=== PATIENT | female | born 1980 | race Caucasian/White ===

== ENCOUNTER 2017-04-09 09:52 | Emergency (ER) | payer MEDICAID ==
[2017-04-09] MEDS ORDERED: Sodium Chloride 0.9% 10 ML Syringe FLUSH PRN (11:32)
[2017-04-09] MEDS ORDERED: Ondansetron 4 MG/2 ML SDV IVPUSH ONE (11:33)
[2017-04-09] MEDS ORDERED: Ketorolac 30 MG/ML SDV IVPUSH ONE (11:33)
[2017-04-09] MEDS ORDERED: Sodium Chloride 0.9% 1,000 ML IV ONE (11:33)
--- NOTE | 2017-04-09 12:40 | CR ---
Chest: Two views of the chest were obtained. Comparison: No prior chest x-ray. Heart size at the upper limits of normal. Upper mediastinum is within normal limits. Lungs are clear. Bony structures are unremarkable. Surgical clips are seen within the upper abdomen. Impression: 1. Nothing acute is seen on two-view chest x-ray. Diagnostic code #2
--- NOTE | 2017-04-09 12:43 | EDM.PDOC ---
ED HPI GENERAL MEDICAL PROBLEM - General Chief Complaint: General Stated Complaint: WEAKNESS Time Seen by Provider: 04/09/17 11:32 Source of Information: Reports: Patient History Limitations: Reports: No Limitations - History of Present Illness INITIAL COMMENTS - FREE TEXT/NARRATIVE: 36-year-old female presents for evaluation and treatment of weakness, dizziness , nausea and vomiting. Patient reports that her symptoms started Wednesday. Reports that her symptoms started with a hoarse voice. She is then developed nausea, vomiting, chills, dizziness, weakness and a dry nonproductive cough. Reports 2 episodes of vomiting. She denies any abdominal pain, diarrhea or fevers. Reports she feels short of breath with exertion. Patient works at [employer]. She did not get a flu vaccine this season. Duration: Day(s): (3) - Related Data Allergies Allergy/AdvReac Type Severity Reaction Status Date / Time Penicillins Allergy Nausea and Verified 04/09/17 10:06 Vomiting Home Meds: Home Meds . [No Known Home Meds] 04/09/17 [History] Past Medical History HEENT History: Reports: Impaired Vision Other HEENT History: wears corrective lenses Social & Family History - Tobacco Use Smoking Status *Q: Current Every Day Smoker Years of Tobacco use: 19 Packs/Tins Daily: 0.5 Used Tobacco, but Quit: No Second Hand Smoke Exposure: No - Caffeine Use Caffeine Use: Reports: Soda - Recreational Drug Use Recreational Drug Use: No ED ROS GENERAL - Review of Systems Review Of Systems: See Below Constitutional: Reports: Chills, Malaise, Weakness, Fatigue. Denies: Fever HEENT: Reports: Throat Pain. Denies: Ear Pain Respiratory: Reports: Cough. Denies: Sputum Cardiovascular: Reports: Dyspnea on Exertion GI/Abdominal: Reports: Nausea, Vomiting. Denies: Abdominal Pain, Diarrhea Neurological: Reports: Headache ED EXAM, GENERAL - Physical Exam Exam: See Below Exam Limited By: No Limitations General Appearance: Alert, WD/WN, No Apparent Distress Eye Exam: Bilateral Eye: Normal Inspection Ears: Normal External Exam, Normal Canal, Hearing Grossly Normal, Normal TMs Nose: Normal Inspection Throat/Mouth: Normal Inspection, Normal Lips, Normal Oropharynx, Normal Voice, No Airway Compromise Respiratory/Chest: No Respiratory Distress, Lungs Clear, Normal Breath Sounds Cardiovascular: Normal Peripheral Pulses, Regular Rate, Rhythm, No Murmur GI/Abdominal: Soft, Non-Tender Neurological: Alert, Oriented, Normal Cognition Psychiatric: Normal Affect, Normal Mood Skin Exam: Warm, Dry, Normal Color Course - Vital Signs Last Recorded V/S: Last Vital Signs Temp 36.6 C 04/09/17 10:03 Pulse 79 04/09/17 10:03 Resp 20 04/09/17 10:03 BP 152/101 H 04/09/17 10:03 Pulse Ox 98 04/09/17 10:06 Orthostatic Blood Pressure [ 143/104 Standing] Orthostatic Blood Pressure [ 143/111 Sitting] Orthostatic Blood Pressure [ 154/104 Supine] - Orders/Labs/Meds Orders: Active Orders 24 hr Category Date Time Status Peripheral IV Care [RC] . DIRECTED Care 04/09/17 11:33 Active CULTURE STREP A CONFIRMATION [] Stat Lab 04/09/17 12:02 Results STREP SCRN A RAPID W CULT CONF [] Stat Lab 04/09/17 12:02 Results Peripheral IV Insertion Adult [OM.PC] Routine Oth 04/09/17 11:31 Ordered Labs: Laboratory Tests 04/09/17 04/09/17 Range/Units 11:50 11:50 WBC 8.29 (3.98-10.04) K/mm3 RBC 4.58 (3.98-5.22) M/mm3 Hgb 12.8 (11.2-15.7) gm/L Hct 39.9 (34.1-44.9) % MCV 87.1 (79.4-94.8) fl MCH 27.9 (25.6-32.2) pg MCHC 32.1 L (32.2-35.5) g/dl RDW Std Deviation 46.7 H (36.4-46.3) fL Plt Count 298 (182-369) K/mm3 MPV 9.6 (9.4-12.3) fl Neutrophils % (Manual) 49 (40-60) % Band Neutrophils % 3 (0-10) % Lymphocytes % (Manual) 36 (20-40) % Atypical Lymphs % 0 % Monocytes % (Manual) 7 (2-10) % Eosinophils % (Manual) 5 (0.7-5.8) % Basophils % (Manual) 0 L (0.1-1.2) Platelet Estimate Adequate RBC Morph Comment Normal Sodium 141 (136-145) mEq/L Potassium 3.9 (3.5-5.1) mEq/L Chloride 106 (98-107) mEq/L Carbon Dioxide 28 (21-32) mEq/L Anion Gap 10.9 (5-15) BUN 7 (7-18) mg/dL Creatinine 0.9 (0.55-1.02) mg/dL Est Cr Clr Drug Dosing 75.34 mL/min Estimated GFR (MDRD) > 60 (>60) mL/min BUN/Creatinine Ratio 7.8 L (14-18) Glucose 92 (74-106) mg/dL Calcium 8.7 (8.5-10.1) mg/dL Total Bilirubin 0.2 (0.2-1.0) mg/dL AST 20 (15-37) U/L ALT 27 (14-59) U/L Alkaline Phosphatase 97 (46-116) U/L C-Reactive Protein 3.2 H* (<1.0) mg/dL Total Protein 8.0 (6.4-8.2) g/dl Albumin 3.6 (3.4-5.0) g/dl Globulin 4.4 gm/dL Albumin/Globulin Ratio 0.8 L (1-2) Meds: Medications Discontinued Medications Generic Name Dose Route Start Last Admin Trade Name Freq PRN Reason Stop Dose Admin Sodium Chloride 1,000 mls @ 999 mls/hr 04/09/17 11:33 04/09/17 11:57 Normal Saline IV 04/09/17 12:33 999 mls/hr ONETIME ONE Administration Ketorolac Tromethamine 30 mg 04/09/17 11:33 04/09/17 11:59 Toradol IVPUSH 04/09/17 11:34 30 mg ONETIME ONE Administration Ondansetron HCl 4 mg 04/09/17 11:33 04/09/17 11:57 Zofran IVPUSH 04/09/17 11:34 4 mg ONETIME ONE Administration Sodium Chloride 10 ml 04/09/17 11:32 04/09/17 11:59 Saline Flush FLUSH 10 ml ASDIRECTED PRN Administration Keep Vein Open - Radiology Interpretation Free Text/Narrative:: Chest: Two views of the chest were obtained. Comparison: No prior chest x-ray. Heart size at the upper limits of normal. Upper mediastinum is within normal limits. Lungs are clear. Bony structures are unremarkable. Surgical clips are seen within the upper abdomen. Impression: 1. Nothing acute is seen on two-view chest x-ray. - Re-Assessments/Exams Free Text/Narrative Re-Assessment/Exam: 04/09/17 13:15 influenza returned negative rapid strep returned negative I reviewed the labs and imaging with the patient. I feel this is a viral upper respiratory illness. Recommend fluids, Tylenol, Motrin and rest. Note given for work. discharge instructions as documented. Departure - Departure Time of Disposition: :18 Disposition: Home, Self-Care 01 Condition: Fair Clinical Impression: Viral upper respiratory illness - Discharge Information Instructions: Upper Respiratory Infection, Adult, [id number] Referrals: PCP,None [Primary Care Provider] - Forms: ED Department Discharge, ED Return to Work/School Form Additional Instructions: make sure you are drinking plenty of fluids. Note given for work. [id number] Tylenol or Motrin as needed for headaches and body relief. Follow up with family medicine if your symptoms have not improved much within 2 weeks. Please return to the ER if your symptoms change or worsen. - My Orders Last 24 Hours: My Active Orders 04/09/17 11:31 Peripheral IV Insertion Adult [OM.PC] Routine 04/09/17 11:33 Peripheral IV Care [RC] . DIRECTED 04/09/17 12:02 CULTURE STREP A CONFIRMATION [RM] Stat STREP SCRN A RAPID W CULT CONF [RM] Stat - Assessment/Plan Last 24 Hours: My Active Orders 04/09/17 11:31 Peripheral IV Insertion Adult [OM.PC] Routine 04/09/17 11:33 Peripheral IV Care [RC] . DIRECTED 04/09/17 12:02 CULTURE STREP A CONFIRMATION [RM] Stat STREP SCRN A RAPID W CULT CONF [RM] Stat
== END 2017-04-09 13:30 | disposition home or self-care (01) ==
LOC: JD.ED 09:52
DX: J06.9 Acute upper respiratory infection, unspecified (principal); F17.210 Nicotine dependence, cigarettes, uncomplicated; Z88.0 Allergy status to penicillin
CPT/HCPCS: 36415; 71046; 80053; 85025; 86140; 87081; 87430; 87804; 96361; 96374; 96375; 99284; J1885; J2405; J7040; J7050

== ENCOUNTER 2018-07-21 10:45 | Emergency (ER) | payer MEDICAID ==
[2018-07-21] MEDS ORDERED: Sodium Chloride 0.9% 10 ML Syringe FLUSH PRN (10:52)
[2018-07-21] MEDS ORDERED: Sodium Chloride 0.9% 1,000 ML IV SCH (11:00)
[2018-07-21] MEDS ORDERED: Sodium Chloride 0.9% 10 ML Syringe FLUSH ONE (12:09)
[2018-07-21] MEDS ORDERED: Iohexol 350 MG/ML 75 ML Bottle IVPUSH ONE (12:09)
[2018-07-21] MEDS ORDERED: Sodium Chloride 0.9% 100 ML IV SCH (12:15)
--- NOTE | 2018-07-21 12:42 | EDM.PDOC ---
ED HPI GENERAL MEDICAL PROBLEM - General Chief Complaint: Syncope Stated Complaint: [facility] Time Seen by Provider: 07/21/18 10:52 Source of Information: Reports: Patient, EMS History Limitations: Reports: No Limitations - History of Present Illness INITIAL COMMENTS - FREE TEXT/NARRATIVE: The patient presents by [facility] for syncope. 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 The next thing she knew she woke up and saw paramedics tending to her. She has never had this happen before. She was feeling good before she was at work. She is on a diet but she had eaten [employer] before work. She had some chest pain when she woke up earlier. She has no headache or neck pain. She does not feel short of breath. She has no abdominal pain, nausea or vomiting. She does not think she is . She has no history of PE or DVT. Onset: Sudden Duration: Minutes: Location: Reports: Chest Quality: Reports: Sharp Severity: Moderate Improves with: Reports: None Worsens with: Reports: None Associated Symptoms: Reports: Chest Pain. 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 Chest Pain Score (Numeric/FACES): 2 - Related Data Allergies Allergy/AdvReac Type Severity Reaction Status Date / Time Penicillins AdvReac Nausea and Verified 07/21/18 10:50 Vomiting Home Meds: Home Meds Lisinopril [Prinivil] 20 mg PO DAILY 07/21/18 [History] Venlafaxine [Effexor] 25 mg PO DAILY 07/21/18 [History] Past Medical History HEENT History: Reports: Impaired Vision Other HEENT History: wears corrective lenses Cardiovascular History: Reports: Hypertension Respiratory History: Reports: Asthma, Bronchitis, Recurrent Gastrointestinal History: Reports: None Genitourinary History: Reports: None 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: , 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 Musculoskeletal History: Reports: Back Pain, Chronic, Fracture, Other (See Below ) Other Musculoskeletal History: Wrist 2004 Neurological History: Reports: None Psychiatric History: Reports: Anxiety, Depression Endocrine/Metabolic History: Reports: Obesity/BMI 30+ Hematologic History: Reports: None Immunologic History: Reports: None Oncologic (Cancer) History: Reports: None Dermatologic History: Reports: None - Infectious Disease History Infectious Disease History: Reports: None - Past Surgical History Head Surgeries/Procedures: Reports: None HEENT Surgical History: Reports: Oral Surgery Social & Family History - Family History Family Medical History: Noncontributory HEENT: Reports: None Cardiac: Reports: Hypertension, [place], Pacemaker Respiratory: Reports: None GI: Reports: None : Reports: None OBGYN: Reports: None Musculoskeletal: Reports: None Neurological: Reports: CVA, Dementia Psychiatric: Reports: Anxiety, Depression Endocrine/Metabolic: Reports: Diabetes, type II, Hypothyroidism Hematologic: Reports: None Oncologic: Reports: Liver, Metastatic - Tobacco Use Smoking Status *Q: Current Every Day Smoker Years of Tobacco use: 20 Packs/Tins Daily: 1 - Caffeine Use Caffeine Use: Reports: None - Recreational Drug Use Recreational Drug Use: Yes Drug Use in Last 12 Months: No Recreational Drug Type: Reports: Marijuana/Hashish ED ROS GENERAL - Review of Systems Review Of Systems: See Below Constitutional: Reports: No Symptoms HEENT: Reports: No Symptoms Respiratory: Reports: No Symptoms Cardiovascular: Reports: Chest Pain, Syncope Endocrine: Reports: No Symptoms GI/Abdominal: Reports: No Symptoms : Reports: No Symptoms Musculoskeletal: Reports: No Symptoms ED EXAM, GENERAL - Physical Exam Exam: See Below Exam Limited By: No Limitations General Appearance: Alert, No Apparent Distress Ears: Normal External Exam Nose: Normal Inspection Head: Atraumatic, Normocephalic Neck: Normal Inspection, Supple, Non-Tender Respiratory/Chest: No Respiratory Distress, Lungs Clear, Normal Breath Sounds Cardiovascular: Regular Rate, Rhythm, No Edema, No Murmur GI/Abdominal: Soft, Non-Tender, No Organomegaly, No Mass Back Exam: Normal Inspection Extremities: Normal Inspection EKG INTERPRETATION EKG Date: 07/21/18 Time: 11:01 Rhythm: NSR Rate (Beats/Min): 67 Mcbee: Normal P-Wave: Present QRS: Normal ST-T: Normal QT: Normal Course - Vital Signs Last Recorded V/S: Last Vital Signs Temp 97.7 F 07/21/18 10:54 Pulse 61 07/21/18 10:54 Resp 14 07/21/18 10:54 BP 146/105 H 07/21/18 10:54 Pulse Ox 96 07/21/18 10:54 - Orders/Labs/Meds Orders: Active Orders 24 hr Category Date Time Status Cardiac Monitoring [RC] . DIRECTED Care 07/21/18 10:53 Active EKG Documentation Completion [RC] STAT Care 07/21/18 10:54 Active Holter Monitor 48 Hours [RC] .PRN Care 07/21/18 13:43 Active Peripheral IV Care [RC] . DIRECTED Care 07/21/18 10:54 Active Sodium Chloride 0.9% [Normal Saline] 1,000 ml Med 07/21/18 11:00 Active IV .BOLUS Sodium Chloride 0.9% [Normal Saline] 100 ml Med 07/21/18 12:15 Active IV ASDIRECTED Sodium Chloride 0.9% [Saline Flush] Med 07/21/18 10:52 Active 10 ml FLUSH ASDIRECTED PRN Peripheral IV Insertion Adult [OM.PC] Stat Oth 07/21/18 10:52 Ordered Medication Orders Sodium Chloride (Normal Saline) 1,000 mls @ 1,000 mls/hr IV .BOLUS NEIL Last Admin: 07/21/18 11:09 Dose: 1,000 mls/hr Sodium Chloride (Normal Saline) 100 mls @ 60 mls/hr IV ASDIRECTED NEIL Last Admin: 07/21/18 12:34 Dose: 60 mls/hr Sodium Chloride (Saline Flush) 10 ml FLUSH ASDIRECTED PRN PRN Reason: Keep Vein Open Last Admin: 07/21/18 11:09 Dose: 10 ml Labs: Laboratory Tests 07/21/18 07/21/18 07/21/18 Range/Units 11:10 11:10 11:10 WBC 11.51 H (3.98-10.04) K/mm3 RBC 4.18 (3.98-5.22) M/mm3 Hgb 12.0 (11.2-15.7) gm/L Hct 37.6 (34.1-44.9) % MCV 90.0 (79.4-94.8) fl MCH 28.7 (25.6-32.2) pg MCHC 31.9 L (32.2-35.5) g/dl RDW Std Deviation 44.7 (36.4-46.3) fL Plt Count 261 (182-369) K/mm3 MPV 10.2 (9.4-12.3) fl Neut % (Auto) 69.4 (34.0-71.1) % Lymph % (Auto) 19.7 (19.3-51.7) % Childress % (Auto) 7.0 (4.7-12.5) % Eos % (Auto) 3.4 (0.7-5.8) Baso % (Auto) 0.3 (0.1-1.2) % Neut # (Auto) 7.99 H (1.56-6.13) K/mm3 Lymph # (Auto) 2.27 (1.18-3.74) K/mm3 Childress # (Auto) 0.81 H (0.24-0.36) K/mm3 Eos # (Auto) 0.39 H (0.04-0.36) K/mm3 Baso # (Auto) 0.03 (0.01-0.08) K/mm3 D-Dimer, Quantitative 0.69 H (0.19-0.50) mg/L Sodium 141 (136-145) mEq/L Potassium 4.1 (3.5-5.1) mEq/L Chloride 105 (98-107) mEq/L Carbon Dioxide 27 (21-32) mEq/L Anion Gap 13.1 (5-15) BUN 14 (7-18) mg/dL Creatinine 0.9 (0.55-1.02) mg/dL Est Cr Clr Drug Dosing 74.62 mL/min Estimated GFR (MDRD) > 60 (>60) mL/min BUN/Creatinine Ratio 15.6 (14-18) Glucose 103 (74-106) mg/dL Calcium 8.7 (8.5-10.1) mg/dL Total Bilirubin 0.3 (0.2-1.0) mg/dL AST 14 L (15-37) U/L ALT 23 (14-59) U/L Alkaline Phosphatase 82 (46-116) U/L Troponin I < 0.017 (0.00-0.056) ng/mL Total Protein 7.3 (6.4-8.2) g/dl Albumin 3.4 (3.4-5.0) g/dl Globulin 3.9 gm/dL Albumin/Globulin Ratio 0.9 L (1-2) HCG, Qual (NEGATIVE) 07/21/18 Range/Units 11:10 WBC (3.98-10.04) K/mm3 RBC (3.98-5.22) M/mm3 Hgb (11.2-15.7) gm/L Hct (34.1-44.9) % MCV (79.4-94.8) fl MCH (25.6-32.2) pg MCHC (32.2-35.5) g/dl RDW Std Deviation (36.4-46.3) fL Plt Count (182-369) K/mm3 MPV (9.4-12.3) fl Neut % (Auto) (34.0-71.1) % Lymph % (Auto) (19.3-51.7) % Childress % (Auto) (4.7-12.5) % Eos % (Auto) (0.7-5.8) Baso % (Auto) (0.1-1.2) % Neut # (Auto) (1.56-6.13) K/mm3 Lymph # (Auto) (1.18-3.74) K/mm3 Childress # (Auto) (0.24-0.36) K/mm3 Eos # (Auto) (0.04-0.36) K/mm3 Baso # (Auto) (0.01-0.08) K/mm3 D-Dimer, Quantitative (0.19-0.50) mg/L Sodium (136-145) mEq/L Potassium (3.5-5.1) mEq/L Chloride (98-107) mEq/L Carbon Dioxide (21-32) mEq/L Anion Gap (5-15) BUN (7-18) mg/dL Creatinine (0.55-1.02) mg/dL Est Cr Clr Drug Dosing mL/min Estimated GFR (MDRD) (>60) mL/min BUN/Creatinine Ratio (14-18) Glucose (74-106) mg/dL Calcium (8.5-10.1) mg/dL Total Bilirubin (0.2-1.0) mg/dL AST (15-37) U/L ALT (14-59) U/L Alkaline Phosphatase (46-116) U/L Troponin I (0.00-0.056) ng/mL Total Protein (6.4-8.2) g/dl Albumin (3.4-5.0) g/dl Globulin gm/dL Albumin/Globulin Ratio (1-2) HCG, Qual Negative (NEGATIVE) Meds: Medications Generic Name Dose Route Start Last Admin Trade Name Freq PRN Reason Stop Dose Admin Sodium Chloride 1,000 mls @ 1,000 mls/hr 07/21/18 11:00 07/21/18 11:09 Normal Saline IV 1,000 mls/hr .BOLUS NEIL Administration Sodium Chloride 100 mls @ 60 mls/hr 07/21/18 12:15 07/21/18 12:34 Normal Saline IV 60 mls/hr ASDIRECTED NEIL Administration Sodium Chloride 10 ml 07/21/18 10:52 07/21/18 11:09 Saline Flush FLUSH 10 ml ASDIRECTED PRN Administration Keep Vein Open Discontinued Medications Generic Name Dose Route Start Last Admin Trade Name Freq PRN Reason Stop Dose Admin Iohexol 75 ml 07/21/18 12:09 07/21/18 12:34 Omnipaque IVPUSH 07/21/18 12:10 75 ml ONETIME ONE Administration Sodium Chloride 10 ml 07/21/18 12:09 07/21/18 12:34 Saline Flush FLUSH 07/21/18 12:10 10 ml ONETIME ONE Administration - Re-Assessments/Exams Free Text/Narrative Re-Assessment/Exam: 07/21/18 12:44 I ordered an IV NS 1L bolus, EKG, CXR and labs. Her EKG shows a NSR with no acute changes. Her WBC is elevated at 11.51. Her D-dimer was elevated at 0.69. I have ordered a CT angio of her chest. Her CMP looks good. Her troponin is negative. Her HCG is negative. 07/21/18 13:[address] shows dilated ascending aorta with AP dimension of 4.3cm. This is unusual for a patient of this age. Evaluation of the aortic valve is recommended to rule out poststenotic dilation. Consider echocardiogram. No findings of PE. Other incidental findings. Nothing acute is appreciated. I have ordered an echocardiogram and holter monitor. Departure - Departure Time of Disposition: 13:50 Disposition: Home, Self-Care 01 Condition: Good Clinical Impression: Ascending aorta dilation Syncope Qualifiers: Syncope type: unspecified Qualified Code(s): R55 - Syncope and collapse Referrals: Yvon Leal PA-C [Primary Care Provider] - 2 Weeks Forms: ED Department Discharge Additional Instructions: Wear the holter monitor for a couple of days. I have ordered an echocardiogram of your heart. That will be on August 03 at 1pm. Follow up with Yvon Leal in a couple of weeks. Drink plenty of water and please return if you are worse. - My Orders Last 24 Hours: My Active Orders 07/21/18 10:52 Sodium Chloride 0.9% [Saline Flush] 10 ml FLUSH ASDIRECTED PRN Peripheral IV Insertion Adult [OM.PC] Stat 07/21/18 10:53 Cardiac Monitoring [RC] . DIRECTED 07/21/18 10:54 EKG Documentation Completion [RC] STAT Peripheral IV Care [RC] . DIRECTED 07/21/18 11:00 Sodium Chloride 0.9% [Normal Saline] 1,000 ml IV .BOLUS 07/21/18 12:15 Sodium Chloride 0.9% [Normal Saline] 100 ml IV ASDIRECTED 07/21/18 13:43 Holter Monitor 48 Hours [RC] .PRN - Assessment/Plan Last 24 Hours: My Active Orders 07/21/18 10:52 Sodium Chloride 0.9% [Saline Flush] 10 ml FLUSH ASDIRECTED PRN Peripheral IV Insertion Adult [OM.PC] Stat 07/21/18 10:53 Cardiac Monitoring [RC] . DIRECTED 07/21/18 10:54 EKG Documentation Completion [RC] STAT Peripheral IV Care [RC] . DIRECTED 07/21/18 11:00 Sodium Chloride 0.9% [Normal Saline] 1,000 ml IV .BOLUS 07/21/18 12:15 Sodium Chloride 0.9% [Normal Saline] 100 ml IV ASDIRECTED 07/21/18 13:43 Holter Monitor 48 Hours [RC] .PRN
--- NOTE | 2018-07-21 13:05 | CT ---
CT chest Technique: Multiple axial sections through the chest were obtained. Intravenous contrast was utilized. Study performed as a pulmonary angiogram protocol. Findings: Ascending aorta is mildly prominent for the patient's age measuring 4.3 cm in AP dimension. Descending aorta at same level is 2.5 cm. Pulmonary arteries are well opacified. No filling defects are seen to indicate pulmonary embolism. Mediastinum and hilar region show no adenopathy or mass. No pericardial thickening is seen. Small portion of the visualized upper abdominal structures show nothing acute. Surgical clips are partially seen compatible with previous cholecystectomy. Lungs are clear. No acute parenchymal change is seen. No pleural effusions or pneumothorax is identified. Bone window settings were reviewed which show no acute calvarial abnormality. Impression: 1. Dilated ascending aorta with AP dimension of 4.3 cm. This is unusual for a patient of this age. Evaluation of the aortic valve is recommended to rule out poststenotic dilatation (consider echocardiogram). 2. No findings of pulmonary embolism. 3. Other incidental findings. Nothing acute is appreciated. Diagnostic code #3
== END 2018-07-21 14:30 | disposition home or self-care (01) ==
LOC: JD.ED 10:45
DX: I77.810 Thoracic aortic ectasia (principal); R55 Syncope and collapse; I10 Essential (primary) hypertension; F41.9 Anxiety disorder, unspecified; F32.9 Major depressive disorder, single episode, unspecified; F17.210 Nicotine dependence, cigarettes, uncomplicated; Z88.0 Allergy status to penicillin; Z79.899 Other long term (current) drug therapy
CPT/HCPCS: 36415; 71275; 80053; 84484; 84703; 85025; 85379; 93005; 93225; 93226; 96360; 99284; J7030; J7040; Q9967; 93010

== ENCOUNTER 2018-08-16 07:24 | Emergency (ER) | payer MEDICAID ==
--- NOTE | 2018-08-16 07:57 | EDM.PDOC ---
ED HPI GENERAL MEDICAL PROBLEM - General Chief Complaint: Chest Pain Stated Complaint: CHEST PAIN/SOB Time Seen by Provider: 08/16/18 07:39 - History of Present Illness INITIAL COMMENTS - FREE TEXT/NARRATIVE: 37-year-old female presents emergency room with chest pain and cough. This started last night and is really bothering her this morning. At times it feels like her heart to jump out of her chest. The pain is really aggravated by deep breathing. Patient has syncopal episode last month she had a nondiagnostic cardiac echo and Holter monitoring done. Of significance she has a mildly dilated ascending aorta. The patient continues to smoke however she's decreased somewhat. She is down to about half a pack a day. Patient has not taken any medication for this. Patient denies says she cannot get . Patient has elevated blood pressure takes 2 blood pressure medications at this time. Chest Pain Score (Numeric/FACES): 4 - Related Data Allergies Allergy/AdvReac Type Severity Reaction Status Date / Time Penicillins AdvReac Nausea and Verified 08/16/18 07:37 Vomiting Home Meds: Home Meds Lisinopril [Prinivil] 20 mg PO DAILY 07/21/18 [History] Metoprolol Succinate 25 mg PO DAILY 08/16/18 [History] Past Medical History HEENT History: Reports: Impaired Vision Other HEENT History: wears corrective lenses Cardiovascular History: Reports: Hypertension Respiratory History: Reports: Asthma, Bronchitis, Recurrent Gastrointestinal History: Reports: None Genitourinary History: Reports: None 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: , 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 Musculoskeletal History: Reports: Back Pain, Chronic, Fracture, Other (See Below ) Other Musculoskeletal History: Wrist 2004 Neurological History: Reports: None Psychiatric History: Reports: Anxiety, Depression Endocrine/Metabolic History: Reports: Obesity/BMI 30+ Hematologic History: Reports: None Immunologic History: Reports: None Oncologic (Cancer) History: Reports: None Dermatologic History: Reports: None - Infectious Disease History Infectious Disease History: Reports: None - Past Surgical History Head Surgeries/Procedures: Reports: None HEENT Surgical History: Reports: Oral Surgery GI Surgical History: Reports: Cholecystectomy Female Surgical History: Reports: Tubal Ligation Social & Family History - Family History Family Medical History: Noncontributory HEENT: Reports: None Cardiac: Reports: Hypertension, OR, Pacemaker Respiratory: Reports: None GI: Reports: None : Reports: None OBGYN: Reports: None Musculoskeletal: Reports: None Neurological: Reports: CVA, Dementia Psychiatric: Reports: Anxiety, Depression Endocrine/Metabolic: Reports: Diabetes, type II, Hypothyroidism Hematologic: Reports: None Oncologic: Reports: Liver, Metastatic - Tobacco Use Smoking Status *Q: Current Every Day Smoker Years of Tobacco use: 20 Packs/Tins Daily: 0.5 - Caffeine Use Caffeine Use: Reports: None - Recreational Drug Use Recreational Drug Use: No ED ROS GENERAL - Review of Systems Review Of Systems: See Below Constitutional: Reports: No Symptoms HEENT: Reports: No Symptoms Respiratory: Reports: Shortness of Breath, Pleuritic Chest Pain, Sputum Cardiovascular: Reports: Chest Pain, Palpitations Endocrine: Reports: No Symptoms GI/Abdominal: Reports: No Symptoms : Reports: No Symptoms Musculoskeletal: Reports: No Symptoms Neurological: Reports: No Symptoms Psychiatric: Reports: Anxiety ED EXAM, GENERAL - Physical Exam Exam: See Below Exam Limited By: No Limitations General Appearance: Alert, No Apparent Distress Head: Atraumatic, Normocephalic Neck: Normal Inspection, Supple, Non-Tender, Full Range of Motion. No: Lymphadenopathy (L), Lymphadenopathy (R) Respiratory/Chest: No Respiratory Distress, Lungs Clear, Normal Breath Sounds Cardiovascular: Regular Rate, Rhythm, No Edema, No Murmur GI/Abdominal: Normal Bowel Sounds, Soft, Non-Tender Back Exam: Normal Inspection. No: CVA Tenderness (L), CVA Tenderness (R) Extremities: Normal Inspection, Non-Tender, No Pedal Edema Neurological: Alert, Oriented, Normal Cognition Psychiatric: Anxious (Patient is mildly anxious) Lymphatic: No Adenopathy EKG INTERPRETATION EKG Date: 08/16/18 Rhythm: NSR [place]: Normal P-Wave: Present QRS: Normal ST-T: Normal QT: Normal Comparison: No Change (No change from last month's tracing) Course - Vital Signs Last Recorded V/S: Last Vital Signs Temp 35.9 C 08/16/18 07:35 Pulse 80 08/16/18 07:35 Resp 16 08/16/18 07:35 BP 166/95 H 08/16/18 07:35 Pulse Ox 94 L 08/16/18 07:35 - Orders/Labs/Meds Orders: Active Orders 24 hr Category Date Time Status EKG 12 Lead [EKG Documentation Completion] [RC] STAT Care 08/16/18 07:47 Active RT Post Treatment Assessment [RC] Click to Edit Care 08/16/18 10:42 Active RT Post Treatment Assessment [RC] Click to Edit Care 08/16/18 10:56 Active RT Pre-Treatment Assessment [RC] Click to Edit Care 08/16/18 10:42 Active RT Pre-Treatment Assessment [RC] Click to Edit Care 08/16/18 10:56 Active Chest 2V [CR] Stat Exams 08/16/18 07:57 Taken Labs: Laboratory Tests 08/16/18 08/16/18 08/16/18 Range/Units 08:14 08:14 08:14 WBC 11.21 H (3.98-10.04) K/mm3 RBC 4.22 (3.98-5.22) M/mm3 Hgb 12.2 (11.2-15.7) gm/L Hct 37.7 (34.1-44.9) % MCV 89.3 (79.4-94.8) fl MCH 28.9 (25.6-32.2) pg MCHC 32.4 (32.2-35.5) g/dl RDW Std Deviation 45.5 (36.4-46.3) fL Plt Count 294 (182-369) K/mm3 MPV 9.8 (9.4-12.3) fl Neutrophils % (Manual) 68 H (40-60) % Band Neutrophils % 0 (0-10) % Lymphocytes % (Manual) 18 L (20-40) % Atypical Lymphs % 0 % Monocytes % (Manual) 7 (2-10) % Eosinophils % (Manual) 6 H (0.7-5.8) % Basophils % (Manual) 1 (0.1-1.2) Platelet Estimate Adequate RBC Morph Comment Normal PT 9.9 (9.5-12.1) SECONDS INR < 0.93 APTT 32 H (24-31) SECONDS D-Dimer, Quantitative (0.19-0.50) mg/L Sodium 140 (136-145) mEq/L Potassium 4.2 (3.5-5.1) mEq/L Chloride 107 (98-107) mEq/L Carbon Dioxide 24 (21-32) mEq/L Anion Gap 13.2 (5-15) BUN 14 (7-18) mg/dL Creatinine 0.8 (0.55-1.02) mg/dL Est Cr Clr Drug Dosing 83.95 mL/min Estimated GFR (MDRD) > 60 (>60) mL/min BUN/Creatinine Ratio 17.5 (14-18) Glucose 91 (74-106) mg/dL Calcium 8.2 L (8.5-10.1) mg/dL Total Bilirubin 0.2 (0.2-1.0) mg/dL AST 16 (15-37) U/L ALT 27 (14-59) U/L Alkaline Phosphatase 81 (46-116) U/L Troponin I < 0.017 (0.00-0.056) ng/mL Total Protein 7.0 (6.4-8.2) g/dl Albumin 3.4 (3.4-5.0) g/dl Globulin 3.6 gm/dL Albumin/Globulin Ratio 0.9 L (1-2) HCG, Qual (NEGATIVE) 08/16/18 08/16/18 Range/Units 08:14 08:14 WBC (3.98-10.04) K/mm3 RBC (3.98-5.22) M/mm3 Hgb (11.2-15.7) gm/L Hct (34.1-44.9) % MCV (79.4-94.8) fl MCH (25.6-32.2) pg MCHC (32.2-35.5) g/dl RDW Std Deviation (36.4-46.3) fL Plt Count (182-369) K/mm3 MPV (9.4-12.3) fl Neutrophils % (Manual) (40-60) % Band Neutrophils % (0-10) % Lymphocytes % (Manual) (20-40) % Atypical Lymphs % % Monocytes % (Manual) (2-10) % Eosinophils % (Manual) (0.7-5.8) % Basophils % (Manual) (0.1-1.2) Platelet Estimate RBC Morph Comment PT (9.5-12.1) SECONDS INR APTT (24-31) SECONDS D-Dimer, Quantitative 0.56 H (0.19-0.50) mg/L Sodium (136-145) mEq/L Potassium (3.5-5.1) mEq/L Chloride (98-107) mEq/L Carbon Dioxide (21-32) mEq/L Anion Gap (5-15) BUN (7-18) mg/dL Creatinine (0.55-1.02) mg/dL Est Cr Clr Drug Dosing mL/min Estimated GFR (MDRD) (>60) mL/min BUN/Creatinine Ratio (14-18) Glucose (74-106) mg/dL Calcium (8.5-10.1) mg/dL Total Bilirubin (0.2-1.0) mg/dL AST (15-37) U/L ALT (14-59) U/L Alkaline Phosphatase (46-116) U/L Troponin I (0.00-0.056) ng/mL Total Protein (6.4-8.2) g/dl Albumin (3.4-5.0) g/dl Globulin gm/dL Albumin/Globulin Ratio (1-2) HCG, Qual Negative (NEGATIVE) Meds: Medications Discontinued Medications Generic Name Dose Route Start Last Admin Trade Name Freq PRN Reason Stop Dose Admin Albuterol 8.5 gm 08/16/18 10:41 08/16/18 11:10 Proventil Hfa INH 08/16/18 10:42 Not Given ONETIME ONE Albuterol 6.7 gm 08/16/18 10:55 08/16/18 11:02 Proventil Hfa INH 08/16/18 10:56 2 puff ONETIME ONE Administration Albuterol Confirm 08/16/18 10:54 08/16/18 11:10 Proventil Hfa Administered 08/16/18 10:55 Not Given Dose 6.7 gm INH .STK-MED ONE - Re-Assessments/Exams Free Text/Narrative Re-Assessment/Exam: 08/16/18 09:31 EKG nondiagnostic chest x-ray nondiagnostic labs show a minimally elevated white count troponins normal 08/16/18 10:42 Patient is a normal troponin. Nondiagnostic EKG. Discussed the significance of the heart score with the patient she has a heart score of 1. 1 point for risk factors suspicious family history with a grandfather on the maternal side that had stenting and a pacemaker placed in his 50s and an uncle on that side of the family the past way it is sleep associates a point for family history one point for her elevated blood pressure so to risk factors given her hypertension. EKG is normal troponin negative age less than 45 I discussed with the patient the risk of this and a 1.7% chance of major acute cardiac event 6 weeks She would like to go home and give the albuterol inhaler a try. Use Aleve for her chest wall pain. She has follow-up at the heart-lung clinic on the 12th of this month and she will keep that appointment she will follow-up with her regular provider here locally at the end of this week. 08/16/18 10:51 D-dimer is still pending has not been started and has been collected lab is calibrating the analyzer. 08/16/18 12:00 D-dimer did come back slightly elevated at 0.56 upper end of normal 0.50. Offered CTA patient declined this however she agrees to follow-up in the clinic later this week. Patient was seen here several weeks ago had a d-dimer that was a little higher than this had a CTA that was negative and she does not want to go through this again I did enforce that the safest thing to do would be to recheck it. Departure - Departure Time of Disposition: 12:01 Disposition: Home, Self-Care 01 Clinical Impression: Chest pain, Bronchitis, D-dimer, elevated - Discharge Information Referrals: Yvon Leal PA-C [Primary Care Provider] - Forms: ED Department Discharge Additional Instructions: Return to the emergency room if any questions problems worsening symptoms. Follow-up in the clinic in 2-3 days. Try Aleve, this is [id number], 1 twice daily with meals. Use the inhaler 2 puffs every 4 hours while awake. Quit smoking - My Orders Last 24 Hours: My Active Orders 08/16/18 07:47 EKG 12 Lead [EKG Documentation Completion] [RC] STAT 08/16/18 07:57 Chest 2V [CR] Stat 08/16/18 10:42 RT Post Treatment Assessment [RC] Click to Edit RT Pre-Treatment Assessment [RC] Click to Edit 08/16/18 10:56 RT Post Treatment Assessment [RC] Click to Edit RT Pre-Treatment Assessment [RC] Click to Edit - Assessment/Plan Last 24 Hours: My Active Orders 08/16/18 07:47 EKG 12 Lead [EKG Documentation Completion] [RC] STAT 08/16/18 07:57 Chest 2V [CR] Stat 08/16/18 10:42 RT Post Treatment Assessment [RC] Click to Edit RT Pre-Treatment Assessment [RC] Click to Edit 08/16/18 10:56 RT Post Treatment Assessment [RC] Click to Edit RT Pre-Treatment Assessment [RC] Click to Edit
[2018-08-16] MEDS ORDERED: Albuterol 6.7 GM Inhaler INH ONE ×3 (10:41→10:55)
--- NOTE | 2018-08-18 07:45 | CR ---
Chest: Two views of the chest were obtained. Comparison: Previous chest x-ray of 04/09/17. Heart size and mediastinum are within normal limits. Lungs are clear. Bony structures are unremarkable. Surgical clips are present within the upper abdomen. Impression: 1. Nothing acute is seen. Diagnostic code #2
== END 2018-08-16 12:12 | disposition home or self-care (01) ==
LOC: JD.ED 07:24
DX: J40 Bronchitis, not specified as acute or chronic (principal); R79.1 Abnormal coagulation profile; I10 Essential (primary) hypertension; F17.210 Nicotine dependence, cigarettes, uncomplicated; E66.9 Obesity, unspecified; Z98.890 Other specified postprocedural states; Z90.49 Acquired absence of other specified parts of digestive tract; Z98.51 Tubal ligation status; Z88.0 Allergy status to penicillin
CPT/HCPCS: 36415; 71046; 71046-26; 80053; 84484; 84703; 85007; 85027; 85379; 85610; 85730; 93005; 93010; 94640; 99284; 99285-25

== ENCOUNTER 2019-04-04 19:37 | Emergency (ER) | payer MEDICAID ==
[2019-04-04] MEDS ORDERED: Sodium Chloride 0.9% 10 ML Syringe FLUSH PRN (19:52)
[2019-04-04] MEDS ORDERED: Sodium Chloride 0.9% 1,000 ML IV ONE (19:52)
[2019-04-04] MEDS ORDERED: Ondansetron 4 MG/2 ML SDV IVPUSH ONE (19:53)
[2019-04-04] MEDS ORDERED: Morphine 4 MG/ML Syringe IVPUSH ONE (19:53)
--- NOTE | 2019-04-04 19:56 | EDM.PDOC ---
ED HPI GENERAL MEDICAL PROBLEM - General Chief Complaint: Gastrointestinal Problem Stated Complaint: VOMITING/COLD/BODY ACHES Time Seen by Provider: 04/04/19 19:46 Source of Information: Reports: Patient History Limitations: Reports: No Limitations - History of Present Illness INITIAL COMMENTS - FREE TEXT/NARRATIVE: Patient is unfortunate 38-year-old obese occasion female who presents emergency Department today with complaint of abdominal pain nausea vomiting diarrhea. Patient reports that symptoms started approximately 1:45 AM this morning she woke with pelvic cramping started having vomiting and diarrhea. Patient denies any hematemesis no hematochezia and no melena. Patient reports she has not had any recent travel no known recent antibiotic use. He is a crampy type pain which worsens prior to having diarrhea or vomiting improves after diarrhea or vomiting but does not resolve Abdomen Pain Score (Numeric/FACES): 6 - Related Data Allergies Allergy/AdvReac Type Severity Reaction Status Date / Time Penicillins AdvReac Nausea and Verified 04/04/19 19:53 Vomiting Home Meds: Home Meds lisinopriL [Prinivil] 20 mg PO DAILY 07/21/18 [History] Metoprolol Succinate 25 mg PO DAILY 08/16/18 [History] Ondansetron [Zofran ODT] 4 mg PO TID PRN #8 tab.dis 04/04/19 [Rx] Past Medical History HEENT History: Reports: Impaired Vision Other HEENT History: wears corrective lenses Cardiovascular History: Reports: Hypertension Respiratory History: Reports: Asthma, Bronchitis, Recurrent Gastrointestinal History: Reports: None Genitourinary History: Reports: None 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: , 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 Musculoskeletal History: Reports: Back Pain, Chronic, Fracture, Other (See Below ) Other Musculoskeletal History: Wrist 2004 Neurological History: Reports: None Psychiatric History: Reports: Anxiety, Depression Endocrine/Metabolic History: Reports: Obesity/BMI 30+ Hematologic History: Reports: None Immunologic History: Reports: None Oncologic (Cancer) History: Reports: None Dermatologic History: Reports: None - Infectious Disease History Infectious Disease History: Reports: None - Past Surgical History Head Surgeries/Procedures: Reports: None HEENT Surgical History: Reports: Oral Surgery GI Surgical History: Reports: Cholecystectomy Female Surgical History: Reports: Tubal Ligation Social & Family History - Family History Family Medical History: Noncontributory HEENT: Reports: None Cardiac: Reports: Hypertension, OR, Pacemaker Respiratory: Reports: None GI: Reports: None : Reports: None OBGYN: Reports: None Musculoskeletal: Reports: None Neurological: Reports: CVA, Dementia Psychiatric: Reports: Anxiety, Depression Endocrine/Metabolic: Reports: Diabetes, type II, Hypothyroidism Hematologic: Reports: None Oncologic: Reports: Liver, Metastatic - Caffeine Use Caffeine Use: Reports: None ED ROS GENERAL - Review of Systems Review Of Systems: See Below Constitutional: Denies: Fever, Chills GI/Abdominal: Reports: Abdominal Pain, Diarrhea, Nausea, Vomiting. Denies: Black Stool, Bloody Stool, Hematemesis, Hematochezia ED EXAM, GI/ABD - Physical Exam Exam: See Below Exam Limited By: No Limitations General Appearance: Alert, WD/WN, Mild Distress, Obese Nose: Normal Inspection, Normal Mucosa, No Blood Throat/Mouth: Normal Inspection, Normal Lips, Normal Teeth, Normal Gums, Normal Oropharynx, Normal Voice, No Airway Compromise Head: Atraumatic, Normocephalic Neck: Normal Inspection, Supple, Non-Tender, Full Range of Motion Respiratory/Chest: No Respiratory Distress, Lungs Clear, Normal Breath Sounds, No Accessory Muscle Use, Chest Non-Tender Cardiovascular: Normal Peripheral Pulses, Regular Rate, Rhythm, No Edema, No Gallop, No JVD, No Murmur, No Rub GI/Abdominal Exam: Normal Bowel Sounds, Soft, No Organomegaly, No Distention, No Abnormal Bruit, No Mass, Pelvis Stable, Tender (mild diffuse tenderness) Back Exam: Normal Inspection, Full Range of Motion, NT Extremities: Normal Inspection, Normal Range of Motion, Non-Tender, Normal Capillary Refill, No Pedal Edema Neurological: Alert Skin Exam: Warm, Dry Course - Vital Signs Last Recorded V/S: Last Vital Signs Temp 97.5 F 04/04/19 19:46 Pulse 71 04/04/19 19:46 Resp 18 04/04/19 19:46 BP 183/113 H 04/04/19 19:46 Pulse Ox 93 L 04/04/19 19:46 - Orders/Labs/Meds Orders: Active Orders 24 hr Category Date Time Status UA RFX HUMBERTO AND CULT IF INDIC [URIN] Stat Lab 04/04/19 19:52 Ordered Sodium Chloride 0.9% [Saline Flush] Med 01/21/20 19:52 Active 10 ml FLUSH ASDIRECTED PRN Saline Lock Insert [OM.PC] Stat Oth 04/04/19 19:52 Ordered Medication Orders Sodium Chloride (Saline Flush) 10 ml FLUSH ASDIRECTED PRN PRN Reason: Keep Vein Open Last Admin: 04/04/19 20:09 Dose: 10 ml Labs: Laboratory Tests 04/04/19 04/04/19 04/04/19 Range/Units 20:11 20:11 20:11 WBC 9.47 (3.98-10.04) K/mm3 RBC 4.43 (3.98-5.22) M/mm3 Hgb 12.1 (11.2-15.7) gm/dl Hct 38.3 (34.1-44.9) % MCV 86.5 (79.4-94.8) fl MCH 27.3 (25.6-32.2) pg MCHC 31.6 L (32.2-35.5) g/dl RDW Std Deviation 46.5 H (36.4-46.3) fL Plt Count 330 (182-369) K/mm3 MPV 9.6 (9.4-12.3) fl Neut % (Auto) 74.4 H (34.0-71.1) % Lymph % (Auto) 15.0 L (19.3-51.7) % [place] % (Auto) 9.0 (4.7-12.5) % Eos % (Auto) 1.2 (0.7-5.8) Baso % (Auto) 0.1 (0.1-1.2) % Neut # (Auto) 7.05 H (1.56-6.13) K/mm3 Lymph # (Auto) 1.42 (1.18-3.74) K/mm3 [place] # (Auto) 0.85 H (0.24-0.36) K/mm3 Eos # (Auto) 0.11 (0.04-0.36) K/mm3 Baso # (Auto) 0.01 (0.01-0.08) K/mm3 Sodium 135 L (136-145) mEq/L Potassium 3.4 L (3.5-5.1) mEq/L Chloride 99 (98-107) mEq/L Carbon Dioxide 25 (21-32) mEq/L Anion Gap 14.4 (5-15) BUN 13 (7-18) mg/dL Creatinine 0.9 (0.55-1.02) mg/dL Est Cr Clr Drug Dosing TNP Estimated GFR (MDRD) > 60 (>60) mL/min BUN/Creatinine Ratio 14.4 (14-18) Glucose 105 (74-106) mg/dL Calcium 8.2 L (8.5-10.1) mg/dL Total Bilirubin 0.5 (0.2-1.0) mg/dL AST 13 L (15-37) U/L ALT 24 (14-59) U/L Alkaline Phosphatase 92 (46-116) U/L Total Protein 7.4 (6.4-8.2) g/dl Albumin 3.3 L (3.4-5.0) g/dl Globulin 4.1 gm/dL Albumin/Globulin Ratio 0.8 L (1-2) Lipase 114 (73-393) U/L HCG, Qual Negative (NEGATIVE) Meds: Medications Generic Name Dose Route Start Last Admin Trade Name Freq PRN Reason Stop Dose Admin Sodium Chloride 10 ml 04/04/19 19:52 04/04/19 20:09 Saline Flush FLUSH 10 ml ASDIRECTED PRN Administration Keep Vein Open Discontinued Medications Generic Name Dose Route Start Last Admin Trade Name Freq PRN Reason Stop Dose Admin Sodium Chloride 1,000 mls @ 1,000 mls/hr 04/04/19 19:52 04/04/19 20:08 Normal Saline IV 04/04/19 20:51 1,000 mls/hr ONETIME ONE Administration Morphine Sulfate 4 mg 04/04/19 19:53 04/04/19 20:09 Morphine IVPUSH 04/04/19 19:54 4 mg ONETIME ONE Administration Ondansetron HCl 4 mg 04/04/19 19:53 04/04/19 20:08 Zofran IVPUSH 04/04/19 19:54 4 mg ONETIME ONE Administration - Re-Assessments/Exams Free Text/Narrative Re-Assessment/Exam: 04/04/19 21:11 Patient reports symptoms improved is radiating [place] will discharge patient home and have patient follow up outpatient with PCP Departure - Departure Time of Disposition: 21:11 Disposition: Home, Self-Care 01 Condition: Good Clinical Impression: Vomiting, Diarrhea - Discharge Information Prescriptions: Ondansetron [Zofran ODT] 4 mg PO TID PRN #8 tab.dis PRN Reason: Vomiting Referrals: Yvon Leal PA-C [Primary Care Provider] - Forms: ED Department Discharge Additional Instructions: Home, rest, adequate fluids return as needed for worsening condition Sepsis Event Note - Evaluation Sepsis Screening Result: No Definite Risk - Focused Exam Vital Signs: Vital Signs Temp Pulse Resp BP Pulse Ox 04/04/19 19:46 97.5 F 71 18 183/113 H 93 L Date Exam was Performed: 04/04/19 Time Exam was Performed: 21:11 - My Orders Last 24 Hours: My Active Orders 04/04/19 19:52 UA RFX HUMBERTO AND CULT IF INDIC [URIN] Stat Sodium Chloride 0.9% [Saline Flush] 10 ml FLUSH ASDIRECTED PRN Saline Lock Insert [OM.PC] Stat - Assessment/Plan Last 24 Hours: My Active Orders 04/04/19 19:52 UA RFX HUMBERTO AND CULT IF INDIC [URIN] Stat Sodium Chloride 0.9% [Saline Flush] 10 ml FLUSH ASDIRECTED PRN Saline Lock Insert [OM.PC] Stat
== END 2019-04-04 21:20 | disposition home or self-care (01) ==
LOC: JD.ED 19:37
DX: R11.2 Nausea with vomiting, unspecified (principal); R19.7 Diarrhea, unspecified; I10 Essential (primary) hypertension; E66.9 Obesity, unspecified; Z90.49 Acquired absence of other specified parts of digestive tract; Z88.0 Allergy status to penicillin; Z79.899 Other long term (current) drug therapy
CPT/HCPCS: 36415; 80053; 83690; 84703; 85025; 96361; 96374; 96375; 99284; J2270; J2405; J7030

== ENCOUNTER 2019-05-23 15:53 | Emergency (ER) | payer MEDICAID ==
[2019-05-23] MEDS ORDERED: Dextrose 5%-0.9% NaCl 1,000 ML IV SCH (16:15)
--- NOTE | 2019-05-23 16:21 | EDM.PDOC ---
ED HPI GENERAL MEDICAL PROBLEM - General Source of Information: Reports: Patient, EMS History Limitations: Reports: No Limitations <HeatherGagan vann - Last Filed: 05/23/19 17:13> - General Source of Information: Reports: Patient, EMS History Limitations: Reports: No Limitations - History of Present Illness Treatments [employer] O[employer] CRUSHING: Reports: IV/IO <Burt Bower - Last Filed: 05/23/19 18:29> - General Chief Complaint: Syncope Stated Complaint: [facility] Time Seen by Provider: 05/23/19 16:00 - History of Present Illness INITIAL COMMENTS - FREE TEXT/NARRATIVE: 38 y/o female in today due to a syncopal episode. Patient states that yesterday (05/22/2019) she started to develop a bad cough, but that it was not productive, and she went to bed fine last night. When she woke up this morning she did not feel well again due to her cough, but still went to work and had her fiance bring her inhaler to her. She went home so that she could prepare for her other job, and went out to smoke beforehand and then went back in to get ready. She then states she woke up on the floor in her room to the EMS over the top of her. Report from EMS and patient both stated that after the syncopal incident she felt her heart racing more, and was confused about what happened. She further states that her only other complaint beyond the cough is some neck stiffness from how she "woke up on the ground", and she complains of diplopia when trying to look to the right with both eyes. She denies a headache, fever, chills, body aches, ear pain or tinnitus, eye pain, chest pain, weakness or lack of sensation, she denies stomach upset, any troubles with urination or defecation. She does confirm a PMH of one prior syncopal episode, but that one was preceded by fever and chills and she had been eating and drinking less, she also has a history of allergies and when she has sicknesses she takes her inhalers for this purpose. Additional, PMH includes a history of bipolar 1 and depression and anxiety which she is not taking any medications for anymore. ( Gagan Bright) - Related Data Allergies Allergy/AdvReac Type Severity Reaction Status Date / Time Penicillins AdvReac Nausea and Verified 05/23/19 15:58 Vomiting Home Meds: Home Meds lisinopriL [Prinivil] 20 mg PO DAILY 07/21/18 [History] Metoprolol Succinate 25 mg PO DAILY 08/16/18 [History] Hydrocodone/Chlorphen P-Stirex [Hydrocodone-Chlorphen ER Susp] 5 ml PO Q12H PRN #60 ml 05/23/19 [Rx] Past Medical History Cardiovascular History: Reports: Other (See Below) (prior syncopal episode) Psychiatric History: Reports: Bipolar <Gagan Bright - Last Filed: 05/23/19 17:13> HEENT History: Reports: Impaired Vision Other HEENT History: wears corrective lenses Cardiovascular History: Reports: Hypertension Respiratory History: Reports: Asthma, Bronchitis, Recurrent Gastrointestinal History: Reports: None Genitourinary History: Reports: None [employer] History: Reports: , Spontaneous Musculoskeletal History: Reports: Back Pain, Chronic, Fracture, Other (See Below ) Other Musculoskeletal History: Wrist 2004 Neurological History: Reports: None Psychiatric History: Reports: Anxiety, Depression Endocrine/Metabolic History: Reports: Obesity/BMI 30+ Hematologic History: Reports: None Immunologic History: Reports: None Oncologic (Cancer) History: Reports: None Dermatologic History: Reports: None - Infectious Disease History Infectious Disease History: Reports: None - Past Surgical History Head Surgeries/Procedures: Reports: None HEENT Surgical History: Reports: Oral Surgery GI Surgical History: Reports: Cholecystectomy Female Surgical History: Reports: Tubal Ligation <Burt Bower - Last Filed: 05/23/19 18:29> Social & Family History - Family History Family Medical History: Noncontributory HEENT: Reports: None Cardiac: Reports: Hypertension, [place], Pacemaker Respiratory: Reports: None GI: Reports: None : Reports: None OBGYN: Reports: None Musculoskeletal: Reports: None Neurological: Reports: CVA, Dementia Psychiatric: Reports: Anxiety, Depression Endocrine/Metabolic: Reports: Diabetes, type II, Hypothyroidism Hematologic: Reports: None Oncologic: Reports: Liver, Metastatic - Caffeine Use Caffeine Use: Reports: None <Burt Bower Last Filed: 05/23/19 18:29> ED ROS GENERAL - Review of Systems Review Of Systems: See Below Constitutional: Reports: No Symptoms HEENT: Reports: Glasses, Sinus Problem, Other (diplopia with right lateral gaze) Respiratory: Reports: Cough, Other (current smoker) Cardiovascular: Reports: No Symptoms Endocrine: Reports: No Symptoms GI/Abdominal: Reports: No Symptoms : Reports: No Symptoms Musculoskeletal: Reports: Neck Pain (Neck stiffness more than pain ) Skin: Reports: No Symptoms Neurological: Reports: Confusion (from syncopal episode ), Syncope Psychiatric: Reports: Anxiety, Confusion Hematologic/Lymphatic: Reports: No Symptoms <Gagan Bright Last Filed: 05/23/19 17:13> - Physical Exam Exam: See Below Exam Limited By: No Limitations General Appearance: Alert, WD/WN, No Apparent Distress, Anxious Eye Exam: Bilateral Eye: Abnormal EOM (diplopia with rightward lateral gaze), EOMI, PERRL Ears: Normal External Exam, Normal Canal, Hearing Grossly Normal, Normal TMs Nose: Normal Inspection Throat/Mouth: Normal Inspection, Normal Lips, Normal Teeth, Normal Gums, Normal Oropharynx, Normal Voice, No Airway Compromise Head Exam: Atraumatic, Normocephalic Neck: Normal Inspection, Supple, Full Range of Motion, Tender Midline Respiratory/Chest: No Respiratory Distress, Lungs Clear, Normal Breath Sounds, Chest Non-Tender Cardiovascular: Normal Peripheral Pulses, Regular Rate, Rhythm, No Edema, No Gallop, No JVD, No Murmur, No Rub GI/Abdominal: Normal Bowel Sounds, Soft, Non-Tender, No Distention, No Mass Neuro Exam (Abbreviated): Alert, Oriented, CN II-XII Intact, Normal Cognition, No Motor/Sensory Deficits Back Exam: Normal Inspection Extremities: Normal Inspection, Normal Range of Motion, Non-Tender, No Pedal Edema Psychiatric: Normal Affect, Normal Mood Skin Exam: Warm, Dry, Intact <Gagan Bright Last Filed: 05/23/19 17:13> EKG INTERPRETATION EKG Date: 05/23/19 Time: 16:32 Rhythm: NSR Rate (Beats/Min): 71 [place]: Normal P-Wave: Present QRS: Normal ST-T: Normal QT: Prolonged (Mildly prolonged) <Burt Bower Filed: 05/23/19 18:29> Course <Gagan Bright Last Filed: 05/23/19 17:13> <Burt Bower Last Filed: 05/23/19 18:29> - Vital Signs Last Recorded V/S: Last Vital Signs Temp 36.7 C 05/23/19 15:56 Pulse 69 05/23/19 15:56 Resp 20 05/23/19 15:56 BP 177/118 H 05/23/19 15:56 Pulse Ox 97 05/23/19 15:56 - Orders/Labs/Meds Orders: Active Orders 24 hr Category Date Time Status EKG Documentation Completion [RC] STAT Care 05/23/19 16:14 Active Dextrose 5%-0.9% NaCl [Dextrose 5%-Normal Saline] 1,000 Med 05/23/19 16:15 Active ml IV ASDIRECTED Medication Orders Dextrose/Sodium Chloride (Dextrose 5%-Normal Saline) 1,000 mls @ 999 mls/hr IV ASDIRECTED NEIL Last Admin: 05/23/19 16:32 Dose: 999 mls/hr Labs: Laboratory Tests 05/23/19 05/23/19 05/23/19 Range/Units 16:48 16:48 16:48 WBC 12.03 H (3.98-10.04) K/mm3 RBC 4.21 (3.98-5.22) M/mm3 Hgb 11.2 (11.2-15.7) gm/dl Hct 36.4 (34.1-44.9) % MCV 86.5 (79.4-94.8) fl MCH 26.6 (25.6-32.2) pg MCHC 30.8 L (32.2-35.5) g/dl RDW Std Deviation 47.3 H (36.4-46.3) fL Plt Count 327 (182-369) K/mm3 MPV 9.6 (9.4-12.3) fl Neut % (Auto) 68.9 (34.0-71.1) % Lymph % (Auto) 19.5 (19.3-51.7) % [place] % (Auto) 6.7 (4.7-12.5) % Eos % (Auto) 4.6 (0.7-5.8) Baso % (Auto) 0.2 (0.1-1.2) % Neut # (Auto) 8.30 H (1.56-6.13) K/mm3 Lymph # (Auto) 2.35 (1.18-3.74) K/mm3 [place] # (Auto) 0.80 H (0.24-0.36) K/mm3 Eos # (Auto) 0.55 H (0.04-0.36) K/mm3 Baso # (Auto) 0.02 (0.01-0.08) K/mm3 Manual Slide Review Normal smear PT 10.8 (9.7-12.0) SECONDS INR 0.99 APTT 29 D (22-31) SECONDS Sodium 141 (136-145) mEq/L Potassium 3.7 (3.5-5.1) mEq/L Chloride 103 (98-107) mEq/L Carbon Dioxide 25 (21-32) mEq/L Anion Gap 16.7 H (5-15) BUN 14 (7-18) mg/dL Creatinine 0.9 (0.55-1.02) mg/dL Est Cr Clr Drug Dosing 75.46 mL/min Estimated GFR (MDRD) > 60 (>60) mL/min BUN/Creatinine Ratio 15.6 (14-18) Glucose 170 H (74-106) mg/dL Calcium 8.6 (8.5-10.1) mg/dL Magnesium 1.9 (1.8-2.4) mg/dl Total Bilirubin 0.2 (0.2-1.0) mg/dL AST 15 (15-37) U/L ALT 22 (14-59) U/L Alkaline Phosphatase 91 (46-116) U/L C-Reactive Protein 2.4 H* (<1.0) mg/dL Total Protein 7.2 (6.4-8.2) g/dl Albumin 3.2 L (3.4-5.0) g/dl Globulin 4.0 gm/dL Albumin/Globulin Ratio 0.8 L (1-2) Meds: Medications Generic Name Dose Route Start Last Admin Trade Name Freq PRN Reason Stop Dose Admin Dextrose/Sodium Chloride 1,000 mls @ 999 mls/hr 05/23/19 16:15 05/23/19 16:32 Dextrose 5%-Normal Saline IV 999 mls/hr ASDIRECTED NEIL Administration - Radiology Interpretation Free Text/Narrative:: 38-year-old female presents to the ED per [facility] after apparent syncopal event occurred at home. Patient states that she developed a paroxysmal nonproductive cough last evening and has been coughing a good deal today as well. She recognizes that she did not eat or drink all that much today but did have some breakfast. She states she was standing in her bedroom when she woke up on the floor. Dates she had no warning that she was going to pass out such as dizziness lightheadedness nausea or any pain anywhere. She denies coughing paroxysmal before passing out. She was found lying on the floor on her back. Is complaining of some mild diffuse mid neck pain but has full range of motion. She does not believe that she lost consciousness. She appreciates however that on right lateral gaze she has double vision now. Does have a mild headache. She denies nausea or vomiting. Is having pain in any other parts of her body. Plan she will have CT head. Routine labs to be performed. IV will be D5 normal saline at open as she is clinically volume depleted. No medications will be given at this point time. (Burt Bower) - Re-Assessments/Exams Free Text/Narrative Re-Assessment/Exam: 05/23/19 17:21 CT of the head is completely normal with no intracranial bleeding or mass-effect. There are no skull fractures. There is evidence of chronic ethmoid sinusitis on the right side. Nothing that would account for diplopia. ECG was also normal. Chest x-ray was also within normal limits showing no pneumonia or infiltrates. Chemistry is pending.Hematology reveals a white count that is slightly elevated at 12.03. The auto differential shows 69 % neutrophils. Hemoglobin is 11.2 slightly low with a hematocrit of 36.4. Platelet count is 327,000. CT of the brain was completely within normal limits showing no intracranial bleeding mass-effect or skull fracture. There is some evidence of chronic right side ethmoid sinusitis. (Burt Bower) Departure <Gagan Bright - Last Filed: 05/23/19 17:13> - Departure Time of Disposition: 18:24 Condition: Fair - Discharge Information *PRESCRIPTION DRUG MONITORING PROGRAM REVIEWED*: Not Applicable *COPY OF PRESCRIPTION DRUG MONITORING REPORT IN PATIENT NIDIA: Not Applicable <Burt Bower - Last Filed: 05/23/19 18:29> - Departure Disposition: Home, Self-Care 01 Clinical Impression: Syncope and collapse, Viral upper respiratory tract infection, Bronchitis - Discharge Information Prescriptions: Hydrocodone/Chlorphen P-Stirex [Hydrocodone-Chlorphen ER Susp] 5 ml PO Q12H PRN #60 ml PRN Reason: cough relief Instructions: Upper Respiratory Infection, Adult, [id number], Syncope, Easy- to-Read Referrals: PCP,Unknown [Ordering Only Provider] - Forms: ED Department Discharge Additional Instructions: Evaluation in the emergency room today after syncopal event occurred at home with collapse to the floor. No specific cause of the current illness identified to have caused you to pass out and fall to the floor. No cardiac or heart abnormalities were identified while you were in the ED and monitored. Chest x-ray shows no signs of pneumonia although you have developed a very paroxysmal productive cough. You were found to be volume depleted did receive a liter of IV fluids while in the emergency department to rehydrate you. At this point in time it appears that you have a viral upper respiratory tract infection and normal white count with no signs of a fever while in the department. Seun for fever development at home and use Motrin 600 mg every 6 hours if needed for fever relief. Suggest plenty of fluids such as Gatorade or Powerade particular if you do not feel hungry enough to eat a meal. You were prescribed cough syrup called Tussionex or Penntuss 5 mils every 12 hours as necessary for relief of cough. Suggest using this medication a good hour before you are planning on going to sleep as it takes about an hour to work. Just off of work tomorrow to rest and regain your strength. Follow-up with personal doctor if any further problems occur Sepsis Event Note - Focused Exam Date Exam was Performed: 05/23/19 Time Exam was Performed: 17:13 <Gagan Bright L - Last Filed: 05/23/19 17:13> - Evaluation Sepsis Screening Result: No Definite Risk - Focused Exam Date Exam was Performed: 05/23/19 Time Exam was Performed: 18:23 <Burt Bower L - Last Filed: 05/23/19 18:29> - Focused Exam Vital Signs: Vital Signs Temp Pulse Resp BP Pulse Ox 05/23/19 15:56 36.7 C 69 20 177/118 H 97 - My Orders Last 24 Hours: My Active Orders 05/23/19 16:14 EKG Documentation Completion [RC] STAT 05/23/19 16:15 Dextrose 5%-0.9% NaCl [Dextrose 5%-Normal Saline] 1,000 ml IV ASDIRECTED - Assessment/Plan Last 24 Hours: My Active Orders 05/23/19 16:14 EKG Documentation Completion [RC] STAT 05/23/19 16:15 Dextrose 5%-0.9% NaCl [Dextrose 5%-Normal Saline] 1,000 ml IV ASDIRECTED
--- NOTE | 2019-05-23 16:47 | CT ---
Head CT Technique: Multiple axial sections through the brain were obtained. Intravenous contrast was not utilized. Comparison: No prior head CT study is available. Findings: Ventricles along with basal cisterns and sulci over the convexities appear within normal limits for the patient's age. No abnormal parenchymal densities are seen. No evidence of intracranial hemorrhage. No midline shift or mass-effect is seen. Bone window settings were reviewed which shows moderate mucosal thickening within the ethmoid sinuses. Visualized mastoid sinuses are clear. No acute calvarial abnormality is appreciated. Impression: 1. Mucosal thickening within the ethmoid sinus which is most likely chronic. 2. No acute intracranial abnormality is appreciated. Note: Please correlate if patient's symptoms warrant further evaluation by MRI. Diagnostic code #2 This report was dictated in [place] Standard Time
--- NOTE | 2019-05-23 16:48 | CR ---
Chest: Portable view of the chest was obtained. Comparison: Prior chest x-ray of 08/16/18. Heart is generous in size but accentuated from portable technique. Upper mediastinum is within normal limits. Lungs are clear with no acute parenchymal change. Bony structures are grossly intact. Impression: 1. Nothing acute is seen on portable chest x-ray. Diagnostic code #1 This report was dictated in [place] Standard Time
== END 2019-05-23 18:57 | disposition home or self-care (01) ==
LOC: JD.ED 15:53
DX: R55 Syncope and collapse (principal); J06.9 Acute upper respiratory infection, unspecified; J40 Bronchitis, not specified as acute or chronic; I10 Essential (primary) hypertension; J32.2 Chronic ethmoidal sinusitis; E66.9 Obesity, unspecified; Z68.33 Body mass index [BMI] 33.0-33.9, adult; Z79.899 Other long term (current) drug therapy; Z88.0 Allergy status to penicillin
CPT/HCPCS: 36415; 70450; 71045; 80053; 83735; 85025; 85610; 85730; 86140; 93005; 96360; 99285; J7042; 93010

== ENCOUNTER 2019-06-26 15:13 | Emergency (ER) | payer MEDICAID, OTHER ==
--- NOTE | 2019-06-26 16:51 | CT ---
Head CT Technique: Multiple axial sections through the brain were obtained. Intravenous contrast was not utilized. Comparison: Previous head CT study of 05/23/19. Findings: Ventricles along with basal cisterns and sulci over the convexities are within normal limits for the patient's age. No abnormal parenchymal densities are seen. No evidence of intracranial hemorrhage. No midline shift or mass effect is seen. Bone window settings were reviewed. Visualized mastoid sinuses are clear. Moderate mucosal thickening is noted within the ethmoid sinuses which is stable from previous exam. No acute calvarial abnormality is appreciated. Impression: 1. Mucosal thickening within the ethmoid sinuses which is stable from prior head CT study. 2. No acute intracranial abnormality is appreciated. Diagnostic code #2 Study was dictated in MDT
--- NOTE | 2019-06-26 17:02 | CR ---
Chest: Portable view of the chest was obtained. Comparison: Prior chest x-ray of 05/23/19. Heart size and mediastinum are within normal limits for portable technique. Lungs are clear with no acute parenchymal change. Bony structures are unremarkable. Impression: 1. Nothing acute is seen on portable chest x-ray. Diagnostic code #1 Study was dictated in MDT
--- NOTE | 2019-06-26 17:09 | EDM.PDOC ---
ED HPI GENERAL MEDICAL PROBLEM - General Chief Complaint: Syncope Stated Complaint: [facility] Time Seen by Provider: 06/26/19 15:35 Source of Information: Reports: Patient, EMS, EMS Notes Reviewed History Limitations: Reports: No Limitations - History of Present Illness INITIAL COMMENTS - FREE TEXT/NARRATIVE: Fainting spell Onset: Today Duration: Improving Location: Reports: Head, Chest Quality: Reports: Ache Severity: Moderate Improves with: Reports: None Worsens with: Reports: None Associated Symptoms: Reports: Cough, Fever/Chills, Headaches, Loss of Appetite, Syncope. 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 Patient complaining some headache. Per EMS report she had a temperature 101, concerning for whether this could be coronavirus and they did take precautions. Patient was placed in the negative pressure room #12. Patient denies having had any obvious sore throat runny nose, no smell or taste problems. No abdominal pain, no diarrhea, no burning pain or blood in the urine. Denies . She does have exposure to people at work and her 5 kids at home. They have not been following self social isolation precautions.) Head Pain Score (Numeric/FACES): 5 - Related Data Allergies Allergy/AdvReac Type Severity Reaction Status Date / Time Penicillins AdvReac Nausea and Verified 06/26/19 15:16 Vomiting Home Meds: Home Meds Albuterol [Ventolin HFA] 8 gm INH Q4HR 06/26/19 [History] Past Medical History HEENT History: Reports: Impaired Vision Other HEENT History: wears corrective lenses Cardiovascular History: Reports: Hypertension Respiratory History: Reports: Asthma, Bronchitis, Recurrent Gastrointestinal History: Reports: None Genitourinary History: Reports: None 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: , 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 Musculoskeletal History: Reports: Back Pain, Chronic, Fracture, Other (See Below ) Other Musculoskeletal History: 2004 Neurological History: Reports: None Psychiatric History: Reports: Anxiety, Depression Endocrine/Metabolic History: Reports: Obesity/BMI 30+ Hematologic History: Reports: None Immunologic History: Reports: None Oncologic (Cancer) History: Reports: None Dermatologic History: Reports: None - Infectious Disease History Infectious Disease History: Reports: None - Past Surgical History Head Surgeries/Procedures: Reports: None HEENT Surgical History: Reports: Oral Surgery GI Surgical History: Reports: Cholecystectomy Female Surgical History: Reports: Tubal Ligation Social & Family History - Family History Family Medical History: Noncontributory HEENT: Reports: None Cardiac: Reports: Hypertension, [place], Pacemaker Respiratory: Reports: None GI: Reports: None : Reports: None OBGYN: Reports: None Musculoskeletal: Reports: None Neurological: Reports: CVA, Dementia Psychiatric: Reports: Anxiety, Depression Endocrine/Metabolic: Reports: Diabetes, type II, Hypothyroidism Hematologic: Reports: None Oncologic: Reports: Liver, Metastatic - Tobacco Use Smoking Status *Q: Current Every Day Smoker Years of Tobacco use: 20 Packs/Tins Daily: 1 - Caffeine Use Caffeine Use: Reports: None ED ROS GENERAL - Review of Systems Review Of Systems: See Below Constitutional: Reports: Fever. Denies: Diaphoresis HEENT: Denies: Eye Discharge, Eye Pain, Rhinitis, Throat Pain, Throat Swelling, Vision Change Respiratory: Reports: Cough. Denies: Shortness of Breath, Hemoptysis Cardiovascular: Reports: Blood Pressure Problem, Lightheadedness, Syncope. Denies: Chest Pain, Dyspnea on Exertion, Palpitations Endocrine: Denies: High Glucose GI/Abdominal: Reports: No Symptoms. Denies: Diarrhea, Nausea : Denies: Discharge, Dysuria, Frequency, Hematuria Musculoskeletal: Reports: Muscle Pain. Denies: Neck Pain Skin: Denies: Rash Neurological: Reports: Headache, Syncope. Denies: Numbness, Paresthesia, Trouble Speaking, Difficulty Walking, Weakness, Gait Disturbance Psychiatric: Reports: No Symptoms Hematologic/Lymphatic: Reports: No Symptoms Immunologic: Reports: No Symptoms (Patient has a history of high blood pressure however cannot afford her medications it sounds like she was on metoprolol and lisinopril, blood pressure was elevated on arrival.) - Physical Exam Exam: See Below Exam Limited By: No Limitations General Appearance: Alert, WD/WN, No Apparent Distress Eye Exam: Bilateral Eye: EOMI, PERRL Nose: Normal Inspection Head Exam: Atraumatic, Normocephalic Neck: Normal Inspection, Supple, Non-Tender, Other (Fully cleared from the c- collar) Respiratory/Chest: No Respiratory Distress, Lungs Clear, Normal Breath Sounds, Other (Tenderness to the sternal area of where he had sternal rub) GI/Abdominal: Normal Bowel Sounds, Soft, Non-Tender, No Organomegaly Neuro Exam (Abbreviated): Alert, Oriented, CN II-XII Intact, Normal Cognition, No Motor/Sensory Deficits Back Exam: Normal Inspection Extremities: Normal Inspection, Non-Tender, No Pedal Edema, Normal Capillary Refill Psychiatric: Normal Affect, Normal Mood Skin Exam: Warm, Dry EKG INTERPRETATION EKG Date: 06/26/19 EKG Interpretation Comments: I reviewed her EKG and it shows sinus rhythm rate of 63 MA 165 QRS is 87 QT corrected 474, no acute QT changes, no preexcitation syndrome, no acute findings. Course - Vital Signs Last Recorded V/S: Last Vital Signs Temp 97.6 F 06/26/19 15:17 Pulse 71 06/26/19 15:17 Resp 18 06/26/19 15:17 BP 197/120 H 06/26/19 15:17 Pulse Ox 96 06/26/19 15:17 - Orders/Labs/Meds Orders: Active Orders 24 hr Category Date Time Status Cardiac Monitoring [RC] . DIRECTED Care 06/26/19 15:42 Active EKG Documentation Completion [RC] STAT Care 06/26/19 15:41 Active CORONAVIRUS COVID-19 PCR PHL Stat Lab 06/26/19 16:13 Received UA W/MICROSCOPIC [URIN] Stat Lab 06/26/19 15:41 Ordered Labs: Laboratory Tests 06/26/19 06/26/19 06/26/19 Range/Units 15:35 15:35 15:35 WBC 10.41 H (3.98-10.04) K/mm3 RBC 4.31 (3.98-5.22) M/mm3 Hgb 11.7 (11.2-15.7) gm/dl Hct 37.3 (34.1-44.9) % MCV 86.5 (79.4-94.8) fl MCH 27.1 (25.6-32.2) pg MCHC 31.4 L (32.2-35.5) g/dl RDW Std Deviation 46.0 (36.4-46.3) fL Plt Count 357 (182-369) K/mm3 MPV 9.7 (9.4-12.3) fl Neut % (Auto) 63.7 (34.0-71.1) % Lymph % (Auto) 23.5 (19.3-51.7) % [place] % (Auto) 6.2 (4.7-12.5) % Eos % (Auto) 6.2 H (0.7-5.8) Baso % (Auto) 0.3 (0.1-1.2) % Neut # (Auto) 6.62 H (1.56-6.13) K/mm3 Lymph # (Auto) 2.45 (1.18-3.74) K/mm3 [place] # (Auto) 0.65 H (0.24-0.36) K/mm3 Eos # (Auto) 0.65 H (0.04-0.36) K/mm3 Baso # (Auto) 0.03 (0.01-0.08) K/mm3 Manual Slide Review Normal smear Sodium 139 (136-145) mEq/L Potassium 3.8 (3.5-5.1) mEq/L Chloride 103 (98-107) mEq/L Carbon Dioxide 29 (21-32) mEq/L Anion Gap 10.8 (5-15) BUN 10 (7-18) mg/dL Creatinine 1.0 (0.55-1.02) mg/dL Est Cr Clr Drug Dosing 66.51 mL/min Estimated GFR (MDRD) > 60 (>60) mL/min BUN/Creatinine Ratio 10.0 L (14-18) Glucose 101 (74-106) mg/dL Lactic Acid 0.7 (0.4-2.0) mmol/L Calcium 8.8 (8.5-10.1) mg/dL Total Bilirubin 0.3 (0.2-1.0) mg/dL AST 14 L (15-37) U/L ALT 25 (14-59) U/L Alkaline Phosphatase 100 (46-116) U/L Troponin I < 0.017 (0.00-0.056) ng/mL Total Protein 7.4 (6.4-8.2) g/dl Albumin 3.4 (3.4-5.0) g/dl Globulin 4.0 gm/dL Albumin/Globulin Ratio 0.9 L (1-2) - Re-Assessments/Exams Free Text/Narrative Re-Assessment/Exam: 06/26/19 17:12 I reviewed the prehospital part, was in full PPE on examination the patient. Sounds like more of a fainting spell while at work today, history of asthma and has been coughing. Recheck of her temperature is normal. Work-up and evaluation include a CT head which is unremarkable chest x-ray is normal, EKG is negative, lab evaluation performed, orthostatic vital signs done, did send a coronavirus in case, seems like otherwise low risk. Departure - Departure Time of Disposition: 17:50 Disposition: Home, Self-Care 01 Clinical Impression: Syncope Qualifiers: Syncope type: unspecified Qualified Code(s): R55 - Syncope and collapse Asthma Qualifiers: Asthma severity: mild Asthma persistence: intermittent Asthma complication type : uncomplicated Qualified Code(s): J45.20 - Mild intermittent asthma, uncomplicated Hypertension Qualifiers: Hypertension type: essential hypertension Qualified Code(s): I10 - Essential ( primary) hypertension - Discharge Information Instructions: Hypertension, Adult, [id number], Asthma, Adult, [id number], Syncope, [id number] Referrals: PCP,None [Primary Care Provider] - Forms: ED Department Discharge, ED Return to Work/School Form Additional Instructions: Monitor your blood pressure and record, follow-up with your primary care provider. Will call back to [facility] starting back your lisinopril and with your history of asthma we will hold off on the metoprolol for now. Will need you to self quarantine for the next few days until your coronavirus results come back. Self isolate, off work for at least the next 2 days. Return if recurrent fainting spell, chest pain, shortness of breath, fevers, muscle aches or pains, worse. Sepsis Event Note - Evaluation Sepsis Screening Result: No Definite Risk - Focused Exam Vital Signs: Vital Signs Temp Pulse Resp BP Pulse Ox 06/26/19 15:17 97.6 F 71 18 197/120 H 96 Date Exam was Performed: 06/26/19 Time Exam was Performed: 18:12 - My Orders Last 24 Hours: My Active Orders 06/26/19 15:41 EKG Documentation Completion [RC] STAT UA W/MICROSCOPIC [URIN] Stat 06/26/19 15:42 Cardiac Monitoring [RC] . DIRECTED 06/26/19 16:13 CORONAVIRUS COVID-19 PCR PHL Stat - Assessment/Plan Last 24 Hours: My Active Orders 06/26/19 15:41 EKG Documentation Completion [RC] STAT UA W/MICROSCOPIC [URIN] Stat 06/26/19 15:42 Cardiac Monitoring [RC] . DIRECTED 06/26/19 16:13 CORONAVIRUS COVID-19 PCR PHL Stat
== END 2019-06-26 18:27 | disposition home or self-care (01) ==
LOC: JD.ED 15:13
DX: J45.20 Mild intermittent asthma, uncomplicated (principal); I10 Essential (primary) hypertension; F17.210 Nicotine dependence, cigarettes, uncomplicated; E66.9 Obesity, unspecified; Z68.34 Body mass index [BMI] 34.0-34.9, adult; Z88.0 Allergy status to penicillin; Z20.828 Contact with and (suspected) exposure to other viral communicable diseases
CPT/HCPCS: 36415; 70450; 70450-26; 71045; 71045-26; 80053; 83605; 84484; 85025; 93005; 93010; 99284; 99284-25; U0002

== ENCOUNTER 2019-11-06 18:02 | Emergency (ER) | payer MEDICAID, OTHER ==
--- NOTE | 2019-11-06 20:02 | EDM.PDOC ---
ED HPI GENERAL MEDICAL PROBLEM - General Chief Complaint: General Stated Complaint: [facility] Time Seen by Provider: 11/06/19 18:59 Source of Information: Reports: Patient, EMS, RN Notes Reviewed - History of Present Illness INITIAL COMMENTS - FREE TEXT/NARRATIVE: 38 yr old female had what sounds like syncopal event. She had been sleeping, awake for a short time, blew her nose and passed out. A room mate heard her fall, called EMS. Her room mate reports some slight jerking of her arms but nothing that sounds like true tonic clonic seizure activity. She dose have hx of prior syncopal events, last event about 5 months ago. She has had mild sore throat for the last 2 days, increased nasal congestion yesterday and today, chronic cough, no fever or chills. She works at [email or web address], they do not wear masks. No chest pain or difficulty breathing at time of exam. Headache Pain Score (Numeric/FACES): 8 - Related Data Allergies Allergy/AdvReac Type Severity Reaction Status Date / Time Penicillins AdvReac Nausea and Verified 11/06/19 18:15 Vomiting Home Meds: Home Meds Cariprazine HCl [Vraylar] 1.5 mg PO DAILY 11/06/19 [History] OLANZapine [Olanzapine] 5 mg PO DAILY 11/06/19 [History] hydroCHLOROthiazide [Hydrochlorothiazide] 12.5 mg PO DAILY 11/06/19 [History] lisinopriL [Lisinopril] 40 mg PO DAILY 11/06/19 [History] Past Medical History HEENT History: Reports: Impaired Vision Other HEENT History: wears corrective lenses Cardiovascular History: Reports: Hypertension Respiratory History: Reports: Asthma, Bronchitis, Recurrent Gastrointestinal History: Reports: None Genitourinary History: Reports: None 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: , 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 Musculoskeletal History: Reports: Back Pain, Chronic, Fracture, Other (See Below) Other Musculoskeletal History: Wrist 2004 Neurological History: Reports: None Psychiatric History: Reports: Anxiety, Depression Endocrine/Metabolic History: Reports: Obesity/BMI 30+ Hematologic History: Reports: None Immunologic History: Reports: None Oncologic (Cancer) History: Reports: None Dermatologic History: Reports: None - Infectious Disease History Infectious Disease History: Reports: None - Past Surgical History Head Surgeries/Procedures: Reports: None HEENT Surgical History: Reports: Oral Surgery GI Surgical History: Reports: Cholecystectomy Female Surgical History: Reports: Tubal Ligation Social & Family History - Family History Family Medical History: Noncontributory HEENT: Reports: None Cardiac: Reports: Hypertension, [place], Pacemaker Respiratory: Reports: None GI: Reports: None : Reports: None OBGYN: Reports: None Musculoskeletal: Reports: None Neurological: Reports: CVA, Dementia Psychiatric: Reports: Anxiety, Depression Endocrine/Metabolic: Reports: Diabetes, type II, Hypothyroidism Hematologic: Reports: None Oncologic: Reports: Liver, Metastatic - Tobacco Use Smoking Status *Q: Current Every Day Smoker Years of Tobacco use: 20 Packs/Tins Daily: 0.1 - Caffeine Use Caffeine Use: Reports: None ED ROS GENERAL - Review of Systems Review Of Systems: See Below Constitutional: Denies: Fever, Chills, Diaphoresis HEENT: Reports: Rhinitis, Throat Pain Respiratory: Reports: Cough. Denies: Shortness of Breath, Sputum Cardiovascular: Denies: Chest Pain GI/Abdominal: Denies: Abdominal Pain, Diarrhea, Vomiting Musculoskeletal: Denies: Neck Pain, Shoulder Pain, Back Pain, Joint Pain Skin: Reports: No Symptoms Neurological: Reports: Headache (slight posterior). Denies: Numbness, Tingling, Trouble Speaking, Weakness ED EXAM, GENERAL - Physical Exam Exam: See Below General Appearance: Alert, No Apparent Distress Eye Exam: Bilateral Eye: PERRL Ears: Normal External Exam Nose: Normal Inspection Head: Atraumatic. No: Facial Swelling Neck: Supple, Non-Tender Respiratory/Chest: No Respiratory Distress, Lungs Clear, Normal Breath Sounds Cardiovascular: Regular Rate, Rhythm GI/Abdominal: Soft, Non-Tender Neurological: Alert, Oriented, No Motor/Sensory Deficits, Other (finger to nose testing nl) Skin Exam: Warm, Dry, Normal Color, No Rash EKG INTERPRETATION EKG Date: 11/06/19 Rhythm: Other (NSR, a few pVC's) Rate (Beats/Min): 80 [place]: Normal P-Wave: Present QRS: Normal ST-T: Normal Course - Vital Signs Last Recorded V/S: Last Vital Signs Temp 97.9 F 11/06/19 18:10 Pulse 75 11/06/19 20:15 Resp 16 11/06/19 20:15 BP 158/75 H 11/06/19 20:15 Pulse Ox 98 11/06/19 20:15 - Orders/Labs/Meds Orders: Active Orders 24 hr Category Date Time Status CORONAVIRUS COVID-19 PCR PHL Stat Lab 11/06/19 19:40 Ordered Labs: Laboratory Tests 11/06/19 11/06/19 Range/Units 18:35 18:35 WBC 8.04 (3.98-10.04) K/mm3 RBC 4.46 (3.98-5.22) M/mm3 Hgb 12.0 (11.2-15.7) gm/dl Hct 37.9 (34.1-44.9) % MCV 85.0 (79.4-94.8) fl MCH 26.9 (25.6-32.2) pg MCHC 31.7 L (32.2-35.5) g/dl RDW Std Deviation 49.5 H (36.4-46.3) fL Plt Count 318 (182-369) K/mm3 MPV 9.5 (9.4-12.3) fl Neut % (Auto) 59.4 (34.0-71.1) % Lymph % (Auto) 24.0 (19.3-51.7) % [place] % (Auto) 9.3 (4.7-12.5) % Eos % (Auto) 6.6 H (0.7-5.8) Baso % (Auto) 0.5 (0.1-1.2) % Neut # (Auto) 4.77 (1.56-6.13) K/mm3 Lymph # (Auto) 1.93 (1.18-3.74) K/mm3 [place] # (Auto) 0.75 H (0.24-0.36) K/mm3 Eos # (Auto) 0.53 H (0.04-0.36) K/mm3 Baso # (Auto) 0.04 (0.01-0.08) K/mm3 Sodium 140 (136-145) mEq/L Potassium 3.4 L (3.5-5.1) mEq/L Chloride 105 (98-107) mEq/L Carbon Dioxide 26 (21-32) mEq/L Anion Gap 12.4 (5-15) BUN 5 L (7-18) mg/dL Creatinine 1.0 (0.55-1.02) mg/dL Est Cr Clr Drug Dosing 66.51 mL/min Estimated GFR (MDRD) > 60 (>60) mL/min BUN/Creatinine Ratio 5.0 L (14-18) Glucose 114 H (74-106) mg/dL Calcium 8.0 L (8.5-10.1) mg/dL Total Bilirubin 0.2 (0.2-1.0) mg/dL AST 14 L (15-37) U/L ALT 18 (14-59) U/L Alkaline Phosphatase 83 (46-116) U/L Troponin I < 0.017 (0.00-0.056) ng/mL Total Protein 7.3 (6.4-8.2) g/dl Albumin 3.1 L (3.4-5.0) g/dl Globulin 4.2 gm/dL Albumin/Globulin Ratio 0.7 L (1-2) - Re-Assessments/Exams Free Text/Narrative Re-Assessment/Exam: 11/06/19 20:08 labs are nl, resting comfortably, feels up to going home. Departure - Departure Time of Disposition: 20:00 Disposition: Home, Self-Care 01 Condition: Fair Clinical Impression: Syncope Qualifiers: Syncope type: unspecified Qualified Code(s): R55 - Syncope and collapse - Discharge Information Instructions: Syncope, [id number] Referrals: Yvon Leal PA-C [Primary Care Provider] - Forms: ED Department Discharge, ED Return to Work/School Form Additional Instructions: Rest, continue to drink plenty of water. A rebollar screen has been collected. Self isolated until we notify you of results which should be available for 2 to 3 days. Follow up with your medical provider as needed. Return to ED as needed if symptoms worsening in any way. Sepsis Event Note (ED) - Evaluation Sepsis Screening Result: No Definite Risk - Focused Exam Vital Signs: Vital Signs Temp Pulse Resp BP Pulse Ox 11/06/19 20:15 75 16 158/75 H 98 11/06/19 18:10 97.9 F 70 18 180/110 H 94 L - My Orders Last 24 Hours: My Active Orders 11/06/19 19:40 CORONAVIRUS COVID-19 PCR PHL Stat - Assessment/Plan Last 24 Hours: My Active Orders 11/06/19 19:40 CORONAVIRUS COVID-19 PCR PHL Stat
== END 2019-11-06 20:15 | disposition home or self-care (01) ==
LOC: JD.ED 18:02
DX: R55 Syncope and collapse (principal); I10 Essential (primary) hypertension; J45.909 Unspecified asthma, uncomplicated; E66.9 Obesity, unspecified; F17.210 Nicotine dependence, cigarettes, uncomplicated; Z88.0 Allergy status to penicillin; Z79.899 Other long term (current) drug therapy; Z20.828 Contact with and (suspected) exposure to other viral communicable diseases; Z68.36 Body mass index [BMI] 36.0-36.9, adult
CPT/HCPCS: 36415; 80053; 84484; 85025; 93005; 93010; 99282; 99284-25; U0002

== ENCOUNTER 2019-11-08 21:27 | Emergency (ER) | payer MEDICAID ==
--- NOTE | 2019-11-08 22:09 | EDM.PDOC ---
ED HPI GENERAL MEDICAL PROBLEM - General Chief Complaint: Respiratory Problem Stated Complaint: sob chest pressure dizzy cough Time Seen by Provider: 11/08/19 22:09 Source of Information: Reports: Patient History Limitations: Reports: No Limitations - History of Present Illness INITIAL COMMENTS - FREE TEXT/NARRATIVE: 38-year-old female presents to the ED with gradually worsening asthma symptoms i.e. wheezing, dyspnea and productive cough over the last 5 days. She has been assessed for COVID-19 on the but has not yet heard of the results. She feels warm but clinically has no fever. She denies any chills. Has a poor appetite. Is bringing up minimal quantities of sputum although the cough sounds quite wet and productive. Patient has been needing to use her albuterol inhaler much more frequently than normal team and tonight she could not get a full deep breath and could not lie flat. She has been on Advair Diskus inhaler for about 2 months. Onset: Gradual Onset Date: 11/03/19 Duration: Day(s):, Getting Worse Location: Reports: Chest (Increased shortness of breath and audible wheezing. Productive cough. Feels warm but clinically has no fever at this time. Poor appetite. Would screen was done on the and sent to public health department she has not yet received the results.) Quality: Reports: Other (Shortness of breath and audible wheezing with productive cough) Severity: Moderate Improves with: Reports: None (Getting any relief with albuterol inhaler.) Worsens with: Reports: Movement (Is with movement) Context: Reports: Other (Spontaneous occurrence.). Denies: Activity, Exercise, Lifting, Sick Contact, Trauma Associated Symptoms: Reports: Chest Pain, Cough, cough w sputum (Coughing so much. Very rare sputum production.), Fever/Chills, Loss of Appetite, Malaise, Shortness of Breath, Weakness. Denies: Confusion, Diaphoresis ( Does not look at the color.), Headaches (Feels febrile but no fever documented on exam.), Nausea/Vomiting, Rash, Seizure, Syncope Treatments ON SITE NURSE: Reports: Other (see below) (Albuterol metered-dose inhaler.) Chest Pain Score (Numeric/FACES): 2 - Related Data Allergies Allergy/AdvReac Type Severity Reaction Status Date / Time Penicillins AdvReac Nausea and Verified 11/08/19 21:56 Vomiting Home Meds: Home Meds Cariprazine HCl [Vraylar] 1.5 mg PO DAILY 11/06/19 [History] OLANZapine [Olanzapine] 5 mg PO DAILY 11/06/19 [History] hydroCHLOROthiazide [Hydrochlorothiazide] 12.5 mg PO DAILY 11/06/19 [History] lisinopriL [Lisinopril] 40 mg PO DAILY 11/06/19 [History] Albuterol Sulfate 2.5 mg IH Q3H PRN #4 ml 11/08/19 [Rx] Albuterol Sulfate 2.5 mg IH Q3H PRN #60 ampule 11/08/19 [Rx] Albuterol [Ventolin HFA] 11/08/19 [History] Azithromycin [Zithromax] 250 mg PO DAILY #6 tablet 11/08/19 [Rx] Fluticasone Propion/Salmeterol [Advair 250-50 Diskus] 11/08/19 [History] predniSONE [Prednisone] 20 mg PO ASDIRECTED #18 tablet 11/08/19 [Rx] Past Medical History HEENT History: Reports: Allergic Rhinitis, Impaired Vision Other HEENT History: wears corrective lenses Cardiovascular History: Reports: Hypertension Respiratory History: Reports: Asthma, Bronchitis, Recurrent Gastrointestinal History: Reports: None Genitourinary History: Reports: None 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: , 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 Musculoskeletal History: Reports: Back Pain, Chronic, Fracture, Other (See Below) Other Musculoskeletal History: 2004 Neurological History: Reports: None Psychiatric History: Reports: Anxiety, Depression Endocrine/Metabolic History: Reports: Obesity/BMI 30+ Hematologic History: Reports: None Immunologic History: Reports: None Oncologic (Cancer) History: Reports: None Dermatologic History: Reports: None - Infectious Disease History Infectious Disease History: Reports: None - Past Surgical History Head Surgeries/Procedures: Reports: None HEENT Surgical History: Reports: Oral Surgery GI Surgical History: Reports: Cholecystectomy Female Surgical History: Reports: Tubal Ligation Social & Family History - Family History Family Medical History: Noncontributory HEENT: Reports: None Cardiac: Reports: Hypertension, [place], Pacemaker Respiratory: Reports: None GI: Reports: None : Reports: None OBGYN: Reports: None Musculoskeletal: Reports: None Neurological: Reports: CVA, Dementia Psychiatric: Reports: Anxiety, Depression Endocrine/Metabolic: Reports: Diabetes, type II, Hypothyroidism Hematologic: Reports: None Oncologic: Reports: Liver, Metastatic - Tobacco Use Smoking Status *Q: Current Every Day Smoker Years of Tobacco use: 21 Packs/Tins Daily: 1 - Caffeine Use Caffeine Use: Reports: Coffee - Recreational Drug Use Recreational Drug Use: No - Living Situation & Occupation Living situation: Reports: Single Occupation: Employed ED ROS GENERAL - Review of Systems Review Of Systems: See Below Constitutional: Reports: Fever, Malaise, Weakness, Fatigue, Decreased Appetite. Denies: Chills, Weight Loss HEENT: Reports: No Symptoms Respiratory: Reports: Shortness of Breath, Wheezing, Cough, Sputum. Denies: Pleuritic Chest Pain, Hemoptysis, Other Cardiovascular: Reports: Chest Pain, Blood Pressure Problem (Chest pressure discomfort and coughing so much.), Dyspnea on Exertion, Orthopnea ( Chronic hypertension). Denies: Claudication, Edema, Lightheadedness Endocrine: Reports: Fatigue GI/Abdominal: Reports: Decreased Appetite. Denies: Diarrhea, Nausea, Vomiting : Reports: Frequency Musculoskeletal: Reports: Back Pain (Chronic back pain) Skin: Reports: No Symptoms Neurological: Reports: No Symptoms Psychiatric: Reports: Anxiety, Depression, Mood Lability, Other Hematologic/Lymphatic: Reports: No Symptoms (Bipolar affective disorder) Immunologic: Reports: No Symptoms ED EXAM, GENERAL - Physical Exam Exam: See Below Exam Limited By: No Limitations General Appearance: Alert, WD/WN, Moderate Distress, Other (Temperature is 36.2 heart rate was 90 in sinus respiratory to 16 with sats reported at 90% on room air. BP elevated 178/96.) Eye Exam: Bilateral Eye: Normal Inspection, PERRL Ears: Normal TMs Throat/Mouth: Normal Inspection, Normal Lips, Normal Teeth, Normal Oropharynx Head: Atraumatic, Normocephalic Neck: Normal Inspection, Supple, Non-Tender, Full Range of Motion. No: Carotid Bruit, Lymphadenopathy (L), Lymphadenopathy (R), Thyromegaly Respiratory/Chest: Respiratory Distress, Decreased Breath Sounds (In all lobes of lung koenig.), Rhonchi (Productive sounding cough with rhonchi both anterior upper lobes.), Wheezing. No: Lungs Clear (Low O2 sats of 90/min.), Normal Breath Sounds, Crackles ( Really decreased air entry to the left lung base posteriorly.), Rales, Stridor, Pleural Rub Cardiovascular: Normal Peripheral Pulses, Regular Rate, Rhythm, No Edema, No Gallop, No Murmur, No Rub Peripheral Pulses: 2+: Posterior Tibial (L), Posterior Tibial (R), Dorsalis Pedis (L), Dorsalis Pedis (R), 3+: Carotid (L), Carotid (R) GI/Abdominal: Normal Bowel Sounds, Soft, Non-Tender, No Organomegaly, No Abnormal Bruit, No Mass, Pelvis Stable Back Exam: Normal Inspection, Decreased Range of Motion, Vertebral Tenderness. No: CVA Tenderness (L), CVA Tenderness (R) Extremities: Normal Inspection (Bar spine), Normal Range of Motion, Non-Tender, No Pedal Edema Neurological: Alert, Oriented, CN II-XII Intact, Normal Cognition Psychiatric: Normal Affect, Normal Mood, Other Skin Exam: Warm (She is working hard to breathe.), Dry, Intact, Normal Color, No Rash Course - Vital Signs Last Recorded V/S: Last Vital Signs Temp 36.2 C 11/08/19 21:53 Pulse 90 11/08/19 21:53 Resp 16 11/08/19 21:53 BP 178/96 H 11/08/19 21:53 Pulse Ox 95 11/08/19 22:25 - Orders/Labs/Meds Orders: Active Orders 24 hr Category Date Time Status RT Aerosol Therapy [RC] ASDIRECTED Care 11/08/19 22:15 Active RT Aerosol Therapy [RC] ASDIRECTED Care 11/08/19 23:20 Ordered Chest 1V Frontal [CR] Stat Exams 11/08/19 22:15 Taken Albuterol/Ipratropium [DuoNeb 3.0-0.5 MG/3 ML] Med 11/08/19 23:19 Once 3 ml NEB ONETIME ONE predniSONE Med 11/08/19 23:20 Once 30 mg PO ONETIME ONE Meds: Medications Discontinued Medications Generic Name Dose Route Start Last Admin Trade Name Freq PRN Reason Stop Dose Admin Albuterol/Ipratropium 3 ml 11/08/19 22:15 11/08/19 22:24 Duoneb 3.0-0.5 Mg/3 Ml NEB 11/08/19 22:16 3 ml ONETIME ONE Administration - Radiology Interpretation Free Text/Narrative:: 38-year-old female Thaddeus to the ED with gradually worsening symptoms of asthma with shortness of breath audible wheezing productive cough and subjective fever. On examination she is working hard to breathe. O2 sats are reportedly 90% on room air. She is not moving much air at all to the left lung base. Cough sounds productive. She is not bringing up much sputum however. She is afebrile at the time of my exam. Not using accessory muscles of respiration. She has been screened for COVID 19 on the and should receive her results tomorrow. Plan DuoNeb at this time. 1 view chest x-ray to rule out pneumonia. - Re-Assessments/Exams Free Text/Narrative Re-Assessment/Exam: 11/08/19 23:12 chest x-ray reveals no signs of pneumonia. Both lung koenig are clear. Normal cardiac silhouette. There is a notation in the chart her COVID- 19 test did come back and it is negative. 11/08/19 23:20 reexamination patient is moving air much better to the left lower lung field but there is still diffuse wheezing throughout posterior lung field and slightly in the upper anterior chest. O2 sats of improved to 97% on room air. Going to repeat the DuoNeb and start her on steroids giving her 30 mg of prednisone at this time. The plan will be to send her home on steroids prednisone 20 mg twice daily for 6 days and then once a day in the morning for another 6 days. Also will cover with antibiotics since she has a very congested sounding cough. Placed on Zithromax 250 mg once daily for 6 days. Also will send her home with albuterol nebs as she has a nebulizer machine at home. Departure - Departure Time of Disposition: 23:26 Disposition: Home, Self-Care 01 Condition: Fair Clinical Impression: Acute exacerbation of moderate persistent extrinsic asthma Upper respiratory tract infection Qualifiers: Pharyngitis/tonsillitis etiology: unspecified etiology - Discharge Information *PRESCRIPTION DRUG MONITORING PROGRAM REVIEWED*: Not Applicable *COPY OF PRESCRIPTION DRUG MONITORING REPORT IN PATIENT NIDIA: Not Applicable Prescriptions: Albuterol Sulfate 2.5 mg IH Q3H PRN #4 ml PRN Reason: Asthma Albuterol Sulfate 2.5 mg IH Q3H PRN #60 ampule PRN Reason: Asthma predniSONE [Prednisone] 20 mg PO ASDIRECTED #18 tablet Azithromycin [Zithromax] 250 mg PO DAILY #6 tablet Instructions: Asthma, Adult, Acute Bronchitis, Adult, [id number] Referrals: PCP,None [Primary Care Provider] - Forms: ED Department Discharge, ED Return to Work/School Form Additional Instructions: Evaluation in the emergency room tonight in regards to acute exacerbation of asthma. Marked wheezing appreciated throughout both lung koenig with very poor air entry into the lower left lung field. Harsh productive sounding cough appreciated. COVID 19 test done on the kit did come back tonight as n egative. Chest x-ray was negative for pneumonia. Diagnosis is acute bronchitis with exacerbation of asthma. You were treated with DuoNeb nebulizer x2 in the ED to improve airflow. You will be sent home with albuterol Nebules to be used with your home nebulizer machine 1 Nebules every 2-3 hours as needed for shortness of breath and/or wheezing. You are started on prednisone in the ED 30 mg were given. He will need to take 20 mg twice daily for 6 days used with breakfast and supper and then 1 tab in the morning only for another 6 days to clear up asthma symptoms. Continue your Advair Diskus inhaler as before. He will also be started on antibiotic Zithromax initial dose 500 mg was given in the ED. You will need to take to 50 mg once daily at bedtime for another 6 days starting tomorrow. Note given to excuse her from the workplace for the next 2 days until asthma symptoms improve. Follow-up with personal care physician if not markedly improved in 48 to 72 hours time. Sepsis Event Note (ED) - Evaluation Sepsis Screening Result: No Definite Risk - Focused Exam Vital Signs: Vital Signs Temp Pulse Resp BP Pulse Ox Pulse Ox 11/08/19 22:25 95 11/08/19 21:53 36.2 C 90 16 178/96 H 90 L - My Orders Last 24 Hours: My Active Orders 11/08/19 22:15 RT Aerosol Therapy [RC] ASDIRECTED Chest 1V Frontal [CR] Stat 11/08/19 23:19 Albuterol/Ipratropium [DuoNeb 3.0-0.5 MG/3 ML] 3 ml NEB ONETIME ONE 11/08/19 23:20 RT Aerosol Therapy [RC] ASDIRECTED predniSONE 30 mg PO ONETIME ONE - Assessment/Plan Last 24 Hours: My Active Orders 11/08/19 22:15 RT Aerosol Therapy [RC] ASDIRECTED Chest 1V Frontal [CR] Stat 11/08/19 23:19 Albuterol/Ipratropium [DuoNeb 3.0-0.5 MG/3 ML] 3 ml NEB ONETIME ONE 11/08/19 23:20 RT Aerosol Therapy [RC] ASDIRECTED predniSONE 30 mg PO ONETIME ONE
[2019-11-08] MEDS ORDERED: Albuterol/Ipratropium 3.0-0.5 MG/3 ML Neb Soln NEB ONE ×2 (22:15→23:19)
[2019-11-08] MEDS ORDERED: predniSONE 20 MG Tab PO ONE (23:20)
[2019-11-08] MEDS ORDERED: Azithromycin 250 MG Tab PO ONE (23:21)
--- NOTE | 2019-11-09 06:56 | CR ---
Chest: Frontal view of the chest was obtained. Comparison: Prior chest x-ray of 06/26/19 and 05/23/19. Heart size and mediastinum felt to be stable from previous study. Lungs show no acute parenchymal change. Bony structures are grossly intact. Impression: 1. Nothing acute is seen on frontal chest x-ray. Diagnostic code #1 This report was dictated in MDT
== END 2019-11-08 23:47 | disposition home or self-care (01) ==
LOC: JD.ED 21:27
DX: J45.41 Moderate persistent asthma with (acute) exacerbation (principal); E66.9 Obesity, unspecified; J06.9 Acute upper respiratory infection, unspecified; Z68.36 Body mass index [BMI] 36.0-36.9, adult; F17.210 Nicotine dependence, cigarettes, uncomplicated; Z88.0 Allergy status to penicillin; Z79.899 Other long term (current) drug therapy
CPT/HCPCS: 71045; 94640; 99285; A9270; J7512; 99283; J7620-GY

== ENCOUNTER 2020-04-18 07:36 | Emergency (ER) | payer MEDICAID ==
[2020-04-18] MEDS ORDERED: Sodium Chloride 0.9% 10 ML Syringe FLUSH PRN (07:56)
[2020-04-18] MEDS ORDERED: Ondansetron 4 MG/2 ML SDV IVPUSH ONE (07:57)
[2020-04-18] MEDS ORDERED: Metoprolol Succinate 50 MG Tab.ER PO ONE (07:57)
--- NOTE | 2020-04-18 09:14 | EDM.PDOC ---
ED HPI GENERAL MEDICAL PROBLEM - General Chief Complaint: Syncope Stated Complaint: [facility] Time Seen by Provider: 04/18/20 07:41 Source of Information: Reports: Patient, EMS History Limitations: Reports: No Limitations - History of Present Illness INITIAL COMMENTS - FREE TEXT/NARRATIVE: The patient presents by [facility] for syncope. She woke up this miran g and said she had nausea. She drank some Mountain Dew and that did not help. She then passed out. This is the 4th time she has passed out in the past couple years. She has been worked up before but no real reason has been found. She did say her heart beats fast at times but today she did not feel like her heart was beating fast. She was not out that long. She has a very mild headache. She has no neck pain, chest pain, shortness of breath, cough, fever, chills, abdominal pain, vomiting or dysuria. Onset: Sudden Duration: Minutes: Location: Reports: Head Quality: Reports: Ache Severity: Mild Improves with: Reports: None Worsens with: Reports: None Associated Symptoms: Reports: Headaches, Nausea/Vomiting. Denies: Chest Pain, Cough, Fever/Chills, Shortness of Breath Left Arm Pain Score (Numeric/FACES): 6 - Related Data Allergies Allergy/AdvReac Type Severity Reaction Status Date / Time Penicillins AdvReac Nausea and Verified 04/18/20 07:41 Vomiting Home Meds: Home Meds . 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 Musculoskeletal History: Reports: Back Pain, Chronic, Fracture, Other (See Below) Other Musculoskeletal History: Wrist 2004 Neurological History: Reports: None Psychiatric History: Reports: Anxiety, Depression Endocrine/Metabolic History: Reports: Obesity/BMI 30+ Hematologic History: Reports: None Immunologic History: Reports: None Oncologic (Cancer) History: Reports: None Dermatologic History: Reports: None - Infectious Disease History Infectious Disease History: Reports: None - Past Surgical History HEENT Surgical History: Reports: Oral Surgery GI Surgical History: Reports: Cholecystectomy Female Surgical History: Reports: Tubal Ligation Social & Family History - Family History Family Medical History: No Pertinent Family History HEENT: Reports: None Cardiac: Reports: Hypertension, [place], Pacemaker Respiratory: Reports: None GI: Reports: None : Reports: None OBGYN: Reports: None Musculoskeletal: Reports: None Neurological: Reports: CVA, Dementia Psychiatric: Reports: Anxiety, Depression Endocrine/Metabolic: Reports: Diabetes, type II, Hypothyroidism Hematologic: Reports: None Oncologic: Reports: Liver, Metastatic - Tobacco Use Tobacco Use Status *Q: Current Every Day Tobacco User Years of Tobacco use: 12 Packs/Tins Daily: 0.3 - Caffeine Use Caffeine Use: Reports: Coffee - Recreational Drug Use Recreational Drug Use: No - Living Situation & Occupation Living situation: Reports: Single Occupation: Employed ED ROS GENERAL - Review of Systems Review Of Systems: See Below Constitutional: Reports: No Symptoms HEENT: Reports: No Symptoms Respiratory: Reports: No Symptoms Cardiovascular: Reports: Syncope. Denies: Chest Pain Endocrine: Reports: No Symptoms GI/Abdominal: Reports: Nausea. Denies: Abdominal Pain, Vomiting : Reports: No Symptoms Musculoskeletal: Reports: No Symptoms Skin: Reports: No Symptoms - Physical Exam Exam: See Below Exam Limited By: No Limitations General Appearance: Alert, No Apparent Distress Ears: Normal External Exam Nose: Normal Inspection Head Exam: Atraumatic, Normocephalic Neck: Normal Inspection, Supple, Non-Tender Respiratory/Chest: No Respiratory Distress, Lungs Clear, Normal Breath Sounds Cardiovascular: Regular Rate, Rhythm, No Edema, No Murmur GI/Abdominal: Soft, Non-Tender, No Organomegaly, No Mass Neuro Exam (Abbreviated): Alert, Oriented, No Motor/Sensory Deficits #1 Interpretation EKG Date: 04/18/20 Time: 08:22 Rhythm: NSR Rate (Beats/Min): 69 [place]: Normal P-Wave: Present QRS: Normal ST-T: Normal QT: Normal Course - Vital Signs Last Recorded V/S: Last Vital Signs Temp 97.0 F 04/18/20 07:41 Pulse 73 04/18/20 08:15 Resp 21 H 04/18/20 07:41 BP 204/98 H 04/18/20 08:15 Pulse Ox 95 04/18/20 07:41 - Orders/Labs/Meds Orders: Active Orders 24 hr Category Date Time Status Cardiac Monitoring [RC] . DIRECTED Care 04/18/20 07:56 Active EKG Documentation Completion [RC] STAT Care 04/18/20 07:56 Active Peripheral IV Care [RC] . DIRECTED Care 04/18/20 07:56 Active Sodium Chloride 0.9% [Saline Flush] Med 04/18/20 07:56 Active 10 ml FLUSH ASDIRECTED PRN Peripheral IV Insertion Adult [OM.PC] Stat Oth 04/18/20 07:56 Ordered Medication Orders Sodium Chloride (Saline Flush) 10 ml FLUSH ASDIRECTED PRN PRN Reason: Keep Vein Open Last Admin: 04/18/20 08:16 Dose: 10 ml Documented by: [id number] Labs: Laboratory Tests 04/18/20 04/18/20 04/18/20 Range/Units 08:32 08:32 08:32 WBC 10.02 (3.98-10.04) K/mm3 RBC 4.23 (3.98-5.22) M/mm3 Hgb 11.8 (11.2-15.7) gm/dl Hct 37.8 (34.1-44.9) % MCV 89.4 D (79.4-94.8) fl MCH 27.9 (25.6-32.2) pg MCHC 31.2 L (32.2-35.5) g/dl RDW Std Deviation 47.0 H (36.4-46.3) fL Plt Count 299 (182-369) K/mm3 MPV 9.6 (9.4-12.3) fl Neut % (Auto) 61.1 (34.0-71.1) % Lymph % (Auto) 26.3 (19.3-51.7) % [place] % (Auto) 6.8 (4.7-12.5) % Eos % (Auto) 5.3 (0.7-5.8) Baso % (Auto) 0.3 (0.1-1.2) % Neut # (Auto) 6.12 (1.56-6.13) K/mm3 Lymph # (Auto) 2.64 (1.18-3.74) K/mm3 [place] # (Auto) 0.68 H (0.24-0.36) K/mm3 Eos # (Auto) 0.53 H (0.04-0.36) K/mm3 Baso # (Auto) 0.03 (0.01-0.08) K/mm3 Sodium 144 (136-145) mEq/L Potassium 4.0 (3.5-5.1) mEq/L Chloride 108 H (98-107) mEq/L Carbon Dioxide 25 (21-32) mEq/L Anion Gap 15.0 (5-15) BUN 10 (7-18) mg/dL Creatinine 0.8 (0.55-1.02) mg/dL Est Cr Clr Drug Dosing 82.33 mL/min Estimated GFR (MDRD) > 60 (>60) mL/min BUN/Creatinine Ratio 12.5 L (14-18) Glucose 95 (74-106) mg/dL Calcium 8.4 L (8.5-10.1) mg/dL Magnesium 2.0 (1.8-2.4) mg/dl Total Bilirubin 0.2 (0.2-1.0) mg/dL AST 17 (15-37) U/L ALT 21 (14-59) U/L Alkaline Phosphatase 82 (46-116) U/L Troponin I < 0.017 (0.00-0.056) ng/mL Total Protein 7.1 (6.4-8.2) g/dl Albumin 3.2 L (3.4-5.0) g/dl Globulin 3.9 gm/dL Albumin/Globulin Ratio 0.8 L (1-2) HCG, Qual Negative (NEGATIVE) Meds: Medications Generic Name Dose Route Start Last Admin Trade Name Freq PRN Reason Stop Dose Admin Sodium Chloride 10 ml 04/18/20 07:56 04/18/20 08:16 Saline Flush FLUSH 10 ml ASDIRECTED PRN Administration Keep Vein Open Discontinued Medications Generic Name Dose Route Start Last Admin Trade Name Freq PRN Reason Stop Dose Admin Metoprolol Succinate 50 mg 04/18/20 07:57 04/18/20 08:15 Toprol Xl PO 04/18/20 07:58 50 mg ONETIME ONE Administration Ondansetron HCl 4 mg 04/18/20 07:57 04/18/20 08:15 Zofran IVPUSH 04/18/20 07:58 4 mg ONETIME ONE Administration - Re-Assessments/Exams Free Text/Narrative Re-Assessment/Exam: 04/18/20 09:14 I ordered an IV saline lock, labs, EKG, zofran 4mg IV and metoprolol. 04/18/20 09:48 Her EKG shows a NSR with no acute changes. Her CBC and CMP look good. Her troponin is negative. Her HCG is negative. Her blood pressure is better. I will need to get her back on her blood pressure medications. 04/18/20 09:59 I am also going to do a holter monitor. Departure - Departure Time of Disposition: 10:00 Disposition: Home, Self-Care 01 Condition: Good Clinical Impression: Syncope Qualifiers: Syncope type: unspecified Qualified Code(s): R55 - Syncope and collapse - Discharge Information *PRESCRIPTION DRUG MONITORING PROGRAM REVIEWED*: Not Applicable *COPY OF PRESCRIPTION DRUG MONITORING REPORT IN PATIENT NIDIA: Not Applicable Referrals: Yvon Leal PA-C [Primary Care Provider] - 1 Week Forms: ED Department Discharge, ED Return to Work/School Form Additional Instructions: Drink plenty of fluids. Take your blood pressure medications. Wear the holter monitor for 48 hours. Follow up with Yvon Leal within a week. Please return if you are worse. Sepsis Event Note (ED) - Evaluation Sepsis Screening Result: No Definite Risk - Focused Exam Vital Signs: Vital Signs Temp Pulse Pulse Resp BP BP Pulse Ox 04/18/20 08:15 73 204/98 H 04/18/20 07:41 97.0 F 71 21 H 204/98 H 95 - My Orders Last 24 Hours: My Active Orders 04/18/20 07:56 Cardiac Monitoring [RC] . DIRECTED EKG Documentation Completion [RC] STAT Peripheral IV Care [RC] . DIRECTED Sodium Chloride 0.9% [Saline Flush] 10 ml FLUSH ASDIRECTED PRN Peripheral IV Insertion Adult [OM.PC] Stat - Assessment/Plan Last 24 Hours: My Active Orders 04/18/20 07:56 Cardiac Monitoring [RC] . DIRECTED EKG Documentation Completion [RC] STAT Peripheral IV Care [RC] . DIRECTED Sodium Chloride 0.9% [Saline Flush] 10 ml FLUSH ASDIRECTED PRN Peripheral IV Insertion Adult [OM.PC] Stat
== END 2020-04-18 10:20 | disposition home or self-care (01) ==
LOC: SUPCPDRO 07:36 → JD.ED 07:36
DX: R55 Syncope and collapse (principal); J45.909 Unspecified asthma, uncomplicated; I10 Essential (primary) hypertension; E66.9 Obesity, unspecified; Z68.34 Body mass index [BMI] 34.0-34.9, adult; Z88.0 Allergy status to penicillin; Z72.0 Tobacco use
CPT/HCPCS: 36415; 80053; 83735; 84484; 84703; 85025; 93005; 93225; 93226; 96374; 99284; A9270; J2405; 93010

== ENCOUNTER 2020-05-20 18:38 | Emergency (ER) | payer MEDICAID ==
[2020-05-20] MEDS ORDERED: FLU VACC QS2020-21(6MOS UP)/PF 60 MCG/0.5 ML SYRINGE IM ONE (19:30)
[2020-05-20] MEDS ORDERED: Sodium Chloride 0.9% 1,000 ML IV SCH ×2 (19:30→20:45)
--- NOTE | 2020-05-20 19:30 | EDM.PDOC ---
ED HPI GENERAL MEDICAL PROBLEM - General Chief Complaint: Syncope Stated Complaint: [facility] Time Seen by Provider: 05/20/20 19:05 Source of Information: Reports: Patient, Family (Daughter) History Limitations: Reports: No Limitations - History of Present Illness INITIAL COMMENTS - FREE TEXT/NARRATIVE: Ms. Simms is a very pleasant 39-year-old woman who is now brought to the ED by EMS after suffering a syncopal episode. The patient states that she was in her bedroom, got up to go to the bathroom, then apparently suffered a syncopal sewed on her way to the bathroom. The patient's daughter, who is at the bedside, states that she heard the patient fall, and found the patient on the floor. Patient's daughter called 911. She states that she woke her to find the police performing a sternal rub on her. She denies suffering any injury, and states that the only thing that hurts is her sternum, although she states that she has a headache. She states that she had some nausea earlier, but EMS gave 4 mg of Zofran, the patient denies having nausea at this time. This is the patient's fifth syncopal episode over the past 2 years. Medical records indicates that the patient was seen in this ED on 04/18/2020, after suffering her fourth syncopal episode. Her BP was found to be elevated. A work-up was unremarkable. She was prescribed antihypertensive medication and discharged home with a Holter monitor, which she tells me at this time did not find any significant abnormalities. She was to follow-up with her PCP 1 week later, which she tells me she did on 05/10/2020, and that she was prescribed an additional antihypertensive medication, which she states she has been compliant with. Here in the ED, the patient's initial BP is found to be elevated at 161/107, otherwise, she is hemodynamically stable, afebrile, saturating 94% on room air. The patient states that she had some vomiting and diarrhea this past 05/18/2020, otherwise, the patient denies having a recent fever, chills, sore throat, ear pain, nasal or sinus congestion, cough, dyspnea, chest pain, palpitations, nausea, vomiting, constipation, diarrhea, abdominal pain, urinary symptoms, recent weight gain or weight loss, recent bloody bowel movements or black bowel movements, recent joint aches, headaches, or rashes. The patient's PCP is NNAMDI Walker. She has an appointment to follow-up with Mr. Leal on 05/23/2020. She does not recall the name of her Community Nurse, at [facility]. She states she has not received an influenza vaccine this season, but agreed to get 1 here in the ED. Headache Pain Score (Numeric/FACES): 8 - Related Data Allergies Allergy/AdvReac Type Severity Reaction Status Date / Time Penicillins AdvReac Nausea and Verified 05/20/20 18:48 Vomiting Home Meds: Home Meds Venlafaxine [Effexor] 37.5 mg PO DAILY 05/20/20 [History] hydroCHLOROthiazide [Hydrochlorothiazide] 25 mg PO DAILY 05/20/20 [History] lisinopriL [Lisinopril] 40 mg PO DAILY 05/20/20 [History] Past Medical History HEENT History: Reports: Allergic Rhinitis, Impaired Vision (wears glasses) Cardiovascular History: Reports: Hypertension Respiratory History: Reports: Asthma (suspected, not confirmed) [employer] History: Reports: Spontaneous (x 3) Musculoskeletal History: Reports: Fracture (right wrist, 2004) Psychiatric History: Reports: Anxiety, Depression Endocrine/Metabolic History: Reports: Obesity/BMI 30+ - Past Surgical History HEENT Surgical History: Reports: Oral Surgery (dental extractions) GI Surgical History: Reports: Cholecystectomy (around 2011) Female Surgical History: Reports: Tubal Ligation Social & Family History - Family History Cardiac: Reports: Hypertension, CO, Pacemaker Neurological: Reports: CVA, Dementia Psychiatric: Reports: Anxiety, Depression Endocrine/Metabolic: Reports: Diabetes, type II, Hypothyroidism Hematologic: Reports: None Oncologic: Reports: Liver, Metastatic - Tobacco Use Tobacco Use Status *Q: Current Every Day Tobacco User Years of Tobacco use: 22 Packs/Tins Daily: 0.5 Packs/Tins Daily Comment: Down from 1 ppd Tobacco Use Comment: Since 17 yrs old - Caffeine Use Caffeine Use: Reports: None - Alcohol Use Alcohol Use History: No - Recreational Drug Use Recreational Drug Use: Yes Drug Use in Last 12 Months: No Recreational Drug Type: Reports: Marijuana/Hashish (last smoked 2016) - Living Situation & Occupation Living situation: Reports: Single, with Significant Other (Fianc), with Family (Daughter) 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 - Physical Exam Exam: See Below Exam Limited By: No Limitations General Appearance: Alert, WD/WN, No Apparent Distress Eye Exam: Bilateral Eye: EOMI, Normal Inspection, PERRL Ears: Normal External Exam, Normal Canal, Hearing Grossly Normal, Normal TMs Nose: Normal Inspection, Normal Mucosa, No Blood Throat/Mouth: Normal Inspection, Normal Lips, Normal Teeth, Normal Gums, Normal Oropharynx, Normal Voice, No Airway Compromise, Other (Tongue piercing) Head Exam: Atraumatic, Normocephalic Neck: Normal Inspection, Supple, Non-Tender, Full Range of Motion. No: Lymphadenopathy (L), Lymphadenopathy (R) Respiratory/Chest: No Respiratory Distress, Lungs Clear, Normal Breath Sounds, No Accessory Muscle Use Cardiovascular: Normal Peripheral Pulses, Regular Rate, Rhythm, No Edema, No Gallop, No JVD, No Murmur, No Rub GI/Abdominal: Normal Bowel Sounds, Soft, Non-Tender, No Organomegaly, No Distention, No Abnormal Bruit, No Mass Neuro Exam (Abbreviated): Alert, Oriented, CN II-XII Intact, Normal Cognition, No Motor/Sensory Deficits Back Exam: Normal Inspection, Full Range of Motion, NT Extremities: Normal Inspection, Normal Range of Motion, No Pedal Edema, Normal Capillary Refill Psychiatric: Normal Affect Skin Exam: Warm, Dry, Intact, Normal Color, No Rash #1 Interpretation EKG Date: 05/20/20 Time: 19:55 Rhythm: NSR Rate (Beats/Min): 74 [place]: Normal P-Wave: Present QRS: Normal ST-T: Normal QT: Normal Comparison: No Change (04/18/2020) Course - Vital Signs Last Recorded V/S: Last Vital Signs Temp 36.6 C 05/20/20 18:44 Pulse 70 05/20/20 18:44 Resp 16 05/20/20 18:44 BP 161/107 H 05/20/20 18:44 Pulse Ox 94 L 05/20/20 18:44 Orthostatic Blood Pressure [ 150/105 Standing] Orthostatic Blood Pressure [ 146/103 Sitting] Orthostatic Blood Pressure [ 148/92 Supine] - Orders/Labs/Meds Labs: Laboratory Tests 05/20/20 05/20/20 05/20/20 Range/Units 19:41 19:41 19:41 WBC 10.92 H (3.98-10.04) K/mm3 RBC 4.25 (3.98-5.22) M/mm3 Hgb 12.0 (11.2-15.7) gm/dl Hct 37.5 (34.1-44.9) % MCV 88.2 (79.4-94.8) fl MCH 28.2 (25.6-32.2) pg MCHC 32.0 L (32.2-35.5) g/dl RDW Std Deviation 45.3 (36.4-46.3) fL Plt Count 278 (182-369) K/mm3 MPV 9.3 L (9.4-12.3) fl Neutrophils % (Manual) 59 (40-60) % Band Neutrophils % 1 (0-10) % Lymphocytes % (Manual) 28 (20-40) % Atypical Lymphs % 0 % Monocytes % (Manual) 10 (2-10) % Eosinophils % (Manual) 2 (0.7-5.8) % Basophils % (Manual) 0 L (0.1-1.2) Nucleated RBCs 2.0 % Platelet Estimate Adequate RBC Morph Comment Normal D-Dimer, Quantitative 0.87 H (0.19-0.50) mg/L Sodium 141 (136-145) mEq/L Potassium 3.5 (3.5-5.1) mEq/L Chloride 105 (98-107) mEq/L Carbon Dioxide 26 (21-32) mEq/L Anion Gap 13.5 (5-15) BUN 10 (7-18) mg/dL Creatinine 0.9 (0.55-1.02) mg/dL Est Cr Clr Drug Dosing 73.19 mL/min Estimated GFR (MDRD) > 60 (>60) mL/min BUN/Creatinine Ratio 11.1 L (14-18) Glucose 92 (74-106) mg/dL Calcium 8.3 L (8.5-10.1) mg/dL Magnesium 2.1 (1.8-2.4) mg/dl Total Bilirubin 0.3 (0.2-1.0) mg/dL AST 23 (15-37) U/L ALT 32 (14-59) U/L Alkaline Phosphatase 89 (46-116) U/L Troponin I 0.051 (0.00-0.056) ng/mL C-Reactive Protein 3.2 H* (<1.0) mg/dL Total Protein 7.3 (6.4-8.2) g/dl Albumin 3.2 L (3.4-5.0) g/dl Globulin 4.1 gm/dL Albumin/Globulin Ratio 0.8 L (1-2) TSH 3rd Generation 5.743 H (0.358-3.74) uIU/mL Urine HCG, Qual (NEGATIVE) Urine Opiates Screen (JVVWXP=599) Ur Buprenorphine Scrn (CUTOFF=10) Ur Oxycodone Screen (JAY3GV=669) Urine Methadone Screen (UJWPGS=642) Ur Propoxyphene Screen (IVEFZD=909) Ur Barbiturates Screen (LIZNDY=067) Ur Tricyclics Screen (CUUKEC=620) Ur Phencyclidine Scrn (CUTOFF=25) Ur Amphetamine Screen (LCHSCL=135) U Methamphetamines Scrn (QVILZT=282) U Benzodiazepines Scrn (MTPLDA=704) U Cocaine Metab Screen (MYSVDU=997) U Marijuana (THC) Screen (CUTOFF=50) Influenza Type A RNA (NEGATIVE) Influenza Type B RNA (NEGATIVE) SARS-CoV-2 RNA (TOMÁS) (NEGATIVE) 05/20/20 05/20/20 05/20/20 Range/Units 20:09 20:44 20:49 WBC (3.98-10.04) K/mm3 RBC (3.98-5.22) M/mm3 Hgb (11.2-15.7) gm/dl Hct (34.1-44.9) % MCV (79.4-94.8) fl MCH (25.6-32.2) pg MCHC (32.2-35.5) g/dl RDW Std Deviation (36.4-46.3) fL Plt Count (182-369) K/mm3 MPV (9.4-12.3) fl Neutrophils % (Manual) (40-60) % Band Neutrophils % (0-10) % Lymphocytes % (Manual) (20-40) % Atypical Lymphs % % Monocytes % (Manual) (2-10) % Eosinophils % (Manual) (0.7-5.8) % Basophils % (Manual) (0.1-1.2) Nucleated RBCs % Platelet Estimate RBC Morph Comment D-Dimer, Quantitative (0.19-0.50) mg/L Sodium (136-145) mEq/L Potassium (3.5-5.1) mEq/L Chloride (98-107) mEq/L Carbon Dioxide (21-32) mEq/L Anion Gap (5-15) BUN (7-18) mg/dL Creatinine (0.55-1.02) mg/dL Est Cr Clr Drug Dosing mL/min Estimated GFR (MDRD) (>60) mL/min BUN/Creatinine Ratio (14-18) Glucose (74-106) mg/dL Calcium (8.5-10.1) mg/dL Magnesium (1.8-2.4) mg/dl Total Bilirubin (0.2-1.0) mg/dL AST (15-37) U/L ALT (14-59) U/L Alkaline Phosphatase (46-116) U/L Troponin I (0.00-0.056) ng/mL C-Reactive Protein (<1.0) mg/dL Total Protein (6.4-8.2) g/dl Albumin (3.4-5.0) g/dl Globulin gm/dL Albumin/Globulin Ratio (1-2) TSH 3rd Generation (0.358-3.74) uIU/mL Urine HCG, Qual Negative (NEGATIVE) Urine Opiates Screen Negative (CHVSEV=526) Ur Buprenorphine Scrn Negative (CUTOFF=10) Ur Oxycodone Screen Negative (SQO2ND=037) Urine Methadone Screen Negative (UCLGQE=957) Ur Propoxyphene Screen Negative (ODEZEI=782) Ur Barbiturates Screen Negative (BAQSRU=104) Ur Tricyclics Screen Negative (NGCGAU=854) Ur Phencyclidine Scrn Negative (CUTOFF=25) Ur Amphetamine Screen Negative (EGIHFV=780) U Methamphetamines Scrn Negative (NOLXOR=669) U Benzodiazepines Scrn Negative (PNZDED=065) U Cocaine Metab Screen Negative (CFMMZM=178) U Marijuana (THC) Screen Presumptive positive H (CUTOFF=50) Influenza Type A RNA Negative (NEGATIVE) Influenza Type B RNA Negative (NEGATIVE) SARS-CoV-2 RNA (TOMÁS) Negative (NEGATIVE) Meds: Medications Discontinued Medications Generic Name Dose Route Start Last Admin Trade Name Freq PRN Reason Stop Dose Admin Sodium Chloride 1,000 mls @ 150 mls/hr 05/20/20 19:30 05/20/20 19:53 Normal Saline IV 150 mls/hr ASDIRECTED NEIL Administration Sodium Chloride 100 mls @ 4 mls/sec 05/20/20 21:15 05/20/20 21:44 Normal Saline IV 05/20/20 21:16 4 mls/sec ONETIME ONE Administration Influenza Virus Vaccine 1 each 05/20/20 19:27 Pharmacy To Dose - Influenza Vaccine IM 05/20/20 19:28 ONETIME ONE Influenza Virus Vaccine 60 mcg 05/20/20 19:30 05/20/20 20:00 Fluzone Quad [id number] Syringe IM 05/20/20 19:31 60 mcg .ONCE ONE Administration Iopamidol 100 ml 05/20/20 21:15 05/20/20 21:44 Isovue-370 (76%) IVPUSH 05/20/20 21:16 100 ml ONETIME ONE Administration Sodium Chloride 10 ml 05/20/20 21:15 05/20/20 21:44 Saline Flush FLUSH 10 ml ONETIME PRN Administration IV Flush - Re-Assessments/Exams Free Text/Narrative Re-Assessment/Exam: 05/20/20 19:27 As above, the patient suffered a syncopal episode in her bedroom tonight after she got up to go to the bathroom. The fall was heard by her daughter, who found her lying on the bedroom floor, and called 911. The patient woke to a sternal rub by the police, complaining of a headache and nausea. The patient was given Zofran by EMS, with resolution of her nausea. She states that she still has a headache and some sternal discomfort, but denies any other pain or injury, and she declined an offer for pain medication at this time. Her physical examination, including a thorough neurologic examination, is unremarkable. I have ordered a work-up that includes orthostatics, numerous blood tests, a urine test, a urine drug screen, a swab for both the SARS-CoV-2 virus and influenza, and an ECG. In the meantime, the patient will be given some IV fl uid. 05/20/20 20:29 The patient is not orthostatic. Her CBC is remarkable for leukocytosis of 10.92, but with only 1% bandemia, with the remainder of her CBC being unremarkable. Her CMP is unremarkable. Her magnesium level is within normal limits at 2.1. Her TSH is elevated at 5.743. Her CRP is mildly elevated at 3.2. Her troponin is within normal limits at 0.051. Her D-dimer is elevated at 0.87. The patient's swab for the SARS-CoV-2 virus and influenza has not yet resulted. A urine sample for the urine test and urine drug screen has not yet been collected. Based on the above, I have ordered a CT angiogram of the chest to evaluate for a PE. 05/20/20 21:27 The patient's urine test is negative. Her drug screen is positive for marijuana, only. Her swab for the SARS-CoV-2 virus and influenza viruses returned negative for all. 05/20/20 22:16 CT angiogram of the chest is read by Alondra as "There is no CT evidence of pulmonary embolism." 05/20/20 22:19 Test results discussed with the patient. As above, today's work-up is unremarkable and does not explain the cause of the patient's recurrent syncopal episodes. I will discharge her home with the recommendation that she follow-up with her PCP, who may consider referring her back to her Community Nurse, for further evaluation. Departure - Departure Time of Disposition: 22:19 Disposition: Home, Self-Care 01 Condition: Good Clinical Impression: Marijuana use, Elevated TSH Syncope Qualifiers: Syncope type: unspecified Qualified Code(s): R55 - Syncope and collapse - Discharge Information *PRESCRIPTION DRUG MONITORING PROGRAM REVIEWED*: Not Applicable *COPY OF PRESCRIPTION DRUG MONITORING REPORT IN PATIENT NIDIA: Not Applicable Instructions: What You Need to Know About Marijuana Use, Syncope, [id number] Referrals: Yvon Leal PA-C [Primary Care Provider] - Forms: ED Department Discharge Additional Instructions: You were seen in the emergency room after passing out at home. Work-up in the ER included positional blood pressure checks, numerous blood tests, a urine test, urine drug screen, a swab for the SARS-CoV-2 virus and influenza viruses, a CT angiogram of your chest, and an ECG. Your work-up revealed an elevated TSH level, indicating that you MAY be hypothyroid, otherwise, the remainder of your work-up was unremarkable, and does not explain the cause of your repeated episodes of passing out. We recommend that you follow-up with your PCP, NNAMDI Walker, for further evaluation, that should include a repeat TSH level. He may also want to refer you back to your Community Nurse in [place]. If any other problems, please do not hesitate to return to the ER. Sepsis Event Note (ED) - Evaluation Sepsis Screening Result: No Definite Risk
[2020-05-20 21:03] LABS: CORONAVIRUS COVID-19 NAA NEGATIVE (NEGATIVE)
[2020-05-20] MEDS ORDERED: Iopamidol 755 Mg/ML 100 ML Bottle IVPUSH ONE (21:15)
[2020-05-20] MEDS ORDERED: Sodium Chloride 0.9% 10 ML Syringe FLUSH PRN (21:15)
[2020-05-20] MEDS ORDERED: Sodium Chloride 0.9% 100 ML IV ONE (21:15)
--- NOTE | 2020-05-21 07:14 | CT ---
CT chest Technique: Multiple axial sections were obtained from above the lung apices inferiorly through the lung bases. Intravenous contrast was utilized. Study has been performed as a pulmonary angiogram protocol. Comparison: Prior chest CT of 07/21/18. Findings: Ascending aorta is ectatic. This ascending aorta measures about 4.2 cm in AP dimension which is stable. Pulmonary arteries are well opacified. No filling defects are seen to indicate pulmonary embolism. Mediastinum shows no adenopathy. No hilar adenopathy is seen. No axillary adenopathy is identified. Visualized upper abdominal structures show prior cholecystectomy. Nothing acute is definitely appreciated. Lung window settings were reviewed which show no acute parenchymal change. No pleural effusions are seen. Bone window settings were reviewed which show no acute osseous finding. Impression: 1. Dilated ascending aorta with AP dimension of about 4.2 cm. This appears stable from prior exam. 2. No findings of pulmonary embolism. Nothing acute is seen. Diagnostic code #3 I agree with preliminary report issued by [facility] finalized on 05/20/20, 10:55 PM [employer]FORMATION [employer]
== END 2020-05-20 22:31 | disposition home or self-care (01) ==
LOC: JD.ED 18:38
DX: R55 Syncope and collapse (principal); F12.90 Cannabis use, unspecified, uncomplicated; I10 Essential (primary) hypertension; J45.909 Unspecified asthma, uncomplicated; E66.9 Obesity, unspecified; Z68.36 Body mass index [BMI] 36.0-36.9, adult; R94.6 Abnormal results of thyroid function studies; Z20.822 Contact with and (suspected) exposure to COVID-19; Z88.0 Allergy status to penicillin; Z79.899 Other long term (current) drug therapy; Z72.0 Tobacco use
CPT/HCPCS: 0240U; 36415; 71275; 80053; 80306; 81025; 83735; 84443; 84484; 85007; 85027; 85379; 86140; 90471; 90686; 93005; 99285; J7030; Q9967; 93010; 99284; G0008

== ENCOUNTER 2020-07-15 19:24 | Emergency (ER) | payer MEDICAID ==
[2020-07-15] MEDS ORDERED: Ondansetron 4 MG/2 ML SDV IVPUSH ONE (20:02)
--- NOTE | 2020-07-15 20:02 | EDM.PDOC ---
ED HPI GENERAL MEDICAL PROBLEM - General Chief Complaint: Syncope Stated Complaint: [facility] Time Seen by Provider: 07/15/20 19:30 Source of Information: Reports: Patient History Limitations: Reports: No Limitations - History of Present Illness INITIAL COMMENTS - FREE TEXT/NARRATIVE: Patient reports feeling vaguely unwell and lightheaded throughout the day Symptoms began while she was at work She thought she would feel better after she got home and ate something After eating she felt somewhat better and went to [facility] with her daughter, but while there symptoms recurred Her daughter drove home because patient did not feel safe to do so When she got home, she went to her bedroom, where she apparently lost consciousness She awoke to find herself on EMS stretcher which paramedics were loading into the ambulance Complains of feeling nauseated currently Denies chest pain, shortness of breath, headache, or focal weakness Denies bowel bladder incontinence, head/scalp pain or injury, or tongue biting "I do not know why this keeps happening" She reports approximately 5 similar episodes occurring over the past 3-4 years Last episode was about 2 months ago and was associated with stressful situation She does not identify stressful circumstances associated with the other occurrences After initial occurrence 3 to 4 years ago, she had evaluation with cardiology which included cardiac rhythm monitoring and echocardiogram She has no known diagnosis or history of cardiac disorder She has not had neurology consultation She reports she has not taken her blood pressure medications for about a month "I keep forgetting" She admits to periodic use of marijuana, denies other drug use - Related Data Allergies Allergy/AdvReac Type Severity Reaction Status Date / Time Penicillins AdvReac Severe Nausea and Verified 07/15/20 19:30 Vomiting Home Meds: Home Meds hydroCHLOROthiazide [Hydrochlorothiazide] 25 mg PO DAILY 05/20/20 [History] lisinopriL [Lisinopril] 40 mg PO DAILY 05/20/20 [History] Past Medical History HEENT History: Reports: Allergic Rhinitis, Impaired Vision Other HEENT History: wears corrective lenses Cardiovascular History: Reports: Hypertension, Syncope Respiratory History: Reports: Asthma Gastrointestinal History: Reports: None Genitourinary History: Reports: None 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 Musculoskeletal History: Reports: Fracture Other Musculoskeletal History: 2004 Neurological History: Reports: None Psychiatric History: Reports: Anxiety, Depression Endocrine/Metabolic History: Reports: Obesity/BMI 30+ Hematologic History: Reports: None Immunologic History: Reports: None Oncologic (Cancer) History: Reports: None Dermatologic History: Reports: None - Infectious Disease History Infectious Disease History: Reports: None - Past Surgical History HEENT Surgical History: Reports: Oral Surgery GI Surgical History: Reports: Cholecystectomy Female Surgical History: Reports: Tubal Ligation Social & Family History - Family History Family Medical History: No Pertinent Family History HEENT: Reports: None Cardiac: Reports: Hypertension, [place], Pacemaker Respiratory: Reports: None GI: Reports: None : Reports: None OBGYN: Reports: None Musculoskeletal: Reports: None Neurological: Reports: CVA, Dementia Psychiatric: Reports: Anxiety, Depression Endocrine/Metabolic: Reports: Diabetes, type II, Hypothyroidism Hematologic: Reports: None Oncologic: Reports: Liver, Metastatic - Tobacco Use Tobacco Use Status *Q: Current Every Day Tobacco User Years of Tobacco use: 22 Packs/Tins Daily: 1 - Caffeine Use Caffeine Use: Reports: Soda - Recreational Drug Use Recreational Drug Use: Yes Recreational Drug Type: Reports: Marijuana/Hashish - Living Situation & Occupation Living situation: Reports: Single, with Significant Other (Fianc), with Family (Daughter) 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 ROS GENERAL - Review of Systems Review Of Systems: See Below Free Text/Narrative/Comment: Constitutional - no fever Eyes - no eye pain; no visual disturbance ENT - no rhinorrhea; no congestion; no epistaxis Cardiovascular - no chest pain; syncope Respiratory - no shortness of breath; no cough Gastrointestinal - no abdominal pain; nausea; no vomiting; no diarrhea Genitourinary - no dysuria Musculoskeletal - no neck pain; no back pain; no extremity injury Neurological - no headache; no speech disturbance; no weakness; dizziness ED EXAM, GENERAL - Physical Exam Exam: See Below Free Text/Narrative:: Constitutional - awake; alert; no acute distress Head - no facial swelling or weakness Eyes - extra ocular motion intact; conjunctiva normal; pupils equal and reactive to light ENT - no nasal deformity; no epistaxis; normal phonation; mucus membranes moist; Neck - no swelling Respiratory - normal respiratory effort; no crackles or wheezing; no stridor Cardiovascular - regular rhythm; normal rate; S1; S2; grade 1/6 systolic murmur GI/Abdomen - normal bowel sounds; soft; no tenderness; no rebound; no guarding; no mass Musculoskeletal - grossly normal strength and motion; no swelling or deformity Skin - warm; dry Neurologic - normal speech; no weakness Psychiatric - normal mood and affect; memory and attention normal #1 Interpretation EKG Date: 07/15/20 Time: 20:14 Rhythm: NSR Rate (Beats/Min): 63 [place]: Normal P-Wave: Present QRS: Normal ST-T: Other (Minor, nonspecific ST-T wave abnormality) Comparison: Other: (No significant change 05/20/2020) Course - Vital Signs Text/Narrative:: . Considered etiologies included: Dizziness, syncope, dysrhythmia, seizure, vasovagal response, dehydration, metabolic derangement Symptoms and examination were discussed Treatment for nausea was provided with ondansetron Investigations were initiated At reevaluation there was improvement in nausea and overall comfort Results were discussed, and were unremarkable Clinical presentation was most consistent with vasovagal syncope Consideration for neurology consultation and cardiology review was discussed Patient was felt to be stable for outpatient follow-up Return precautions were provided Last Recorded V/S: Last Vital Signs Temp 36.4 C 07/15/20 19:28 Pulse 64 07/15/20 22:30 Resp 19 07/15/20 22:30 BP 147/94 H 07/15/20 22:30 Pulse Ox 93 L 07/15/20 22:30 - Orders/Labs/Meds Orders: All Medication Orders Discontinued Medications Generic Name Dose Route Start Last Admin Trade Name Freq PRN Reason Stop Dose Admin Ondansetron HCl 4 mg 07/15/20 20:02 07/15/20 20:13 Ondansetron 4 Mg/2 Ml Sdv IVPUSH 07/15/20 20:03 4 mg ONETIME ONE Administration Labs: Laboratory Tests 07/15/20 07/15/20 07/15/20 Range/Units 20:09 20:09 20:59 WBC 13.60 H (3.98-10.04) K/mm3 RBC 3.93 L (3.98-5.22) M/mm3 Hgb 11.3 (11.2-15.7) gm/dl Hct 35.1 (34.1-44.9) % MCV 89.3 (79.4-94.8) fl MCH 28.8 (25.6-32.2) pg MCHC 32.2 (32.2-35.5) g/dl RDW Std Deviation 44.5 (36.4-46.3) fL Plt Count 283 (182-369) K/mm3 MPV 9.7 (9.4-12.3) fl Neut % (Auto) 61.2 (34.0-71.1) % Lymph % (Auto) 26.8 (19.3-51.7) % [place]alf[place] % (Auto) 5.5 (4.7-12.5) % Eos % (Auto) 6.0 H (0.7-5.8) Baso % (Auto) 0.3 (0.1-1.2) % Neut # (Auto) 8.32 H (1.56-6.13) K/mm3 Lymph # (Auto) 3.65 (1.18-3.74) K/mm3 [place] # (Auto) 0.75 H (0.24-0.36) K/mm3 Eos # (Auto) 0.81 H (0.04-0.36) K/mm3 Baso # (Auto) 0.04 (0.01-0.08) K/mm3 Manual Slide Review Normal smear Sodium 142 (136-145) mEq/L Potassium 3.8 (3.5-5.1) mEq/L Chloride 105 (98-107) mEq/L Carbon Dioxide 28 (21-32) mEq/L Anion Gap 12.8 (5-15) BUN 12 (7-18) mg/dL Creatinine 0.9 (0.55-1.02) mg/dL Est Cr Clr Drug Dosing 73.19 mL/min Estimated GFR (MDRD) > 60 (>60) mL/min BUN/Creatinine Ratio 13.3 L (14-18) Glucose 119 H (74-106) mg/dL Calcium 8.2 L (8.5-10.1) mg/dL Total Bilirubin 0.3 (0.2-1.0) mg/dL AST 15 (15-37) U/L ALT 23 (14-59) U/L Alkaline Phosphatase 84 (46-116) U/L Troponin I < 0.017 (0.00-0.056) ng/mL Total Protein 7.0 (6.4-8.2) g/dl Albumin 3.5 (3.4-5.0) g/dl Globulin 3.5 gm/dL Albumin/Globulin Ratio 1.0 (1-2) Urine Color Yellow (Yellow) Urine Appearance Clear (Clear) Urine pH 6.5 (5.0-8.0) Ur Specific [place] > or = 1.030 (1.005-1.030) Urine Protein Negative (Negative) Urine Glucose (UA) Negative (Negative) Urine Ketones Negative (Negative) Urine Occult Blood Negative (Negative) Urine Nitrite Negative (Negative) Urine Bilirubin Negative (Negative) Urine Urobilinogen 0.2 (0.2-1.0) Ur Leukocyte Esterase Trace H (Negative) Urine RBC 0-5 (0-5) /hpf Urine WBC 5-10 H (0-5) /hpf Ur Squamous Epith Cells 5-10 H (0-5) /hpf Urine Bacteria Few (FEW) /hpf Urine Mucus Few (FEW) /hpf Urine HCG, Qual (NEGATIVE) 07/15/20 Range/Units 20:59 WBC (3.98-10.04) K/mm3 RBC (3.98-5.22) M/mm3 Hgb (11.2-15.7) gm/dl Hct (34.1-44.9) % MCV (79.4-94.8) fl MCH (25.6-32.2) pg MCHC (32.2-35.5) g/dl RDW Std Deviation (36.4-46.3) fL Plt Count (182-369) K/mm3 MPV (9.4-12.3) fl Neut % (Auto) (34.0-71.1) % Lymph % (Auto) (19.3-51.7) % [place] % (Auto) (4.7-12.5) % Eos % (Auto) (0.7-5.8) Baso % (Auto) (0.1-1.2) % Neut # (Auto) (1.56-6.13) K/mm3 Lymph # (Auto) (1.18-3.74) K/mm3 [place] # (Auto) (0.24-0.36) K/mm3 Eos # (Auto) (0.04-0.36) K/mm3 Baso # (Auto) (0.01-0.08) K/mm3 Manual Slide Review Sodium (136-145) mEq/L Potassium (3.5-5.1) mEq/L Chloride (98-107) mEq/L Carbon Dioxide (21-32) mEq/L Anion Gap (5-15) BUN (7-18) mg/dL Creatinine (0.55-1.02) mg/dL Est Cr Clr Drug Dosing mL/min Estimated GFR (MDRD) (>60) mL/min BUN/Creatinine Ratio (14-18) Glucose (74-106) mg/dL Calcium (8.5-10.1) mg/dL Total Bilirubin (0.2-1.0) mg/dL AST (15-37) U/L ALT (14-59) U/L Alkaline Phosphatase (46-116) U/L Troponin I (0.00-0.056) ng/mL Total Protein (6.4-8.2) g/dl Albumin (3.4-5.0) g/dl Globulin gm/dL Albumin/Globulin Ratio (1-2) Urine Color (Yellow) Urine Appearance (Clear) Urine pH (5.0-8.0) Ur Specific [place] (1.005-1.030) Urine Protein (Negative) Urine Glucose (UA) (Negative) Urine Ketones (Negative) Urine Occult Blood (Negative) Urine Nitrite (Negative) Urine Bilirubin (Negative) Urine Urobilinogen (0.2-1.0) Ur Leukocyte Esterase (Negative) Urine RBC (0-5) /hpf Urine WBC (0-5) /hpf Ur Squamous Epith Cells (0-5) /hpf Urine Bacteria (FEW) /hpf Urine Mucus (FEW) /hpf Urine HCG, Qual Negative (NEGATIVE) Meds: Medications Discontinued Medications Generic Name Dose Route Start Last Admin Trade Name [place] PRN Reason Stop Dose Admin Ondansetron HCl 4 mg 07/15/20 20:02 07/15/20 20:13 Ondansetron 4 Mg/2 Ml Sdv IVPUSH 07/15/20 20:03 4 mg ONETIME ONE Administration Departure - Departure Time of Disposition: 22:37 Disposition: Home, Self-Care 01 Condition: Good Clinical Impression: Syncope Qualifiers: Syncope type: unspecified Qualified Code(s): R55 - Syncope and collapse - Discharge Information Instructions: Syncope Referrals: Yvon Leal PA-C [Primary Care Provider] - Forms: ED Department Discharge Additional Instructions: Return if condition worsens May resume general activity and regular diet as tolerated Continue usual medications Follow-up with primary care provider is recommended in 3 to 5 days Discuss neurology and/or cardiology consultation referral with primary care provider Sepsis Event Note (ED) - Evaluation Sepsis Screening Result: No Definite Risk
== END 2020-07-15 22:50 | disposition home or self-care (01) ==
LOC: JD.ED 19:24
DX: R55 Syncope and collapse (principal); I10 Essential (primary) hypertension; J45.909 Unspecified asthma, uncomplicated; E66.9 Obesity, unspecified; Z68.36 Body mass index [BMI] 36.0-36.9, adult; Z72.0 Tobacco use; Z88.0 Allergy status to penicillin; Z79.899 Other long term (current) drug therapy
CPT/HCPCS: 36415; 80053; 81001; 81025; 84484; 85025; 93005; 96374; 99284; J2405

== ENCOUNTER 2020-09-10 07:17 | Emergency (ER) | payer MEDICAID ==
--- NOTE | 2020-09-10 08:45 | CR ---
Chest: Portable view of the chest was obtained. Comparison: Prior chest x-ray of 11/24/19. Heart size is at the upper limits of normal. Upper mediastinum is within normal limits. Lungs are clear with no acute parenchymal change. No acute osseous abnormality is appreciated. Impression: 1. Nothing acute is seen on portable chest x-ray. Diagnostic code #1
--- NOTE | 2020-09-10 10:53 | EDM.PDOC ---
ED HPI GENERAL MEDICAL PROBLEM - General Chief Complaint: Syncope Stated Complaint: [facility] Time Seen by Provider: 09/10/20 07:23 Source of Information: Reports: Patient History Limitations: Reports: No Limitations - History of Present Illness INITIAL COMMENTS - FREE TEXT/NARRATIVE: 39 yo F with hx multiple episodes of syncope s/p extensive workup without identification of underlying cause presents with syncope. She has had multiple head CT's, CTA chest, echocardiogram, holter monitoring which has reportedly all been normal so far. Today she felt mildly dizzy/ill, went to a friend's house, and promptly passed out. She doesn't recall a prodrome of chest pain, headache, or shortness of breath. She's not sure how long she was out for. She has some discomfort when someone sternal rubbed her to wake her up. She denies fever, vomiting, cough, or other recent illness symptoms. She feels tired but otherwise ok now. She did take her usual blood pressure medications this morning, no recent med change. No ETOH/drug use. 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 Musculoskeletal History: Reports: Fracture Other Musculoskeletal History: Wrist 2004 Neurological History: Reports: None Psychiatric History: Reports: Anxiety, Depression Endocrine/Metabolic History: Reports: Obesity/BMI 30+ Hematologic History: Reports: None Immunologic History: Reports: None Oncologic (Cancer) History: Reports: None Dermatologic History: Reports: None - Infectious Disease History Infectious Disease History: Reports: None - Past Surgical History Head Surgeries/Procedures: Reports: None HEENT Surgical History: Reports: Oral Surgery GI Surgical History: Reports: Cholecystectomy Female Surgical History: Reports: Tubal Ligation Social & Family History - Family History Family Medical History: No Pertinent Family History HEENT: Reports: None Cardiac: Reports: Hypertension, [place], Pacemaker Respiratory: Reports: None GI: Reports: None : Reports: None OBGYN: Reports: None Musculoskeletal: Reports: None Neurological: Reports: CVA, Dementia Psychiatric: Reports: Anxiety, Depression Endocrine/Metabolic: Reports: Diabetes, type II, Hypothyroidism Hematologic: Reports: None Oncologic: Reports: Liver, Metastatic - Tobacco Use Tobacco Use Status *Q: Current Every Day Tobacco User Years of Tobacco use: 20 Packs/Tins Daily: 0.5 - Caffeine Use Caffeine Use: Reports: Soda - Living Situation & Occupation Living situation: Reports: Single, with Significant Other (Fianc), with Family (Daughter) 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 Denies: Fever HEENT: Reports: No Symptoms Respiratory: Denies: Shortness of Breath Cardiovascular: Reports: Chest Pain Endocrine: Reports: Fatigue GI/Abdominal: Denies: Abdominal Pain : Reports: No Symptoms Musculoskeletal: Reports: No Symptoms Skin: Reports: No Symptoms Neurological: Denies: Headache Psychiatric: Reports: No Symptoms Hematologic/Lymphatic: Reports: No Symptoms Immunologic: Reports: No Symptoms - Physical Exam Exam: See Below Exam Limited By: No Limitations General Appearance: Alert, WD/WN, No Apparent Distress Eye Exam: Bilateral Eye: EOMI, PERRL Ears: Normal External Exam Nose: Normal Inspection Throat/Mouth: Normal Inspection, Normal Voice Head Exam: Atraumatic, Normocephalic Neck: Normal Inspection, Supple, Non-Tender Respiratory/Chest: No Respiratory Distress, Lungs Clear, Normal Breath Sounds Cardiovascular: Normal Peripheral Pulses, Regular Rate, Rhythm, No Edema, No Murmur GI/Abdominal: Soft, Non-Tender, No Distention Neuro Exam (Abbreviated): Alert, Oriented, CN II-XII Intact, Normal Cognition, No Motor/Sensory Deficits Back Exam: Normal Inspection Extremities: Normal Inspection Psychiatric: Normal Affect, Normal Mood Skin Exam: Warm, Dry, Intact, Normal Color Course - Vital Signs Last Recorded V/S: Last Vital Signs Temp 36.6 C 09/10/20 07:25 Pulse 77 09/10/20 07:25 Resp 18 09/10/20 07:25 BP 162/108 H 09/10/20 07:25 Pulse Ox 95 09/10/20 07:25 - Orders/Labs/Meds Labs: Laboratory Tests 09/10/20 09/10/20 Range/Units 08:05 08:05 WBC 11.20 H (3.98-10.04) K/mm3 RBC 4.23 (3.98-5.22) M/mm3 Hgb 12.1 (11.2-15.7) gm/dl Hct 37.3 (34.1-44.9) % MCV 88.2 (79.4-94.8) fl MCH 28.6 (25.6-32.2) pg MCHC 32.4 (32.2-35.5) g/dl RDW Std Deviation 44.8 (36.4-46.3) fL Plt Count 277 (182-369) K/mm3 MPV 9.4 (9.4-12.3) fl Neut % (Auto) 63.6 (34.0-71.1) % Lymph % (Auto) 23.8 (19.3-51.7) % [place] % (Auto) 6.0 (4.7-12.5) % Eos % (Auto) 6.3 H (0.7-5.8) Baso % (Auto) 0.3 (0.1-1.2) % Neut # (Auto) 7.12 H (1.56-6.13) K/mm3 Lymph # (Auto) 2.67 (1.18-3.74) K/mm3 [place] # (Auto) 0.67 H (0.24-0.36) K/mm3 Eos # (Auto) 0.71 H (0.04-0.36) K/mm3 Baso # (Auto) 0.03 (0.01-0.08) K/mm3 Manual Slide Review Normal smear Sodium 143 (136-145) mEq/L Potassium 4.0 (3.5-5.1) mEq/L Chloride 106 (98-107) mEq/L Carbon Dioxide 27 (21-32) mEq/L Anion Gap 14.0 (5-15) BUN 12 (7-18) mg/dL Creatinine 1.0 (0.55-1.02) mg/dL Est Cr Clr Drug Dosing 65.87 mL/min Estimated GFR (MDRD) > 60 (>60) mL/min BUN/Creatinine Ratio 12.0 L (14-18) Glucose 93 (70-99) mg/dL Calcium 8.8 (8.5-10.1) mg/dL Total Bilirubin 0.3 (0.2-1.0) mg/dL AST 14 L (15-37) U/L ALT 21 (14-59) U/L Alkaline Phosphatase 86 (46-116) U/L Troponin I < 0.017 (0.00-0.056) ng/mL Total Protein 7.1 (6.4-8.2) g/dl Albumin 3.4 (3.4-5.0) g/dl Globulin 3.7 gm/dL Albumin/Globulin Ratio 0.9 L (1-2) - Re-Assessments/Exams Free Text/Narrative Re-Assessment/Exam: 09/10/20 13:43 EKG unremarkable, labs unremarkable, vitals stable throughout approx 4 hr ED stay. No apparent cause of syncope. She has had extensive workup which so far has not revealed an underlying provoking factor. She is stable, has no localizing symptoms in the ED, and we will plan to dc her with recommendation for PCP f/u. Discussed ED return precautions. Departure - Departure Time of Disposition: 10:54 Disposition: Home, Self-Care 01 Clinical Impression: Syncope Qualifiers: Syncope type: unspecified Qualified Code(s): R55 - Syncope and collapse - Discharge Information Instructions: Syncope, [id number] Referrals: Yvon Leal PA-C [Primary Care Provider] - Forms: ED Department Discharge Additional Instructions: 1. Follow up with your regular doctor as soon as possible 2. Return to the ED as needed for any new concerning symptoms Sepsis Event Note (ED) - Evaluation Sepsis Screening Result: No Definite Risk - Focused Exam Vital Signs: Vital Signs Temp Pulse Resp BP Pulse Ox 09/10/20 07:25 36.6 C 77 18 162/108 H 95
== END 2020-09-10 11:09 | disposition home or self-care (01) ==
LOC: JD.ED 07:17
DX: R55 Syncope and collapse (principal); I10 Essential (primary) hypertension; E66.9 Obesity, unspecified; Z68.36 Body mass index [BMI] 36.0-36.9, adult; Z79.899 Other long term (current) drug therapy; Z88.0 Allergy status to penicillin; Z72.0 Tobacco use
CPT/HCPCS: 36415; 71045; 71045-26; 80053; 84484; 85025; 93005; 99284; 99285-25

== ENCOUNTER 2020-09-16 00:31 | Emergency (ER) | payer MEDICAID ==
[2020-09-16] MEDS ORDERED: Clindamycin HCl 150 MG Cap PO ONE (01:29)
--- NOTE | 2020-09-16 01:58 | EDM.PDOC ---
ED HPI GENERAL MEDICAL PROBLEM - General Chief Complaint: ENT Problem Stated Complaint: JAW PAIN Time Seen by Provider: 09/16/20 00:42 Source of Information: Reports: Patient History Limitations: Reports: No Limitations - History of Present Illness INITIAL COMMENTS - FREE TEXT/NARRATIVE: Patient is a 39-year-old female is complaining having pain in her right jaw and tooth that is gotten worse tonight. Patient has had similar pain in the past. Is painful when she eats. She denies having a bad taste in her mouth or fever and chills. She has taken some Advil without relief. She has an appointment to see a dentist this October. Denies any chest pain or pressure. She is not short of breath. Any exertional symptoms. 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 Right Lower Jaw Pain Score (Numeric/FACES): 9 - Related Data Allergies Allergy/AdvReac Type Severity Reaction Status Date / Time Penicillins AdvReac Severe Nausea and Verified 09/16/20 00:49 Vomiting Home Meds: Home Meds lisinopriL [Lisinopril] 40 mg PO DAILY 05/20/20 [History] clindamycin HCL [Cleocin] 300 mg PO Q6H #14 cap 09/16/20 [Rx] Past Medical History HEENT History: Reports: Allergic Rhinitis, Impaired Vision Other HEENT History: wears corrective lenses Cardiovascular History: Reports: Hypertension, Syncope Respiratory History: Reports: Asthma Gastrointestinal History: Reports: None Genitourinary History: Reports: None 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 Musculoskeletal History: Reports: Fracture Other Musculoskeletal History: Wrist 2005 Neurological History: Reports: None Psychiatric History: Reports: Anxiety, Depression Endocrine/Metabolic History: Reports: Obesity/BMI 30+ Hematologic History: Reports: None Immunologic History: Reports: None Oncologic (Cancer) History: Reports: None Dermatologic History: Reports: None - Infectious Disease History Infectious Disease History: Reports: None - Past Surgical History Head Surgeries/Procedures: Reports: None HEENT Surgical History: Reports: Oral Surgery GI Surgical History: Reports: Cholecystectomy Female Surgical History: Reports: Tubal Ligation Social & Family History - Family History Family Medical History: No Pertinent Family History HEENT: Reports: None Cardiac: Reports: Hypertension, [place], Pacemaker Respiratory: Reports: None GI: Reports: None : Reports: None OBGYN: Reports: None Musculoskeletal: Reports: None Neurological: Reports: CVA, Dementia Psychiatric: Reports: Anxiety, Depression Endocrine/Metabolic: Reports: Diabetes, type II, Hypothyroidism Hematologic: Reports: None Oncologic: Reports: Liver, Metastatic - Tobacco Use Tobacco Use Status *Q: Current Every Day Tobacco User Years of Tobacco use: 22 Packs/Tins Daily: 0.5 - Caffeine Use Caffeine Use: Reports: None - Recreational Drug Use Recreational Drug Use: Yes Drug Use in Last 12 Months: Yes Recreational Drug Type: Reports: Marijuana/Hashish - Living Situation & Occupation Living situation: Reports: Single, with Significant Other (Fianc), with Family (Daughter) 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 ED EXAM, ENT - Physical Exam Exam: See Below Exam Limited By: No Limitations General Appearance: Alert, Mild Distress Mouth/Throat: Dental Abcess, Dental Pain, Other (Positive for dental decay tooth #27) Neck: Normal Inspection Respiratory/Chest: No Respiratory Distress Extremities: Normal Inspection Neurological: Alert, Oriented Psychiatric: Normal Affect Skin: Warm, Dry Course - Vital Signs Text/Narrative:: Patient is being started on clindamycin. I will give her a prescription for some [place] also. She is advised to continue using ibuprofen. She is to follow- up with her dentist as soon as possible for definitive treatment. She may return to ER if symptoms are worse. Last Recorded V/S: Last Vital Signs Temp 98.2 F 09/16/20 00:43 Pulse 85 09/16/20 00:43 Resp 20 09/16/20 00:43 BP 173/113 H 09/16/20 00:43 Pulse Ox 96 09/16/20 00:43 - Orders/Labs/Meds Meds: Medications Discontinued Medications Generic Name Dose Route Start Last Admin Trade Name Freq PRN Reason Stop Dose Admin Clindamycin HCl 300 mg 09/16/20 01:29 09/16/20 01:49 Clindamycin Hcl 150 Mg Cap PO 09/16/20 01:30 300 mg ONETIME ONE Administration Departure - Departure Time of Disposition: 01:55 Disposition: Home, Self-Care 01 Condition: Good Clinical Impression: Dental caries - Discharge Information Referrals: Yvon Leal PA-C [Primary Care Provider] - Additional Instructions: [place] [address] and clindamycin 300 mg 4 times daily for 10 days as prescribed. Take ibuprofen as needed. Follow-up with your dentist as soon as possible. Return to ER symptoms are worse. Sepsis Event Note (ED) - Evaluation Sepsis Screening Result: No Definite Risk - Focused Exam Vital Signs: Vital Signs Temp Pulse Resp BP Pulse Ox 09/16/20 00:43 98.2 F 85 20 173/113 H 96
== END 2020-09-16 02:15 | disposition home or self-care (01) ==
LOC: JD.ED 00:31
DX: K02.9 Dental caries, unspecified (principal); I10 Essential (primary) hypertension; J45.909 Unspecified asthma, uncomplicated; E66.9 Obesity, unspecified; Z68.36 Body mass index [BMI] 36.0-36.9, adult; Z72.0 Tobacco use; Z88.0 Allergy status to penicillin; Z79.899 Other long term (current) drug therapy
CPT/HCPCS: 99283; A9270

== ENCOUNTER 2020-10-09 09:10 | Emergency (ER) | payer MEDICAID ==
[2020-10-09] MEDS ORDERED: Ondansetron 4 MG Tab.DIS PO ONE (09:19)
[2020-10-09] MEDS ORDERED: Acetaminophen/oxyCODONE 325-5 MG Tab PO ONE (09:19)
[2020-10-09] MEDS ORDERED: LORazepam 2 MG/ML SDV IVPUSH ONE (09:27)
[2020-10-09] MEDS ORDERED: Ketorolac 30 MG/ML SDV IVPUSH ONE (09:27)
[2020-10-09] MEDS ORDERED: HYDROmorphone 1 MG/ML Syringe IVPUSH ONE (09:27)
[2020-10-09] MEDS ORDERED: Metoclopramide 10 MG/2 ML SDV IVPUSH ONE (09:28)
--- NOTE | 2020-10-09 09:28 | EDM.PDOC ---
ED HPI GENERAL MEDICAL PROBLEM - General Chief Complaint: Back Pain or Injury Stated Complaint: [facility] Time Seen by Provider: 10/09/20 09:20 Source of Information: Reports: Patient, EMS History Limitations: Reports: No Limitations - History of Present Illness INITIAL COMMENTS - FREE TEXT/NARRATIVE: 39-year-old female presents to the ED apparently having an unresponsive episode for over 2 hours according to her significant other. She was found lying on the bathroom floor this morning for greater than 2 hours. She has chronic low back pain and indicates that she either had a syncopal event or lost her balance and fell up against the wall and then down to the floor but was unable to get up from the floor. Paramedics were therefore summoned. She does suffer from chronic low back pain and takes only Tylenol. This morning she slid down the wall striking the back of her head and injuring her upper neck and complaining of low back pain. She arrives in the ED on a spine board. The other problem identified is that she has not had a bowel movement for 3 days. She is unwilling to have an IV started. She has a history of anxiety depression which seems to be worsened as of late. Denies any substance abuse issues. History of hypertension. She did not take her lisinopril tablet this morning but did take the metoprolol. Onset: Today, Unknown/Unsure Onset Date: 10/09/20 Onset Time: 04:00 Duration: Hour(s):, Constant Location: Reports: Neck (Primarily pain at the base of her skull and back of her neck.), Back (Lower mid thoracic and upper lumbar spine) Quality: Reports: Ache Severity: Moderate Improves with: Reports: None Worsens with: Reports: Movement Context: Reports: Trauma (Apparently fell backwards in her home up against a wall hard and slid down the wall to the floor. Complaining of pain at the base of her skull cervical spine and thoracolumbar junction. Other complaint is not being able to). Denies: Activity (No significant rib pain with deep inspiration.), Exercise, Lifting, Sick Contact Associated Symptoms: Denies: Chest Pain, Cough, cough w sputum, Diaphoresis, Fever/Chills, Headaches, Loss of Appetite, Malaise, Nausea/Vomiting, Rash, Seizure, Shortness of Breath, Syncope Treatments FLY MAKER: Reports: Other (see below) (None.) Left Lower Back Pain Score (Numeric/FACES): 8 - Related Data Allergies Allergy/AdvReac Type Severity Reaction Status Date / Time Penicillins AdvReac Severe Nausea and Verified 10/09/20 09:18 Vomiting Home Meds: Home Meds lisinopriL [Lisinopril] 40 mg PO DAILY 05/20/20 [History] Metoprolol Tartrate 0 mg PO BEDTIME 10/09/20 [History] oxyCODONE HCl/Acetaminophen [Percocet 5-325 mg Tablet] 1 - 2 each PO Q4H PRN #14 tablet 10/09/20 [Rx] polyethylene glycoL 3350 [MiraLAX] 17 gm PO DAILY #1 container 10/09/20 [Rx] Past Medical History HEENT History: Reports: Allergic Rhinitis, Impaired Vision Other HEENT History: wears corrective lenses Cardiovascular History: Reports: Hypertension, Syncope Respiratory History: Reports: Asthma Gastrointestinal History: Reports: None Genitourinary History: Reports: None CONTRACT RECRUITER History: Reports: Spontaneous Musculoskeletal History: Reports: Back Pain, Chronic (Neck low back pain.), Fracture Other Musculoskeletal History: Wrist 2004 Neurological History: Reports: None Psychiatric History: Reports: Anxiety, Depression Endocrine/Metabolic History: Reports: Obesity/BMI 30+ Hematologic History: Reports: None Immunologic History: Reports: None Oncologic (Cancer) History: Reports: None Dermatologic History: Reports: None - Infectious Disease History Infectious Disease History: Reports: None - Past Surgical History Head Surgeries/Procedures: Reports: None HEENT Surgical History: Reports: Oral Surgery GI Surgical History: Reports: Cholecystectomy Female Surgical History: Reports: Tubal Ligation Social & Family History - Family History Family Medical History: No Pertinent Family History HEENT: Reports: None Cardiac: Reports: Hypertension, PR, Pacemaker Respiratory: Reports: None GI: Reports: None : Reports: None OBGYN: Reports: None Musculoskeletal: Reports: None Neurological: Reports: CVA, Dementia Psychiatric: Reports: Anxiety, Depression Endocrine/Metabolic: Reports: Diabetes, type II, Hypothyroidism Hematologic: Reports: None Oncologic: Reports: Liver, Metastatic - Tobacco Use Tobacco Use Status *Q: Current Every Day Tobacco User Years of Tobacco use: 22 Packs/Tins Daily: 1.5 - Caffeine Use Caffeine Use: Reports: None - Recreational Drug Use Recreational Drug Use: No - Living Situation & Occupation Living situation: Reports: Single, with Significant Other (Fianc), with Family (Daughter) 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 Denies: Fever, Chills, Decreased Appetite, Weight Loss HEENT: Reports: No Symptoms Respiratory: Reports: No Symptoms Cardiovascular: Reports: No Symptoms Endocrine: Reports: Fatigue GI/Abdominal: Reports: Abdominal Pain (Generalized but mostly periumbilical. Left lower quadrant.), Constipation : Reports: No Symptoms Musculoskeletal: Reports: Neck Pain, Back Pain. Denies: Shoulder Pain, Arm Pain Skin: Reports: No Symptoms Neurological: Reports: Dizziness, Headache, Difficulty Walking (Difficult to move due to pain.). Denies: Confusion, Numbness, Seizure, Syncope, Tingling, Weakness Psychiatric: Reports: Anxiety, Depression Hematologic/Lymphatic: Reports: No Symptoms Immunologic: Reports: No Symptoms ED EXAM, UPPER BACK/NECK PAIN - Physical Exam Exam: See Below Exam Limited By: No Limitations General Appearance: Alert, WD/WN, Mild Distress, Other (Arrives in the right lateral decubitus position on spine board. This was only where the paramedics get her out of her small bathroom at home where she fell and hit the wall. Is unclear if she suffered a syncopal event.) Eye Exam: Bilateral Eye: Normal Inspection (Blepharal pallor or scleral icterus.), PERRL Ears Exam: Normal External Exam Throat/Mouth Exam: Normal Inspection, Normal Lips, Normal Oropharynx, Other (No evidence of tongue or) Head Exam: Atraumatic ( dental injury.), Normocephalic, Other (Obvious hematomas posterior scalp. She has the back of her head shaved with pink dye in hair above this.) Neck Exam: Normal Alignment, Normal Inspection, Paraspinous Muscle Tender, Other (To palpation base of skull and throughout the cervical spine with no step-off deformities appreciated.) Nexus Criteria: Posterior, Midline Cervical Tenderness Cardiovascular/Respiratory: Regular Rate, Rhythm, No M/R/G, Normal Peripheral Pulses, No JVD GI/Abdominal: Normal Bowel Sounds, Soft, Non-Tender, No Organomegaly, No Mass, Pelvis Stable, Other. No: Guarding, Rigid (Moderately obese), Rebound, Tender Back Exam: Decreased Range of Motion, Vertebral Tenderness (Pain throughout the thoracolumbar spine and lumbar spine area. No palpable step-off deformities no abrasions or contusions identified to the thoracic or lumbar spine area.) Extremities: Normal Inspection, Normal Range of Motion, Non-Tender, No Pedal Edema, Other (No obvious injuries to her hands wrists elbows or shoulders knees hips or ) Neurologic: interventional cardiologist II-XII nml As Tested (goals.), Alert, Oriented x 3, Other (And affect.) Psychiatric: Flat Affect Skin Exam: Normal Color, Warm/Dry Lymphatic: No Adenopathy #1 Interpretation EKG Date: 10/09/20 Time: 09:39 Rhythm: Other (Sinus arrhythmia with a rate of 70 to 80/min) Rate (Beats/Min): 72 (Occasional PVCs) [place]: Normal P-Wave: Enlarged QRS: Other (Left atrial hypertrophy) ST-T: Normal QT: Prolonged Course - Vital Signs Last Recorded V/S: Last Vital Signs Temp 36.3 C 10/09/20 09:14 Pulse 70 10/09/20 09:14 Resp 18 10/09/20 09:14 BP 185/109 H 10/09/20 09:14 Pulse Ox 96 10/09/20 09:14 - Orders/Labs/Meds Orders: Active Orders 24 hr Category Date Time Status EKG Documentation Completion [RC] STAT Care 10/09/20 09:23 Active CBC WITH AUTO DIFF [HEME] Stat Lab 10/09/20 09:19 Results Dextrose 5%-0.9% NaCl [Dextrose 5%-Normal Saline] 1,000 Med 10/09/20 09:45 Active ml IV ASDIRECTED Medication Orders Dextrose/Sodium Chloride (Dextrose 5%-Normal Saline) 1,000 mls @ 500 mls/hr IV ASDIRECTED NEIL Last Admin: 10/09/20 09:44 Dose: 500 mls/hr Documented by: CHLOE Labs: Laboratory Tests 10/09/20 10/09/20 Range/Units 09:19 09:19 WBC 12.39 H (3.98-10.04) K/mm3 RBC 4.55 (3.98-5.22) M/mm3 Hgb 13.0 (11.2-15.7) gm/dl Hct 40.1 (34.1-44.9) % MCV 88.1 (79.4-94.8) fl MCH 28.6 (25.6-32.2) pg MCHC 32.4 (32.2-35.5) g/dl RDW Std Deviation 46.9 H (36.4-46.3) fL Plt Count 346 (182-369) K/mm3 MPV 9.5 (9.4-12.3) fl Neut % (Auto) 64.7 (34.0-71.1) % Lymph % (Auto) 24.5 (19.3-51.7) % [place] % (Auto) 5.6 (4.7-12.5) % Eos % (Auto) 4.8 (0.7-5.8) Baso % (Auto) 0.2 (0.1-1.2) % Neut # (Auto) 8.00 H (1.56-6.13) K/mm3 Lymph # (Auto) 3.04 (1.18-3.74) K/mm3 [place] # (Auto) 0.70 H (0.24-0.36) K/mm3 Eos # (Auto) 0.60 H (0.04-0.36) K/mm3 Baso # (Auto) 0.03 (0.01-0.08) K/mm3 Sodium 141 (136-145) mEq/L Potassium 3.9 (3.5-5.1) mEq/L Chloride 105 (98-107) mEq/L Carbon Dioxide 27 (21-32) mEq/L Anion Gap 12.9 (5-15) BUN 13 (7-18) mg/dL Creatinine 0.9 (0.55-1.02) mg/dL Est Cr Clr Drug Dosing 73.19 mL/min Estimated GFR (MDRD) > 60 (>60) mL/min BUN/Creatinine Ratio 14.4 (14-18) Glucose 97 (70-99) mg/dL Calcium 8.6 (8.5-10.1) mg/dL Magnesium 2.1 (1.8-2.4) mg/dL Total Bilirubin 0.2 (0.2-1.0) mg/dL AST 14 L (15-37) U/L ALT 27 (14-59) U/L Alkaline Phosphatase 88 (46-116) U/L Creatine Kinase 53 (26-192) U/L C-Reactive Protein 1.6 H* (<1.0) mg/dL Total Protein 7.9 (6.4-8.2) g/dl Albumin 3.7 (3.4-5.0) g/dl Globulin 4.2 gm/dL Albumin/Globulin Ratio 0.9 L (1-2) TSH 3rd Generation 4.387 H (0.358-3.74) uIU/mL Ethyl Alcohol 0.00 (0.00) gm% Meds: Medications Generic Name Dose Route Start Last Admin Trade Name Freq PRN Reason Stop Dose Admin Dextrose/Sodium Chloride 1,000 mls @ 500 mls/hr 10/09/20 09:45 10/09/20 09:44 Dextrose 5%-Normal Saline IV 500 mls/hr ASDIRECTED NEIL Administration Discontinued Medications Generic Name Dose Route Start Last Admin Trade Name Freq PRN Reason Stop Dose Admin Hydromorphone HCl 1 mg 10/09/20 09:27 10/09/20 09:39 Hydromorphone 1 Mg/Ml Syringe IVPUSH 10/09/20 09:28 1 mg ONETIME ONE Administration Ketorolac Tromethamine 30 mg 10/09/20 09:27 10/09/20 09:36 Ketorolac 30 Mg/Ml Sdv IVPUSH 10/09/20 09:28 30 mg ONETIME ONE Administration Lorazepam 1 mg 10/09/20 09:27 10/09/20 09:38 Lorazepam 2 Mg/Ml Sdv IVPUSH 10/09/20 09:28 1 mg ONETIME ONE Administration Metoclopramide HCl 7.5 mg 10/09/20 09:28 10/09/20 09:34 Metoclopramide 10 Mg/2 Ml Sdv IVPUSH 10/09/20 09:29 7.5 mg ONETIME ONE Administration Ondansetron HCl 4 mg 10/09/20 09:19 10/09/20 09:35 Ondansetron 4 Mg Tab.Dis PO 10/09/20 09:20 Not Given ONETIME ONE Oxycodone/Acetaminophen 2 tab 10/09/20 09:19 10/09/20 09:35 Acetaminophen/Oxycodone 325-5 Mg Tab PO 10/09/20 09:20 Not Given ONETIME ONE - Radiology Interpretation Free Text/Narrative:: 39-year-old female found lying on the bathroom floor by her significant other this morning. Currently she had fallen sometime during the night and claims t hat she has been on the bathroom floor for over 2 hours unable to get up due to exacerbation of chronic lower back pain. She arrives in the ED in the right lateral decubitus position on a spine board. She does not remember if she was knocked out or not. She remembers losing her balance or having a syncopal event and banging her head against the back of the wall and sliding down the wall to the floor. Due to back pain she was unable to get up from the floor. Plan CT head CT cervical spine thoracic spine and lumbar spine. KUB of the abdomen since she has not had about 1 for 3 days. Routine labs to be obtained. IV will be D5 normal saline at 500 mils an hour. Given Dilaudid 1 mg IV with Ativan 1 mg IV and Toradol 30 mg IV for pain relief. - Re-Assessments/Exams Free Text/Narrative Re-Assessment/Exam: 10/09/20 10:42 CT of the cervical spine has been completed. Vertebral body heights and disc spaces are maintained. No bony central or bony neuroforaminal stenosis is seen. No fracture is seen. No abnormal subluxation is seen. CT of the head reveals ventricles along with the basal cisterns and sulci over the convexities are within normal limits for the patient's age. No abnormal parenchymal densities are seen. No evidence of intracranial hemorrhage is seen. No midline shift or mass-effect is identified. Mucosal thickening is seen within the frontal, ethmoid and right maxillary sinuses. Visualized mastoid sinuses are otherwise clear. No acute calvarial abnormalities appreciated. CT of the lumbar spine reveals mild disc space narrowing posteriorly at L4-5 and L5-S1 levels. Diffuse posterior disc bulge is seen at the L3-4 level with slight calcification within this disc bulge indicating chronicity. Posterior spurring is noted at the L5-S1 level. Vacuum phenomena is noted within the SI joints. No fractures subluxations are identified. The x-ray of the abdomen was done due to complaints of constipation. Surgical clips are seen within the pelvis compared with previous tubal ligation. Surgical clips are noted from prior cholecystectomy as well. Bowel gas pattern is normal. Phlebolith is seen within the right pelvis. No abnormal calcifications or to soft tissue abnormality is identified. Mildly increased stool throughout the right hemicolon is hepatic flexure identified. Bladder appears full in the pelvis. CT scan of the thoracic spine shows the vertebral body heights to be maintained. Disc spaces are fairly well-maintained. Very minimal scattered anterior endplate osteophytes are seen. No bony central or bony neuroforaminal stenosis is seen. No acute fractures or subluxation identified. 10/09/20 11:03 discussed the findings with the patient and let her know that no fractures have occurred. She is banged up and will be stiff and sore for the next 3 to 4 days. Note will be given to excuse her from the workplace for the next 4 days. Prescription written for Percocet tablets 5/325 mg tablet 1 or 2 every 4-6 hours necessary for pain relief x12 tablets. Continue Motrin or Aleve 2 tablets every 8 hours for pain relief as well. Departure - Departure Time of Disposition: 11:04 Disposition: Home, Self-Care 01 Condition: Fair Clinical Impression: Syncope and collapse Contusion, back Qualifiers: Encounter type: initial encounter Laterality: unspecified laterality Qualified Code(s): S20.229A - Contusion of unspecified back wall of thorax, initial encounter Sprain of cervical neck Qualifiers: Encounter type: initial encounter Qualified Code(s): S13.9XXA - Sprain of joints and ligaments of unspecified parts of neck, initial encounter - Discharge Information *PRESCRIPTION DRUG MONITORING PROGRAM REVIEWED*: Not Applicable *COPY OF PRESCRIPTION DRUG MONITORING REPORT IN PATIENT NIDIA: Not Applicable Prescriptions: polyethylene glycoL 3350 [MiraLAX] 17 gm PO DAILY #1 container oxyCODONE HCl/Acetaminophen [Percocet 5-325 mg Tablet] 1 - 2 each PO Q4H PRN #14 tablet PRN Reason: pain relief. Referrals: Yvon Leal PA-C [Primary Care Provider] - Forms: ED Department Discharge, ED Return to Work/School Form Additional Instructions: Is to injury sustained from suspect syncope or fainting spell and collapsed to the floor in your bathroom during the night. It is estimated that you are on the bathroom floor for over 2 hours and unable to get on up on your own volition. In the emergency room you indicated that you had pain at the back of your head throughout your neck mid and lower thoracic spine as well as lower back or lumbar spine. Also problems with constipation. CT of the head and brain revealed no abnormalities particular no intracranial bleeding or mass- effect. CT of the neck bones revealed no broken bones similarly CT of the thoracic or mid back bones which are 12 bones including ribs showed no injuries. There is evidence of degenerative arthritic changes throughout the lumbar spine particularly large disc bulge at the lumbar 4 area with calcification indicating is been present for a long period of time there is also disc narrowing at the L5-S1 level but no nerve root entrapment identified. An x-ray of the abdomen was done due to the questionable constipation. There is increased stool in the right upper quadrant of the abdomen and a little bit in the rectal vault but no major problems with constipation. Treatment is time to heal. You are going to feel increased stiffness and soreness over the next 24 to 48 hours. Suggest us ing Aleve 2 tablets every 8 hours to relieve pain and inflammation. Percocet tablets 5/325 mg strength 1 or 2 every 4-6 hours as necessary for pain relief I would certainly try 1 with the Aleve first as some people find them quite strong and could make you sleepy and have difficulty walking again. Suggest MiraLAX powder 17 g or 1 scoop daily mixed with beverage of choice to prevent constipation while on the stronger pain pills. Off work for the next 4 to 5 days due to injuries. Note given in this regard follow-up with personal care physician if any further problems occur Sepsis Event Note (ED) - Evaluation Sepsis Screening Result: No Definite Risk - Focused Exam Vital Signs: Vital Signs Temp Pulse Resp BP Pulse Ox 10/09/20 09:14 36.3 C 70 18 185/109 H 96 - My Orders Last 24 Hours: My Active Orders 10/09/20 09:19 CBC WITH AUTO DIFF [HEME] Stat 10/09/20 09:23 EKG Documentation Completion [RC] STAT 10/09/20 09:45 Dextrose 5%-0.9% NaCl [Dextrose 5%-Normal Saline] 1,000 ml IV ASDIRECTED - Assessment/Plan Last 24 Hours: My Active Orders 10/09/20 09:19 CBC WITH AUTO DIFF [HEME] Stat 10/09/20 09:23 EKG Documentation Completion [RC] STAT 10/09/20 09:45 Dextrose 5%-0.9% NaCl [Dextrose 5%-Normal Saline] 1,000 ml IV ASDIRECTED
[2020-10-09] MEDS ORDERED: Dextrose 5%-0.9% NaCl 1,000 ML IV SCH (09:45)
--- NOTE | 2020-10-09 10:35 | CT ---
Head CT Technique: Multiple axial sections through the brain were obtained. Intravenous contrast was not utilized. Reconstructed coronal and sagittal images were obtained. Comparison: Prior head CT study of 06/26/19. Findings: Ventricles along with basal cisterns and sulci over the convexities are within normal limits for the patient's age. No abnormal parenchymal densities are seen. No evidence of intracranial hemorrhage is seen. No midline shift or mass-effect is seen. Mucosal thickening is seen within the frontal, ethmoid and right maxillary sinus. Visualized mastoid sinuses are clear. No acute calvarial abnormality is appreciated. Impression: 1. Sinus findings which most likely represent chronic sinusitis. This has increased in prominence from prior exam. 2. No acute intracranial abnormality is seen. Diagnostic code #2
--- NOTE | 2020-10-09 10:39 | CT ---
CT cervical spine Technique: Multiple axial sections were obtained from above C1 inferiorly to the bottom of T1. Reconstructed coronal and sagittal were obtained. Comparison: No prior cervical spine imaging is available. Findings: Vertebral body heights and disc spaces are maintained. No bony central or bony neural foraminal stenosis is seen. No fracture is seen. No abnormal subluxation is seen. Impression: 1. Nothing acute is appreciated on CT study of the cervical spine. Diagnostic code #1
--- NOTE | 2020-10-09 10:39 | CT ---
CT lumbar spine Technique: Multiple axial sections were obtained through the lumbar spine. Reconstructed coronal and sagittal images were obtained. Comparison: No prior lumbar spine imaging is available. Findings: Mild disc space narrowing is seen posteriorly at L4-5 and L5-S1. Diffuse posterior disc bulge is seen at L3-4 with slight calcification within the disc bulge. Posterior spurring is noted at L5-S1. Vacuum phenomena is noted within the sacroiliac joints. No fracture or subluxation is seen. Impression: 1. Mild degenerative change as noted above. 2. No acute fracture or subluxation is seen. Diagnostic code #2
--- NOTE | 2020-10-09 10:46 | CR ---
Abdomen: Supine view of the abdomen was obtained. Comparison: No prior abdominal x-ray. Surgical clips are seen within the pelvis compatible with previous tubal ligation. Surgical clips are noted from prior cholecystectomy. Bowel gas pattern is normal. Phlebolith is seen within the right pelvis. No abnormal calcifications or soft tissue abnormality is seen. Impression: 1. Nothing acute is seen on supine abdominal x-ray. Diagnostic code #2
--- NOTE | 2020-10-09 10:46 | CT ---
CT thoracic spine Technique: Multiple axial sections were obtained through the thoracic spine. Reconstructed coronal and sagittal images were obtained. Comparison: No prior thoracic spine imaging is available. Findings: Vertebral body heights are maintained. Disc spaces are fairly well maintained. Very minimal scattered anterior endplate osteophytes are seen. No bony central or bony neural foraminal stenosis is seen. No acute fracture or subluxation is seen. Impression: 1. Slight scattered anterior endplate osteophytes. 2. Nothing acute is seen on CT study of the thoracic spine. Diagnostic code #2
== END 2020-10-09 11:23 | disposition home or self-care (01) ==
LOC: JD.ED 09:10
DX: S13.4XXA Sprain of ligaments of cervical spine, initial encounter (principal); S20.229A Contusion of unspecified back wall of thorax, initial encounter; S00.03XA Contusion of scalp, initial encounter; S09.93XA Unspecified injury of face, initial encounter; R55 Syncope and collapse; I49.8 Other specified cardiac arrhythmias; I10 Essential (primary) hypertension; J45.909 Unspecified asthma, uncomplicated; E66.9 Obesity, unspecified; Z68.36 Body mass index [BMI] 36.0-36.9, adult; Z72.0 Tobacco use; Z88.0 Allergy status to penicillin; Z79.899 Other long term (current) drug therapy; W19.XXXA Unspecified fall, initial encounter; Y92.002 Bathroom of unspecified non-institutional (private) residence as the place of occurrence of the external cause
CPT/HCPCS: 36415; 70450; 72125; 72128; 72131; 74018; 80053; 80307; 82550; 83735; 84443; 85025; 86140; 93005; 96374; 96375; 99285; J1170; J1885; J2060; J2765; J7042; 93010; 99284

== ENCOUNTER 2020-11-15 09:07 | Emergency (ER) | payer MEDICAID ==
[2020-11-15] MEDS ORDERED: Sodium Chloride 0.9% 10 ML Syringe FLUSH PRN (09:21)
[2020-11-15] MEDS ORDERED: Sodium Chloride 0.9% 1,000 ML IV SCH (09:30)
--- NOTE | 2020-11-15 10:28 | CR ---
Chest: Portable view of the chest was obtained. Comparison: Prior chest x-ray of 09/10/20. Heart is felt to be somewhat enlarged. Tortuous thoracic aorta is seen. Lungs are clear with no acute parenchymal change. No acute osseous abnormality is appreciated. Impression: 1. Heart is felt to be slightly enlarged. Slight tortuosity of the thoracic aorta is seen. 2. Nothing acute is otherwise seen on portable chest x-ray. Diagnostic code #2
--- NOTE | 2020-11-15 12:29 | EDM.PDOC ---
ED HPI GENERAL MEDICAL PROBLEM - General Chief Complaint: Gastrointestinal Problem Stated Complaint: [facility] Time Seen by Provider: 11/15/20 09:12 Source of Information: Reports: Patient, EMS History Limitations: Reports: No Limitations - History of Present Illness INITIAL COMMENTS - FREE TEXT/NARRATIVE: The patient presents by [facility] for nausea and vomiting. The patient said a few days ago she starting having a mild sore throat, congestion and slight cough. She also has been on clindamycin for a tooth infection. She started vomiting this morning at 2am. She has no diarrhea. She has no abdominal pain. She has no fever or chills. She did not get vaccinated for COVID 19. Onset: Gradual Duration: Day(s): Severity: Moderate Improves with: Reports: None Worsens with: Reports: None Associated Symptoms: Reports: Cough, Nausea/Vomiting, Shortness of Breath. Denies: Chest Pain, Fever/Chills, Headaches - Related Data Allergies Allergy/AdvReac Type Severity Reaction Status Date / Time Penicillins AdvReac Severe Nausea and Verified 11/15/20 09:15 Vomiting Home Meds: Home Meds lisinopriL [Lisinopril] 40 mg PO DAILY 05/20/20 [History] Metoprolol Tartrate 0 mg PO BEDTIME 10/09/20 [History] oxyCODONE HCl/Acetaminophen [Percocet 5-325 mg Tablet] 1 - 2 each PO Q4H PRN #14 tablet 10/09/20 [Rx] polyethylene glycoL 3350 [MiraLAX] 17 gm PO DAILY #1 container 10/09/20 [Rx] Ondansetron [Zofran ODT] 4 mg PO Q6H PRN #20 tab.dis 11/15/20 [Rx] Past Medical History HEENT History: Reports: Allergic Rhinitis, Impaired Vision Other HEENT History: wears corrective lenses Cardiovascular History: Reports: Hypertension, Syncope Respiratory History: Reports: Asthma Gastrointestinal History: Reports: None Genitourinary History: Reports: None [employer] History: Reports: Spontaneous Musculoskeletal History: Reports: Back Pain, Chronic, Fracture Other Musculoskeletal History: 2004 Neurological History: Reports: None Psychiatric History: Reports: Anxiety, Depression Endocrine/Metabolic History: Reports: Obesity/BMI 30+ Hematologic History: Reports: None Immunologic History: Reports: None Oncologic (Cancer) History: Reports: None Dermatologic History: Reports: None - Infectious Disease History Infectious Disease History: Reports: None - Past Surgical History Head Surgeries/Procedures: Reports: None HEENT Surgical History: Reports: Oral Surgery GI Surgical History: Reports: Cholecystectomy Female Surgical History: Reports: Tubal Ligation Social & Family History - Family History Family Medical History: No Pertinent Family History HEENT: Reports: None Cardiac: Reports: Hypertension, PR, Pacemaker Respiratory: Reports: None GI: Reports: None : Reports: None OBGYN: Reports: None Musculoskeletal: Reports: None Neurological: Reports: CVA, Dementia Psychiatric: Reports: Anxiety, Depression Endocrine/Metabolic: Reports: Diabetes, type II, Hypothyroidism Hematologic: Reports: None Oncologic: Reports: Liver, Metastatic - Tobacco Use Tobacco Use Status *Q: Current Every Day Tobacco User Years of Tobacco use: 20 Packs/Tins Daily: 0.2 - Caffeine Use Caffeine Use: Reports: None - Recreational Drug Use Recreational Drug Use: No - Living Situation & Occupation Living situation: Reports: Single, with Significant Other (Fianc), with Family (Daughter) 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 Denies: Fever, Chills HEENT: Reports: No Symptoms Respiratory: Reports: Shortness of Breath, Cough Cardiovascular: Reports: No Symptoms Endocrine: Reports: No Symptoms GI/Abdominal: Reports: Nausea, Vomiting. Denies: Abdominal Pain : Reports: No Symptoms Musculoskeletal: Reports: No Symptoms ED EXAM, GI/ABD - Physical Exam Exam: See Below Exam Limited By: No Limitations General Appearance: Alert, No Apparent Distress Ears: Normal External Exam Nose: Normal Inspection Head: Atraumatic, Normocephalic Neck: Normal Inspection Respiratory/Chest: No Respiratory Distress, Lungs Clear, Normal Breath Sounds Cardiovascular: Regular Rate, Rhythm, No Edema, No Murmur GI/Abdominal Exam: Soft, Non-Tender, No Organomegaly, No Mass Course - Vital Signs Last Recorded V/S: Last Vital Signs Temp 97.3 F 11/15/20 09:11 Pulse 79 11/15/20 09:11 Resp 18 11/15/20 09:11 BP 207/117 H 11/15/20 09:11 Pulse Ox 97 11/15/20 09:11 - Orders/Labs/Meds Orders: Active Orders 24 hr Category Date Time Status Cardiac Monitoring [RC] . DIRECTED Care 11/15/20 09:21 Active Peripheral IV Care [RC] . DIRECTED Care 11/15/20 09:21 Active Sodium Chloride 0.9% [Normal Saline] 1,000 ml Med 11/15/20 09:30 Active IV .BOLUS Sodium Chloride 0.9% [Saline Flush] Med 11/15/20 09:21 Active 10 ml FLUSH ASDIRECTED PRN Peripheral IV Insertion Adult [OM.PC] Stat Oth 11/15/20 09:21 Ordered Medication Orders Sodium Chloride (Normal Saline) 1,000 mls @ 1,000 mls/hr IV .BOLUS NEIL Last Admin: 11/15/20 09:29 Dose: 1,000 mls/hr Documented by: TANYA Sodium Chloride (Sodium Chloride 0.9% 10 Ml Syringe) 10 ml FLUSH ASDIRECTED PRN PRN Reason: Keep Vein Open Last Admin: 11/15/20 09:29 Dose: 10 ml Documented by: TANYA Labs: Laboratory Tests 11/15/20 11/15/20 11/15/20 Range/Units 09:16 09:41 09:41 WBC 10.31 H (3.98-10.04) K/mm3 RBC 4.18 (3.98-5.22) M/mm3 Hgb 12.1 (11.2-15.7) gm/dl Hct 37.6 (34.1-44.9) % MCV 90.0 (79.4-94.8) fl MCH 28.9 (25.6-32.2) pg MCHC 32.2 (32.2-35.5) g/dl RDW Std Deviation 46.6 H (36.4-46.3) fL Plt Count 280 (182-369) K/mm3 MPV 9.5 (9.4-12.3) fl Neut % (Auto) 69.0 (34.0-71.1) % Lymph % (Auto) 17.0 L (19.3-51.7) % [place] % (Auto) 7.5 (4.7-12.5) % Eos % (Auto) 6.1 H (0.7-5.8) Baso % (Auto) 0.3 (0.1-1.2) % Neut # (Auto) 7.12 H (1.56-6.13) K/mm3 Lymph # (Auto) 1.75 (1.18-3.74) K/mm3 [place] # (Auto) 0.77 H (0.24-0.36) K/mm3 Eos # (Auto) 0.63 H (0.04-0.36) K/mm3 Baso # (Auto) 0.03 (0.01-0.08) K/mm3 Sodium 146 H (136-145) mEq/L Potassium 3.8 (3.5-5.1) mEq/L Chloride 109 H (98-107) mEq/L Carbon Dioxide 29 (21-32) mEq/L Anion Gap 11.8 (5-15) BUN 10 (7-18) mg/dL Creatinine 0.9 (0.55-1.02) mg/dL Est Cr Clr Drug Dosing 73.19 mL/min Estimated GFR (MDRD) > 60 (>60) mL/min BUN/Creatinine Ratio 11.1 L (14-18) Glucose 93 (70-99) mg/dL Calcium 8.2 L (8.5-10.1) mg/dL Total Bilirubin 0.3 (0.2-1.0) mg/dL AST 15 (15-37) U/L ALT 23 (14-59) U/L Alkaline Phosphatase 78 (46-116) U/L C-Reactive Protein 0.9 (<1.0) mg/dL Total Protein 7.5 (6.4-8.2) g/dl Albumin 3.6 (3.4-5.0) g/dl Globulin 3.9 gm/dL Albumin/Globulin Ratio 0.9 L (1-2) Lipase 101 (73-393) U/L SARS-CoV-2 RNA ([place]) Negative (NEGATIVE) Meds: Medications Generic Name Dose Route Start Last Admin Trade Name Freq PRN Reason Stop Dose Admin Sodium Chloride 1,000 mls @ 1,000 mls/hr 11/15/20 09:30 11/15/20 09:29 Normal Saline IV 1,000 mls/hr .BOLUS NEIL Administration Sodium Chloride 10 ml 11/15/20 09:21 11/15/20 09:29 Sodium Chloride 0.9% 10 Ml Syringe FLUSH 10 ml ASDIRECTED PRN Administration Keep Vein Open - Re-Assessments/Exams Free Text/Narrative Re-Assessment/Exam: 11/15/20 12:27 I ordered an IV NS 1L bolus, labs and COVID 19. The patient got zofran by EMS and is doing better. Her WBC was slightly elevated at 10.31. Her Na is elevated at 146. Her COVID 19 is negative. She feels better. She is on clindamycin. This could be related to that. I will give her some zofran for the nausea and vomiting. Her tooth looks good. She may be able to stop the clindamycin. Departure - Departure Time of Disposition: 12:30 Disposition: Home, Self-Care 01 Condition: Good Clinical Impression: Viral URI Nausea and vomiting Qualifiers: Vomiting type: unspecified Vomiting Intractability: non-intractable Qualified Code(s): R11.2 - Nausea with vomiting, unspecified - Discharge Information *PRESCRIPTION DRUG MONITORING PROGRAM REVIEWED*: Not Applicable *COPY OF PRESCRIPTION DRUG MONITORING REPORT IN PATIENT NIDIA: Not Applicable Prescriptions: Ondansetron [Zofran ODT] 4 mg PO Q6H PRN #20 tab.dis PRN Reason: Nausea\vomiting Referrals: Yvon Leal PA-C [Primary Care Provider] - 1 Week Additional Instructions: Drink plenty of fluids. Take the zofran every 6 hours as needed for nausea and vomiting. You can stop the clindamycin. That may be making your vomit. Pleas return if you are worse. Sepsis Event Note (ED) - Focused Exam Vital Signs: Vital Signs Temp Pulse Resp BP Pulse Ox 11/15/20 09:11 97.3 F 79 18 207/117 H 97 - My Orders Last 24 Hours: My Active Orders 11/15/20 09:21 Cardiac Monitoring [RC] . DIRECTED Peripheral IV Care [RC] . DIRECTED Sodium Chloride 0.9% [Saline Flush] 10 ml FLUSH ASDIRECTED PRN Peripheral IV Insertion Adult [OM.PC] Stat 11/15/20 09:30 Sodium Chloride 0.9% [Normal Saline] 1,000 ml IV .BOLUS - Assessment/Plan Last 24 Hours: My Active Orders 11/15/20 09:21 Cardiac Monitoring [RC] . DIRECTED Peripheral IV Care [RC] . DIRECTED Sodium Chloride 0.9% [Saline Flush] 10 ml FLUSH ASDIRECTED PRN Peripheral IV Insertion Adult [OM.PC] Stat 11/15/20 09:30 Sodium Chloride 0.9% [Normal Saline] 1,000 ml IV .BOLUS
== END 2020-11-15 12:46 | disposition home or self-care (01) ==
LOC: JD.ED 09:07
DX: J06.9 Acute upper respiratory infection, unspecified (principal); R11.2 Nausea with vomiting, unspecified; I10 Essential (primary) hypertension; E66.9 Obesity, unspecified; Z68.35 Body mass index [BMI] 35.0-35.9, adult; Z88.0 Allergy status to penicillin; Z72.0 Tobacco use; Z20.822 Contact with and (suspected) exposure to COVID-19
CPT/HCPCS: 36415; 71045; 80053; 83690; 85025; 86140; 87635; 99284; J7030; 99283; U0002

== ENCOUNTER 2021-08-09 22:34 | Emergency (ER) | payer MEDICAID ==
[2021-08-09] MEDS ORDERED: Lactated Ringers 1,000 ML IV ONE (23:17)
[2021-08-09] MEDS ORDERED: diphenhydrAMINE 50 MG/ML SDV IVPUSH ONE (23:17)
[2021-08-09] MEDS ORDERED: Ondansetron 4 MG/2 ML SDV IVPUSH ONE (23:17)
== END 2021-08-10 00:40 | disposition home or self-care (01) ==
LOC: JD.ED 22:34
DX: R51.9 Headache, unspecified (principal); F17.210 Nicotine dependence, cigarettes, uncomplicated; I10 Essential (primary) hypertension; E66.9 Obesity, unspecified; Z88.0 Allergy status to penicillin; Z68.35 Body mass index [BMI] 35.0-35.9, adult
CPT/HCPCS: 96361; 96374; 96375; 99283; J1200; J2405; J7120; 99282

== ENCOUNTER 2021-09-26 15:55 | Emergency (ER) | payer MEDICAID ==
[2021-09-26] MEDS ORDERED: Ondansetron 4 MG Tab.DIS PO ONE (16:42)
[2021-09-26] MEDS ORDERED: Metoprolol Tartrate 25 MG Tab PO ONE (16:42)
== END 2021-09-26 18:37 | disposition home or self-care (01) ==
LOC: JD.ED 15:55
DX: I10 Essential (primary) hypertension (principal); E66.9 Obesity, unspecified; Z68.35 Body mass index [BMI] 35.0-35.9, adult; Z88.0 Allergy status to penicillin; Z79.899 Other long term (current) drug therapy; Z90.49 Acquired absence of other specified parts of digestive tract
CPT/HCPCS: 36415; 70450; 80053; 85025; 99284; A9270

== ENCOUNTER 2021-10-28 21:16 | Emergency (ER) | payer MEDICAID ==
[2021-10-28] MEDS ORDERED: Metoprolol Tartrate 25 MG Tab PO ONE (23:37)
== END 2021-10-28 23:57 | disposition home or self-care (01) ==
LOC: JD.ED 21:16
DX: F32.A Depression, unspecified (principal); I10 Essential (primary) hypertension; F17.210 Nicotine dependence, cigarettes, uncomplicated; E66.9 Obesity, unspecified; Z68.35 Body mass index [BMI] 35.0-35.9, adult; Z88.0 Allergy status to penicillin; Z79.899 Other long term (current) drug therapy
CPT/HCPCS: 99283; A9270

== ENCOUNTER 2021-11-17 19:28 | Emergency (ER) | payer MEDICAID ==
[2021-11-17] MEDS ORDERED: Ketorolac 60 MG/2 ML SDV IM ONE (21:31)
[2021-11-17] MEDS ORDERED: HYDROmorphone 1 MG/ML Syringe IM ONE (21:31)
[2021-11-17] MEDS ORDERED: Cyclobenzaprine 10 MG Tab PO ONE (21:32)
[2021-11-17] MEDS ORDERED: Ondansetron 4 MG Tab.DIS PO ONE (22:47)
== END 2021-11-17 23:00 | disposition home or self-care (01) ==
LOC: JD.ED 19:28
DX: S16.1XXA Strain of muscle, fascia and tendon at neck level, initial encounter (principal); I10 Essential (primary) hypertension; E66.9 Obesity, unspecified; F17.210 Nicotine dependence, cigarettes, uncomplicated; Z68.35 Body mass index [BMI] 35.0-35.9, adult; Z88.0 Allergy status to penicillin; Z79.899 Other long term (current) drug therapy; X50.0XXA Overexertion from strenuous movement or load, initial encounter
CPT/HCPCS: 96372; 99283; A9270; J1170; J1885

== ENCOUNTER 2021-12-24 11:17 | Emergency (ER) | payer MEDICAID ==
[2021-12-24] MEDS ORDERED: Hydrochlorothiazide 25 MG Tab PO ONE (14:08)
[2021-12-24 15:19] LABS: CORONAVIRUS COVID-19 NAA NEGATIVE (NEGATIVE)
== END 2021-12-24 14:35 | disposition home or self-care (01) ==
LOC: JD.ED 11:17
DX: J45.20 Mild intermittent asthma, uncomplicated (principal); I10 Essential (primary) hypertension; E11.9 Type 2 diabetes mellitus without complications; E03.9 Hypothyroidism, unspecified; F17.210 Nicotine dependence, cigarettes, uncomplicated; E66.9 Obesity, unspecified; Z68.34 Body mass index [BMI] 34.0-34.9, adult; Z88.0 Allergy status to penicillin; Z79.899 Other long term (current) drug therapy; Z20.822 Contact with and (suspected) exposure to COVID-19
CPT/HCPCS: 0241U; 36415; 71046; 80053; 84443; 84484; 85025; 85379; 93005; 99285; A9270

== ENCOUNTER 2022-02-15 18:02 | Emergency (ER) | payer MEDICAID ==
[2022-02-15] MEDS ORDERED: Metoprolol Succinate 50 MG Tab.ER PO ONE (19:04)
[2022-02-15] MEDS ORDERED: Lisinopril 20 MG Tab PO ONE (19:49)
[2022-02-15] MEDS ORDERED: Hydrochlorothiazide 25 MG Tab PO ONE (19:50)
== END 2022-02-15 20:38 | disposition home or self-care (01) ==
LOC: JD.ED 18:02
DX: I10 Essential (primary) hypertension (principal); F17.210 Nicotine dependence, cigarettes, uncomplicated; E66.9 Obesity, unspecified; Z68.36 Body mass index [BMI] 36.0-36.9, adult; Z88.0 Allergy status to penicillin; Z79.899 Other long term (current) drug therapy
CPT/HCPCS: 36415; 80053; 84443; 84484; 85025; 93005; 99283; A9270

== ENCOUNTER 2022-04-28 15:04 | Emergency (ER) | payer MEDICAID ==
[2022-04-28] MEDS ORDERED: Ibuprofen 600 MG Tab PO ONE (15:38)
[2022-04-28] MEDS ORDERED: Acetaminophen/oxyCODONE 325-5 MG Tab PO ONE (15:38)
== END 2022-04-28 17:25 | disposition home or self-care (01) ==
LOC: JD.ED 15:04
DX: R07.89 Other chest pain (principal); R07.2 Precordial pain; I10 Essential (primary) hypertension; J45.909 Unspecified asthma, uncomplicated; F17.210 Nicotine dependence, cigarettes, uncomplicated; E66.9 Obesity, unspecified; Z68.36 Body mass index [BMI] 36.0-36.9, adult; Z88.0 Allergy status to penicillin; Z79.899 Other long term (current) drug therapy
CPT/HCPCS: 36415; 71045; 80053; 84484; 85025; 85379; 86140; 93005; 99285; A9270; 99284

== ENCOUNTER 2022-06-15 06:41 | Emergency (ER) | payer MEDICAID ==
[2022-06-15] MEDS ORDERED: Sodium Chloride 0.9% 10 ML Syringe FLUSH PRN (07:25)
[2022-06-15] MEDS ORDERED: Metoprolol Tartrate 50 MG Tab PO ONE ×2 (07:27→07:45)
[2022-06-15] MEDS ORDERED: Sodium Chloride 0.9% 1,000 ML IV SCH (07:30)
== END 2022-06-15 09:25 | disposition home or self-care (01) ==
LOC: JD.ED 06:41
DX: R55 Syncope and collapse (principal); I10 Essential (primary) hypertension; J45.909 Unspecified asthma, uncomplicated; E66.9 Obesity, unspecified; Z68.36 Body mass index [BMI] 36.0-36.9, adult; Z72.0 Tobacco use; Z88.0 Allergy status to penicillin; Z79.899 Other long term (current) drug therapy
CPT/HCPCS: 36415; 80053; 83735; 84484; 85025; 93005; 96360; 96361; 99284; A9270; J3490; J7030; 93010; 99283

== ENCOUNTER 2022-07-09 19:39 | Emergency (ER) | payer MEDICAID ==
[2022-07-09] MEDS ORDERED: Albuterol/Ipratropium 3.0-0.5 MG/3 ML Neb Soln NEB ONE (20:18)
[2022-07-09] MEDS ORDERED: Albuterol 6.7 GM Inhaler INH ONE (21:32)
[2022-07-09] MEDS ORDERED: predniSONE 20 MG Tab PO ONE (21:36)
== END 2022-07-09 22:01 | disposition home or self-care (01) ==
LOC: JD.ED 19:39
DX: J45.901 Unspecified asthma with (acute) exacerbation (principal); I10 Essential (primary) hypertension; E66.9 Obesity, unspecified; Z68.36 Body mass index [BMI] 36.0-36.9, adult; Z88.0 Allergy status to penicillin; Z79.899 Other long term (current) drug therapy; Z72.0 Tobacco use
CPT/HCPCS: 36415; 71045; 80053; 85025; 86140; 93005; 94640; 99284; A9270; J7512; 93010; 99283; J7620-GY

== ENCOUNTER 2022-08-16 23:40 | Emergency (ER) | payer MEDICAID | END 2022-08-17 01:12 | disposition home or self-care (01) | LOC: JD.ED 23:40 | DX: S60.221A Contusion of right hand, initial encounter (principal); I10 Essential (primary) hypertension; J45.909 Unspecified asthma, uncomplicated; E66.9 Obesity, unspecified; Z68.35 Body mass index [BMI] 35.0-35.9, adult; Z88.0 Allergy status to penicillin; Z79.899 Other long term (current) drug therapy; Z72.0 Tobacco use; W22.09XA Striking against other stationary object, initial encounter | CPT/HCPCS: 73130-26-RT; 73130-RT; 99283 ==

== ENCOUNTER 2022-10-19 13:54 | Emergency (ER) | payer SELFPAY ==
[2022-10-19] MEDS ORDERED: Labetalol 100 MG/20 ML MDV IVPUSH ONE (14:21)
[2022-10-19 14:51] LABS: BASOPHILS ABSOLUTE AUTO 0.02 K/mm3 (0.01-0.08); BASOPHILS PERCENT AUTO 0.2 % (0.1-1.2); EOSINOPHILS ABSOLUTE AUTO 0.45 K/mm3 (0.04-0.36); EOSINOPHILS PERCENT AUTO 3.9 (0.7-5.8); HEMATOCRIT 38.8 % (34.1-44.9); HEMOGLOBIN 12.3 gm/dl (11.2-15.7); IMMATURE GRAN ABSOLUTE AUTO 0.01 K/mm3 (0.00-0.10); IMMATURE GRAN PERCENT AUTO 0.1 % (<=1.0); LYMPHOCYTES ABSOLUTE AUTO 2.42 K/mm3 (1.18-3.74); LYMPHOCYTES PERCENT AUTO 21.2 % (19.3-51.7); MEAN CORPUSCULAR HGB CONC 31.7 g/dl (32.2-35.5); MEAN CORPUSCULAR VOLUME 85.3 fl (79.4-94.8); MEAN PLATELET VOLUME 10.1 fl (9.4-12.3); MONOCYTES ABSOLUTE AUTO 0.68 K/mm3 (0.24-0.36); MONOCYTES PERCENT AUTO 5.9 % (4.7-12.5); NEUTROPHILS ABSOLUTE AUTO 7.86 K/mm3 (1.56-6.13); NEUTROPHILS PERCENT AUTO 68.7 % (34.0-71.1); PLATELET COUNT,PLT 315 K/mm3 (182-369); RED BLOOD CELL COUNT 4.55 M/mm3 (3.98-5.22); WHITE BLOOD CELL COUNT,WBC 11.44 K/mm3 (3.98-10.04)
[2022-10-19 15:07] LABS: INR 0.94; PROTHROMBIN TIME 10.1 SECONDS (9.7-12.0)
[2022-10-19 15:13] LABS: A/G RATIO 0.7 (1-2); ALBUMIN 3.2 g/dl (3.4-5.0); ANION GAP 13.7 (5-15); BILIRUBIN TOTAL 0.3 mg/dL (0.2-1.0); CALCIUM 8.3 mg/dL (8.5-10.1); EST CRCL DRUG DOSING (CG) 64.58 mL/min; POTASSIUM,K 3.7 mEq/L (3.5-5.1); PROTEIN TOTAL,TP 7.5 g/dl (6.4-8.2)
== END 2022-10-19 16:44 | disposition home or self-care (01) ==
LOC: JD.ED 13:54
DX: R42 Dizziness and giddiness (principal); I10 Essential (primary) hypertension; J45.909 Unspecified asthma, uncomplicated; E66.9 Obesity, unspecified; Z68.35 Body mass index [BMI] 35.0-35.9, adult; Z88.0 Allergy status to penicillin; Z79.899 Other long term (current) drug therapy
CPT/HCPCS: 36415; 70450; 80053; 84484; 85025; 85610; 93005; 96374; 99284; J3490; 93010

== ENCOUNTER 2023-03-14 09:40 | Emergency (ER) | payer MEDICAID ==
[2023-03-14] MEDS ORDERED: Sodium Chloride 0.9% 10 ML Syringe FLUSH PRN (10:11)
[2023-03-14] MEDS ORDERED: Labetalol 100 MG/20 ML MDV IVPUSH ONE (10:12)
[2023-03-14 10:47] LABS: BASOPHILS ABSOLUTE AUTO 0.1 K/mm3 (0.0-0.2); BASOPHILS PERCENT AUTO 0.5 % (0.0-1.0); EOSINOPHILS ABSOLUTE AUTO 0.5 K/mm3 (0.0-0.4); EOSINOPHILS PERCENT AUTO 4.1 % (0.0-6.0); HEMATOCRIT 36.4 % (37.0-47.0); HEMOGLOBIN 11.5 gm/dl (12.0-16.0); IMMATURE GRAN ABSOLUTE AUTO 0.04 K/mm3 (0.00-0.05); IMMATURE GRAN PERCENT AUTO 0.3 % (0.0-0.4); LYMPHOCYTES ABSOLUTE AUTO 2.7 K/mm3 (1.0-4.8); LYMPHOCYTES PERCENT AUTO 21.5 % (24.0-44.0); MEAN CORPUSCULAR HEMOGLOBIN 26.7 pg (28.0-32.0); MEAN CORPUSCULAR HGB CONC 31.6 g/dl (32.0-36.0); MEAN CORPUSCULAR VOLUME 84.5 fl (83.0-99.0); MEAN PLATELET VOLUME 9.4 fl (9.4-12.3); MONOCYTES ABSOLUTE AUTO 0.7 K/mm3 (0.0-0.8); MONOCYTES PERCENT AUTO 5.8 % (0.0-8.0); NEUTROPHILS ABSOLUTE AUTO 8.6 K/mm3 (1.8-7.7); NEUTROPHILS PERCENT AUTO 67.8 % (41.0-71.0); PLATELET COUNT,PLT 314 K/mm3 (150-400); RED BLOOD CELL COUNT 4.31 M/mm3 (4.10-5.30); WHITE BLOOD CELL COUNT,WBC 12.69 K/mm3 (3.9-11.3)
[2023-03-14 11:03] LABS: A/G RATIO 0.7 (1-2); ALBUMIN 3.1 g/dl (3.4-5.0); ANION GAP 9.4 (5-15); BILIRUBIN TOTAL 0.3 mg/dL (0.2-1.0); CALCIUM 8.5 mg/dL (8.5-10.1); EST CRCL DRUG DOSING (CG) 63.93 mL/min; POTASSIUM,K 3.4 mEq/L (3.5-5.1); PROTEIN TOTAL,TP 7.4 g/dl (6.4-8.2)
== END 2023-03-14 12:00 | disposition home or self-care (01) ==
LOC: JD.ED 09:40
DX: I10 Essential (primary) hypertension (principal); J45.909 Unspecified asthma, uncomplicated; F17.210 Nicotine dependence, cigarettes, uncomplicated; Z88.0 Allergy status to penicillin; E66.9 Obesity, unspecified; Z68.37 Body mass index [BMI] 37.0-37.9, adult; Z79.899 Other long term (current) drug therapy
CPT/HCPCS: 36415; 80053; 84484; 85025; 93005; 96374; 99284; J3490

== ENCOUNTER 2023-04-28 17:03 | Emergency (ER) | payer SELFPAY ==
[2023-04-28 17:35] LABS: BASOPHILS ABSOLUTE AUTO 0.1 K/mm3 (0.0-0.2); BASOPHILS PERCENT AUTO 0.5 % (0.0-1.0); EOSINOPHILS ABSOLUTE AUTO 0.6 K/mm3 (0.0-0.4); EOSINOPHILS PERCENT AUTO 5.2 % (0.0-6.0); HEMATOCRIT 36.7 % (37.0-47.0); HEMOGLOBIN 11.5 gm/dl (12.0-16.0); IMMATURE GRAN ABSOLUTE AUTO 0.02 K/mm3 (0.00-0.05); IMMATURE GRAN PERCENT AUTO 0.2 % (0.0-0.4); LYMPHOCYTES ABSOLUTE AUTO 3.2 K/mm3 (1.0-4.8); LYMPHOCYTES PERCENT AUTO 29.7 % (24.0-44.0); MEAN CORPUSCULAR HEMOGLOBIN 26.4 pg (28.0-32.0); MEAN CORPUSCULAR HGB CONC 31.3 g/dl (32.0-36.0); MEAN CORPUSCULAR VOLUME 84.2 fl (83.0-99.0); MEAN PLATELET VOLUME 9.3 fl (9.4-12.3); MONOCYTES ABSOLUTE AUTO 0.6 K/mm3 (0.0-0.8); MONOCYTES PERCENT AUTO 5.9 % (0.0-8.0); NEUTROPHILS ABSOLUTE AUTO 6.4 K/mm3 (1.8-7.7); NEUTROPHILS PERCENT AUTO 58.5 % (41.0-71.0); PLATELET COUNT,PLT 334 K/mm3 (150-400); RED BLOOD CELL COUNT 4.36 M/mm3 (4.10-5.30); WHITE BLOOD CELL COUNT,WBC 10.86 K/mm3 (3.9-11.3)
[2023-04-28] MEDS: Aspirin 81 MG Tab.Chew PO ONE (17:51)
[2023-04-28] MEDS: Sodium Chloride 0.9% 10 ML Syringe FLUSH PRN (17:52)
[2023-04-28 18:13] LABS: PROTHROMBIN TIME 9.9 SECONDS (9.7-12.0)
[2023-04-28 18:14] LABS: D-DIMER QUANTITATIVE 0.32 mg/L (0.19-0.50)
[2023-04-28 18:16] LABS: INR < 0.93
[2023-04-28 18:24] LABS: A/G RATIO 0.8 (1-2); ALBUMIN 3.4 g/dl (3.4-5.0); ANION GAP 11.8 (5-15); BILIRUBIN TOTAL 0.2 mg/dL (0.2-1.0); BUN/CREATININE RATIO 11.1 (14-18); CALCIUM 8.6 mg/dL (8.5-10.1); CREATININE 0.9 mg/dL (0.55-1.02); EST CRCL DRUG DOSING (CG) 71.03 mL/min; POTASSIUM,K 3.8 mEq/L (3.5-5.1); PROTEIN TOTAL,TP 7.6 g/dl (6.4-8.2)
[2023-04-28] MEDS: Albuterol/Ipratropium 3.0-0.5 MG/3 ML Neb Soln NEB ONE (18:32)
[2023-04-28 19:48] LABS: APPEARANCE,URINE CLEAR (Clear); BILIRUBIN,URINE NEGATIVE (Negative); COLOR,URINE YELLOW (Yellow); GLUCOSE,URINE NEGATIVE (Negative); KETONES,URINE NEGATIVE (Negative); LEUKOCYTE ESTERASE,URINE NEGATIVE (Negative); NITRITE,URINE NEGATIVE (Negative); OCCULT BLOOD,URINE TRACE-INTACT (Negative); PH,URINE 6.5 (5.0-8.0); PROTEIN,URINE NEGATIVE (Negative); UROBILINOGEN,URINE 0.2 (0.2-1.0)
[2023-04-28] MEDS: Labetalol 100 MG/20 ML MDV IVPUSH ONE ×2 (19:53→20:32)
[2023-04-28 19:56] LABS: BACTERIA,URINE FEW /hpf (FEW); MUCUS,URINE FEW /hpf (FEW); RBC,URINE 0-5 /hpf (0-5); WBC,URINE 0-5 /hpf (0-5)
[2023-04-28 20:03] LABS: BARBITURATE SCREEN,URINE NEGATIVE (CUTOFF=200); BENZODIAZEPINES SCREEN,URINE NEGATIVE (CUTOFF=150); BUPRENORPHINE SCREEN,URINE NEGATIVE (CUTOFF=10); METHADONE SCREEN, URINE NEGATIVE (CUTOFF=200); METHAMPHETAMINES SCREEN, URINE NEGATIVE (CUTOFF=500); OXYCODONE SCREEN,URINE NEGATIVE (CUT0FF=100); THC SCREEN,URINE 20 NG/ML NEGATIVE (CUTOFF=50)
[2023-04-28 20:06] LABS: AMPHETAMINES SCREEN, URINE NEGATIVE (CUTOFF=500)
[2023-04-28] MEDS: Albuterol 6.7 GM Inhaler INH ONE (21:14)
== END 2023-04-28 21:25 | disposition home or self-care (01) ==
LOC: JD.ED 17:03
DX: J45.909 Unspecified asthma, uncomplicated (principal); I10 Essential (primary) hypertension; E66.9 Obesity, unspecified; Z68.37 Body mass index [BMI] 37.0-37.9, adult; Z88.0 Allergy status to penicillin; Z79.899 Other long term (current) drug therapy
CPT/HCPCS: 36415; 70450; 71046; 80053; 80306; 81001; 83735; 83880; 84484; 85025; 85379; 85610; 93005; 94640; 96374; 96376; 99285; A9270; J1921; J3490; J7620-GY

== ENCOUNTER 2023-10-06 09:44 | Emergency (ER) | payer MEDICAID ==
[2023-10-06] MEDS: Sodium Chloride 0.9% 10 ML Syringe FLUSH PRN (10:26)
[2023-10-06] MEDS: Albuterol/Ipratropium 3.0-0.5 MG/3 ML Neb Soln NEB ONE ×2 (10:28→11:45)
[2023-10-06] MEDS: methylPREDNISolone Sodium Succinate 125 MG/2 ML SDV IVPUSH ONE (10:38)
[2023-10-06 10:42] LABS: BASOPHILS ABSOLUTE AUTO 0.1 K/mm3 (0.0-0.2); BASOPHILS PERCENT AUTO 0.4 % (0.0-1.0); HEMATOCRIT 39.3 % (37.0-47.0); HEMOGLOBIN 12.2 gm/dl (12.0-16.0); IMMATURE GRAN ABSOLUTE AUTO 0.04 K/mm3 (0.00-0.05); IMMATURE GRAN PERCENT AUTO 0.3 % (0.0-0.4); LYMPHOCYTES ABSOLUTE AUTO 2.2 K/mm3 (1.0-4.8); LYMPHOCYTES PERCENT AUTO 17.2 % (24.0-44.0); MEAN CORPUSCULAR HEMOGLOBIN 25.4 pg (28.0-32.0); MEAN CORPUSCULAR VOLUME 81.9 fl (83.0-99.0); MEAN PLATELET VOLUME 9.3 fl (9.4-12.3); MONOCYTES ABSOLUTE AUTO 0.7 K/mm3 (0.0-0.8); MONOCYTES PERCENT AUTO 5.6 % (0.0-8.0); NEUTROPHILS ABSOLUTE AUTO 8.8 K/mm3 (1.8-7.7); NEUTROPHILS PERCENT AUTO 68.5 % (41.0-71.0); PLATELET COUNT,PLT 339 K/mm3 (150-400); WHITE BLOOD CELL COUNT,WBC 12.87 K/mm3 (3.9-11.3)
[2023-10-06 11:06] LABS: CORONAVIRUS COVID-19 NAA NEGATIVE (NEGATIVE); INFLUENZA A NAA NEGATIVE (NEGATIVE); RESPIRATORY SYNCYTIAL VIR NAA NEGATIVE (NEGATIVE)
[2023-10-06 11:06] LABS: A/G RATIO 0.8 (1-2); ALBUMIN 3.7 g/dl (3.4-5.0); ANION GAP 14.7 (5-15); BILIRUBIN TOTAL 0.4 mg/dL (0.2-1.0); C-REACTIVE PROTEIN 2.85 mg/dL (<0.30); CALCIUM 9.1 mg/dL (8.5-10.1); CREATININE 0.9 mg/dL (0.55-1.02); EST CRCL DRUG DOSING (CG) 71.03 mL/min; POTASSIUM,K 3.7 mEq/L (3.5-5.1); PROTEIN TOTAL,TP 8.1 g/dl (6.4-8.2)
[2023-10-06] MEDS: Albuterol 6.7 GM Inhaler INH ONE (12:15)
== END 2023-10-06 12:20 | disposition home or self-care (01) ==
LOC: JD.ED 09:44
DX: J45.901 Unspecified asthma with (acute) exacerbation (principal); F17.210 Nicotine dependence, cigarettes, uncomplicated; E66.9 Obesity, unspecified; Z68.35 Body mass index [BMI] 35.0-35.9, adult; J45.909 Unspecified asthma, uncomplicated; Z86.16 Personal history of COVID-19; I10 Essential (primary) hypertension; Z79.899 Other long term (current) drug therapy; Z88.0 Allergy status to penicillin
CPT/HCPCS: 0241U; 36415; 71045; 80053; 85025; 86140; 94640; 96374; 99285; A9270; J2919; J3490; J7620-GY

== ENCOUNTER 2023-11-30 13:41 | Emergency (ER) | payer MEDICAID, OTHER ==
[2023-11-30] MEDS: Labetalol 100 MG/20 ML MDV IVPUSH ONE ×3 (15:37→18:08)
[2023-11-30] MEDS: Albuterol/Ipratropium 3.0-0.5 MG/3 ML Neb Soln NEB ONE ×3 (15:38→19:33)
[2023-11-30] MEDS: methylPREDNISolone Sodium Succinate 125 MG/2 ML SDV IVPUSH ONE (15:42)
[2023-11-30 15:47] LABS: BASOPHILS ABSOLUTE AUTO 0.1 K/mm3 (0.0-0.2); BASOPHILS PERCENT AUTO 0.3 % (0.0-1.0); EOSINOPHILS ABSOLUTE AUTO 0.2 K/mm3 (0.0-0.4); EOSINOPHILS PERCENT AUTO 0.9 % (0.0-6.0); HEMATOCRIT 38.4 % (37.0-47.0); IMMATURE GRAN ABSOLUTE AUTO 0.09 K/mm3 (0.00-0.05); IMMATURE GRAN PERCENT AUTO 0.5 % (0.0-0.4); LYMPHOCYTES ABSOLUTE AUTO 1.5 K/mm3 (1.0-4.8); LYMPHOCYTES PERCENT AUTO 8.6 % (24.0-44.0); MEAN CORPUSCULAR HEMOGLOBIN 25.8 pg (28.0-32.0); MEAN CORPUSCULAR HGB CONC 31.3 g/dl (32.0-36.0); MEAN CORPUSCULAR VOLUME 82.4 fl (83.0-99.0); MEAN PLATELET VOLUME 9.4 fl (9.4-12.3); MONOCYTES ABSOLUTE AUTO 0.5 K/mm3 (0.0-0.8); MONOCYTES PERCENT AUTO 2.6 % (0.0-8.0); NEUTROPHILS ABSOLUTE AUTO 15.1 K/mm3 (1.8-7.7); NEUTROPHILS PERCENT AUTO 87.1 % (41.0-71.0); PLATELET COUNT,PLT 328 K/mm3 (150-400); RED BLOOD CELL COUNT 4.66 M/mm3 (4.10-5.30); WHITE BLOOD CELL COUNT,WBC 17.36 K/mm3 (3.9-11.3)
[2023-11-30 16:13] LABS: A/G RATIO 0.9 (1-2); ALBUMIN 3.8 g/dl (3.4-5.0); ANION GAP 14.1 (5-15); BILIRUBIN TOTAL 0.3 mg/dL (0.2-1.0); BUN/CREATININE RATIO 10.9 (14-18); CREATININE 1.1 mg/dL (0.55-1.02); EST CRCL DRUG DOSING (CG) 57.53 mL/min; POTASSIUM,K 4.1 mEq/L (3.5-5.1); PROTEIN TOTAL,TP 8.1 g/dl (6.4-8.2)
[2023-11-30] MEDS: amLODIPine 5 MG Tab PO ONE (18:08)
[2023-11-30 19:00] LABS: TSH 1.392 uIU/mL (0.358-3.74)
== END 2023-11-30 19:55 | disposition home or self-care (01) ==
LOC: JD.ED 13:41
DX: R06.02 Shortness of breath (principal); I10 Essential (primary) hypertension; E66.9 Obesity, unspecified; Z90.49 Acquired absence of other specified parts of digestive tract; Z86.16 Personal history of COVID-19; Z79.899 Other long term (current) drug therapy; Z88.0 Allergy status to penicillin; Z68.35 Body mass index [BMI] 35.0-35.9, adult
CPT/HCPCS: 36415; 71046; 80053; 84443; 85025; 94640; 96374; 96375; 96376; 99285; A9270; J1921; J2919; 99284; J7620-GY

== ENCOUNTER 2024-03-15 17:39 | Emergency (ER) | payer SELFPAY ==
[2024-03-15] MEDS: Albuterol/Ipratropium 3.0-0.5 MG/3 ML Neb Soln NEB ONE ×2 (18:31→18:57)
[2024-03-15] MEDS: methylPREDNISolone Sodium Succinate 125 MG/2 ML SDV IVPUSH ONE (18:37)
[2024-03-15] MEDS: Sodium Chloride 0.9% 1,000 ML IV ONE (18:37)
[2024-03-15 19:20] LABS: BASOPHILS PERCENT AUTO 0.4 % (0.0-1.0); EOSINOPHILS ABSOLUTE AUTO 0.5 K/mm3 (0.0-0.4); EOSINOPHILS PERCENT AUTO 4.7 % (0.0-6.0); HEMATOCRIT 35.7 % (37.0-47.0); HEMOGLOBIN 10.9 gm/dl (12.0-16.0); IMMATURE GRAN ABSOLUTE AUTO 0.04 K/mm3 (0.00-0.05); IMMATURE GRAN PERCENT AUTO 0.4 % (0.0-0.4); LYMPHOCYTES ABSOLUTE AUTO 2.6 K/mm3 (1.0-4.8); LYMPHOCYTES PERCENT AUTO 24.5 % (24.0-44.0); MEAN CORPUSCULAR HEMOGLOBIN 24.5 pg (28.0-32.0); MEAN CORPUSCULAR HGB CONC 30.5 g/dl (32.0-36.0); MEAN CORPUSCULAR VOLUME 80.4 fl (83.0-99.0); MEAN PLATELET VOLUME 9.3 fl (9.4-12.3); MONOCYTES ABSOLUTE AUTO 0.9 K/mm3 (0.0-0.8); MONOCYTES PERCENT AUTO 8.2 % (0.0-8.0); NEUTROPHILS ABSOLUTE AUTO 6.5 K/mm3 (1.8-7.7); NEUTROPHILS PERCENT AUTO 61.8 % (41.0-71.0); PLATELET COUNT,PLT 324 K/mm3 (150-400); RED BLOOD CELL COUNT 4.44 M/mm3 (4.10-5.30); WHITE BLOOD CELL COUNT,WBC 10.48 K/mm3 (3.9-11.3)
[2024-03-15 19:40] LABS: A/G RATIO 0.8 (1-2); ALBUMIN 3.1 g/dl (3.4-5.0); ANION GAP 12.5 (5-15); BILIRUBIN TOTAL 0.3 mg/dL (0.2-1.0); BUN/CREATININE RATIO 7.3 (14-18); CALCIUM 8.2 mg/dL (8.5-10.1); CREATININE 1.1 mg/dL (0.55-1.02); EST CRCL DRUG DOSING (CG) 57.53 mL/min; POTASSIUM,K 3.5 mEq/L (3.5-5.1); PROTEIN TOTAL,TP 7.2 g/dl (6.4-8.2)
[2024-03-15] MEDS: Acetaminophen/oxyCODONE 325-5 MG Tab PO ONE (19:55)
== END 2024-03-15 21:47 | disposition home or self-care (01) ==
LOC: JD.ED 17:39
DX: J45.909 Unspecified asthma, uncomplicated (principal); J02.9 Acute pharyngitis, unspecified; J06.9 Acute upper respiratory infection, unspecified; Z88.0 Allergy status to penicillin; E66.9 Obesity, unspecified; Z86.16 Personal history of COVID-19; Z90.49 Acquired absence of other specified parts of digestive tract; Z79.899 Other long term (current) drug therapy
CPT/HCPCS: 36415; 71046; 80053; 85025; 94640; 96361; 96374; 99285; A9270; J2919; J7030; J7620-GY

== ENCOUNTER 2024-06-07 16:57 | Emergency (ER) | payer SELFPAY ==
[2024-06-07] MEDS: Albuterol 0.083% 2.5 MG/3 ML Neb Soln NEB ONE (17:50)
[2024-06-07] MEDS: Albuterol 6.7 GM Inhaler INH ONE (18:00)
[2024-06-07] MEDS: methylPREDNISolone Sodium Succinate 125 MG/2 ML SDV IVPUSH ONE (18:16)
[2024-06-07] MEDS: Sodium Chloride 0.9% 10 ML Syringe FLUSH PRN (18:16)
[2024-06-07] MEDS: Albuterol 6.7 GM Inhaler INH PRN (18:17)
[2024-06-07] MEDS: Labetalol 100 MG/20 ML MDV IVPUSH ONE (18:17)
== END 2024-06-07 19:12 | disposition home or self-care (01) ==
LOC: JD.ED 16:57
DX: J45.901 Unspecified asthma with (acute) exacerbation (principal); I10 Essential (primary) hypertension; E66.9 Obesity, unspecified; Z68.35 Body mass index [BMI] 35.0-35.9, adult; Z86.16 Personal history of COVID-19; Z90.49 Acquired absence of other specified parts of digestive tract; Z88.0 Allergy status to penicillin; Z79.51 Long term (current) use of inhaled steroids; Z79.899 Other long term (current) drug therapy
CPT/HCPCS: 94640; 96374; 96375; 99284; A9270; J1920; J2919; J7613; 99283

== ENCOUNTER 2024-09-27 22:31 | Emergency (ER) | payer MEDICAID, OTHER | END 2024-09-28 01:14 | disposition home or self-care (01) | LOC: JD.ED 22:31 | DX: J45.901 Unspecified asthma with (acute) exacerbation (principal); I10 Essential (primary) hypertension; F17.210 Nicotine dependence, cigarettes, uncomplicated; Z88.0 Allergy status to penicillin; Z79.51 Long term (current) use of inhaled steroids; Z79.899 Other long term (current) drug therapy; Z86.16 Personal history of COVID-19 | CPT/HCPCS: 94640; 99284; J3535; J7512; J7620; A9270-GY ==